=== PATIENT | female | born 1930 | race Caucasian/White ===

== ENCOUNTER → 2016-08-16 | Outpatient (CLI) | payer MEDICARE, BC ==
[2015-10-29 11:39] VITALS: BP 136/70
[~2016-08-16] MED LIST: AMLO5TAB2 PO; APIX2.5T PO; ATOR40TA59 PO; CIPR500T94 PO; CLOP75TA PO; CLOP75TA27 PO; FAMO-63 PO; FERR325T72 PO; LATA2.5D3 EACHEYE; LEVO250T7 PO; LOSA100T6 PO; METF500T4 PO; METO-313 PO; METO100T2 PO; MULT-658 PO; MULT1TAB6 PO; Oxycodone Hcl/Acetaminophen PO; TRAM50TA PO; WARF1TAB PO; ZOLP5TAB PO
[2016-08-16 11:45] LABS: BASO # 0.1 x10^3/uL (0.0-0.2); BASO % 1 % (0-3); EOS % 2 % (0-3); HEMATOCRIT 40.5 % (36.0-47.0); HEMOGLOBIN 13.4 g/dL (12.0-15.5); LYMPH # 1.4 x10^3/uL (1.0-4.8); LYMPH % 16 % (24-48); MEAN CORPUSCULAR HEMOGLOBIN 30 pg (25-35); MEAN CORPUSCULAR HGB CONC 33 g/dL (31-37); MEAN CORPUSCULAR VOLUME 90 fL (79-100); MONO % 11 % (0-9); NEUT % 70 % (31-73); PLATELET COUNT 174 x10^3/uL (140-400)
[2016-08-16 11:57] LABS: INR 1.2 (0.8-1.1); PROTHROMBIN TIME PATIENT 14.5 SEC (11.7-14.0)
--- NOTE | 2016-08-16 12:23 | EKG ---
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
[2016-08-16 12:29] LABS: ALBUMIN 3.7 g/dL (3.4-5.0); CALCIUM 9.6 mg/dL (8.5-10.1); CREATININE 1.1 mg/dL (0.6-1.0); GFR 47.2; POTASSIUM 4.6 mmol/L (3.5-5.1)
[2016-08-16 13:09] LABS: BILIRUBIN,URINE NEGATIVE (NEG); GLUCOSE,URINE NEGATIVE (NEG); NITRITE,URINE NEGATIVE (NEG); PROTEIN,URINE NEGATIVE (NEG-TRACE); UROBILINOGEN,URINE 0.2 mg/dL (0.2 mg/dL)
--- NOTE | 2016-08-16 13:12 | RAD ---
Indication preop. Anticipated knee surgery. PA and lateral views of the chest were obtained and are compared to an examination 10/27/2015. Heart and pulmonary vessels are unremarkable. Calcified hilar lymph nodes are noted similar to the previous exam. An acute parenchymal infiltrate in either lung is not seen. Significant pleural fluid is not seen. There is no pneumothorax. There has not been a significant change in the appearance of the chest compared to the previous exam. IMPRESSION: No acute finding in the chest. No significant change
[2016-08-16 13:34] LABS: BACTERIA,URINE MODERATE /HPF (0-FEW); RBC,URINE 0 /HPF (0-2); SQUAMOUS EPITHELIAL CELL,UR MOD /LPF
== END | disposition home or self-care (01) ==
LOC: SURGPAT 11:08
PROVIDERS: ATTEND Orthopaedic Surgery
DX: Z01.818 Encounter for other preprocedural examination (principal)
CPT/HCPCS: 36415; 71020; 80048; 81001; 82040; 83036; 85027; 85610; 85651; 85730; 87086; 87641; 93005

== ENCOUNTER → 2016-08-28 | Outpatient (CLI) | payer MEDICARE, BC ==
[2015-10-29 11:39] VITALS: BP 136/70
[~2016-08-28] MED LIST changes: +MORPHINE SULFATE 5 MG, KETOROLAC TROMETHAMINE 30 MG, ROPIVacaine 0.5% PF 60 ML, EPINEPH... INT ART ONE
[2016-08-28 10:23] LABS: BILIRUBIN,URINE NEGATIVE (NEG); GLUCOSE,URINE NEGATIVE (NEG); NITRITE,URINE NEGATIVE (NEG); PH,URINE 6.5; PROTEIN,URINE NEGATIVE (NEG-TRACE); UROBILINOGEN,URINE 0.2 mg/dL (0.2 mg/dL)
[2016-08-28 10:37] LABS: BACTERIA,URINE 0 /HPF (0-FEW); RBC,URINE 0 /HPF (0-2); SQUAMOUS EPITHELIAL CELL,UR MANY /LPF
== END | disposition home or self-care (01) ==
LOC: LAB 09:35
PROVIDERS: ATTEND Orthopaedic Surgery
DX: Z01.818 Encounter for other preprocedural examination (principal); N39.0 Urinary tract infection, site not specified
CPT/HCPCS: 81001; 87086; J0171; J1885; J2270; J2795

== ENCOUNTER → 2016-11-30 | Outpatient (CLI) | payer MEDICARE, BC ==
[~2016-11-30] MED LIST changes: -CLOP75TA27 PO; +CLOP75TA57 PO; -MORPHINE SULFATE 5 MG, KETOROLAC TROMETHAMINE 30 MG, ROPIVacaine 0.5% PF 60 ML, EPINEPH... INT ART ONE; +OXYC-323 PO; -WARF1TAB PO; +WARF1TAB74 PO
--- NOTE | 2016-11-30 08:50 | RAD ---
DATE: 11/30/2016 EXAM: DIGITAL SCREEN BILAT W/CAD HISTORY: Screening COMPARISON: One year earlier This study was interpreted with the benefit of Computerized Aided Detection (CAD). FINDINGS: Breast Density: SCATTERED The breast parenchyma shows scattered fibroglandular densities. Breast parenchyma level B. There has not been a significant change in the appearance of the breasts compared to the previous exam IMPRESSION: Benign finding BI-RADS CATEGORY: 2 BENIGN FINDING(S) RECOMMENDED FOLLOW-UP: 12M 12 MONTH FOLLOW-UP PQRS compliance statement: Patient information was entered into a reminder system with a target due date 11/30/2017 for the next mammogram. Mammography is a sensitive method for finding small breast cancers, but it does not detect them all and is not a substitute for careful clinical examination. A negative mammogram does not negate a clinically suspicious finding and should not result in delay in biopsying a clinically suspicious abnormality. "Our facility is accredited by the [employer] Mammography Program."
== END | disposition home or self-care (01) ==
LOC: MAMMO 08:10
PROVIDERS: ATTEND Family Medicine
DX: Z12.31 Encounter for screening mammogram for malignant neoplasm of breast (principal)
CPT/HCPCS: G0202; 77067

== ENCOUNTER 2017-01-27 12:07 | Observation (INO) | payer MEDICARE, BC ==
[~2017-01-27] VITALS: Ht 170.2 cm; Wt 78.9 kg
--- NOTE | 2017-01-27 12:50 | PHYS DOC ---
Past Medical History Past Medical History: Diabetes-Type II, High Cholesterol, Hypertension, [place], Stroke Past Surgical History: Appendectomy, Cholecystectomy, Hip Replacement, Hysterectomy, Knee Replacement Additional Past Surgical Histo: LEFT HIP,BILAT CATARACT Alcohol Use: None Drug Use: None Adult General Chief Complaint Chief Complaint: WEAKNESS/GENERALIZED HPI HPI Patient is a 86 year old [f__sex] who presents with [] Review of Systems Review of Systems Constitutional: Denies fever or chills [] Eyes: Denies change in visual acuity, redness, or eye pain [] HENT: Denies nasal congestion or sore throat [] Respiratory: Denies cough or shortness of breath [] Cardiovascular: No additional information not addressed in HPI [] GI: Denies abdominal pain, nausea, vomiting, bloody stools or diarrhea [] : Denies dysuria or hematuria [] Musculoskeletal: Denies back pain or joint pain [] Integument: Denies rash or skin lesions [] Neurologic: Denies headache, focal weakness or sensory changes [] Endocrine: Denies polyuria or polydipsia [] Allergies Allergies Allergies Coded Allergies Type Severity Reaction Last Updated Verified MAHOGANY Inhibitors Allergy Intermediate 08/29/16 Yes Histamine H2 Inhibitors Allergy Intermediate Rash 08/29/16 Yes aspirin Adverse Reaction Intermediate GASTRIC IRRITATION 08/29/16 Yes Physical Exam Physical Exam Constitutional: Well developed, well nourished, no acute distress, non-toxic appearance. [] HENT: Normocephalic, atraumatic, bilateral external ears normal, oropharynx moist, no oral exudates, nose normal. [] Eyes: PERRLA, EOMI, conjunctiva normal, no discharge. [] Neck: Normal range of motion, no tenderness, supple, no stridor. [] Cardiovascular:Heart rate regular rhythm, no murmur [] Lungs & Thorax: Bilateral breath sounds clear to auscultation [] Abdomen: Bowel sounds normal, soft, no tenderness, no masses, no pulsatile masses. [] Skin: Warm, dry, no erythema, no rash. [] Back: No tenderness, no CVA tenderness. [] Extremities: No tenderness, no cyanosis, no clubbing, ROM intact, no edema. [] Neurologic: Alert and oriented X 3, normal motor function, normal sensory function, no focal deficits noted. [] Psychologic: Affect normal, judgement normal, mood normal. [] Current Patient Data Vital Signs Vital Signs Date Time Temp Pulse Resp B/P (MAP) Pulse Ox O2 Delivery O2 Flow Rate FiO2 01/27/17 12:41 98.3 71 18 183/89 (120) 100 Room Air 98.3 Lab Values Laboratory Tests Test 01/27/17 12:55 01/27/17 13:10 White Blood Count 9.3 x10^3/uL (4.0-11.0) Red Blood Count 4.65 x10^6/uL (3.50-5.40) Hemoglobin 13.4 g/dL (12.0-15.5) Hematocrit 41.0 % (36.0-47.0) Mean Corpuscular Volume 88 fL (79-100) Mean Corpuscular Hemoglobin 29 pg (25-35) Mean Corpuscular Hemoglobin Concent 33 g/dL (31-37) Red Cell Distribution Width 16.1 % (11.5-14.5) H Platelet Count 182 x10^3/uL (140-400) Neutrophils (%) (Auto) 76 % (31-73) H Lymphocytes (%) (Auto) 14 % (24-48) L Monocytes (%) (Auto) 8 % (0-9) Eosinophils (%) (Auto) 1 % (0-3) Basophils (%) (Auto) 1 % (0-3) Neutrophils # (Auto) 7.1 x10^3uL (1.8-7.7) Lymphocytes # (Auto) 1.3 x10^3/uL (1.0-4.8) Monocytes # (Auto) 0.8 x10^3/uL (0.0-1.1) Eosinophils # (Auto) 0.1 x10^3/uL (0.0-0.7) Basophils # (Auto) 0.1 x10^3/uL (0.0-0.2) Sodium Level 137 mmol/L (136-145) Potassium Level 4.4 mmol/L (3.5-5.1) Chloride Level 101 mmol/L (98-107) Carbon Dioxide Level 26 mmol/L (21-32) Anion Gap 10 (6-14) Blood Urea Nitrogen 12 mg/dL (7-20) Creatinine 1.1 mg/dL (0.6-1.0) H Estimated GFR (Cockcroft-Gault) 47.2 Glucose Level 122 mg/dL (70-99) H Calcium Level 9.8 mg/dL (8.5-10.1) Total Bilirubin 0.4 mg/dL (0.2-1.0) Direct Bilirubin 0.1 mg/dL (0.0-0.2) Aspartate Amino Transferase (AST) 25 U/L (15-37) Alanine Aminotransferase (ALT) 35 U/L (14-59) Alkaline Phosphatase 70 U/L (46-116) Troponin I Quantitative < 0.017 ng/mL (0.000-0.055) Total Protein 7.3 g/dL (6.4-8.2) Albumin 3.8 g/dL (3.4-5.0) Urine Collection Type Unknown Urine Color Yellow Urine Clarity Clear Urine pH 6.5 Urine Specific [place] <=1.005 Urine Protein Negative mg/dL (NEG-TRACE) Urine Glucose (UA) Negative mg/dL (NEG) Urine Ketones (Stick) Negative mg/dL (NEG) Urine Blood Negative (NEG) Urine Nitrite Negative (NEG) Urine Bilirubin Negative (NEG) Urine Urobilinogen Dipstick 0.2 mg/dL (0.2 mg/dL) Urine Leukocyte Esterase Moderate (NEG) Urine RBC 0 /HPF (0-2) Urine WBC 11-20 /HPF (0-4) Urine Squamous Epithelial Cells Few /LPF Urine Transitional Epithelial Cells Few /LPF Urine Bacteria Many /HPF (0-FEW) Laboratory Tests 01/27/17 12:55 Laboratory Tests 01/27/17 12:55 EKG EKG 1233 SR 73 no stemi, TWI V1-2[] 1325 SR 71, no stemi, TWI V1-2 TWI have been seen previously in past ekgs on 11/10 and 06/11 Sinus monitor shows irregular rhythm occasionally. Radiology/Procedures Radiology/Procedures nothing acute on cxr[] Course & Med Decision Making Course & Med Decision Making Pertinent Labs and Imaging studies reviewed. (See chart for details) 1400 pt in nad, agrees for obs admit for monitoring. [address] Goel (covering for Dr Martinez), agrees with obs and admit under Juan she will see pt today. [] Dragon Disclaimer Dragon Disclaimer This electronic medical record was generated, in whole or in part, using a voice recognition dictation system. Departure Departure Impression: Primary Impression: Weakness Additional Impression: Irregular heart beat Disposition: ADMITTED INPATIENT Admitting Physician: Gómez Martinez Condition: STABLE Referrals: STEVEN CLAIRE MD (PCP) Problem Qualifiers Carleen POOLE MD Jan 27, 2017 12:50
[2017-01-27 13:04] LABS: BASO # 0.1 x10^3/uL (0.0-0.2); BASO % 1 % (0-3); EOS % 1 % (0-3); HEMOGLOBIN 13.4 g/dL (12.0-15.5); LYMPH # 1.3 x10^3/uL (1.0-4.8); LYMPH % 14 % (24-48); MEAN CORPUSCULAR HEMOGLOBIN 29 pg (25-35); MEAN CORPUSCULAR HGB CONC 33 g/dL (31-37); MEAN CORPUSCULAR VOLUME 88 fL (79-100); MONO % 8 % (0-9); NEUT % 76 % (31-73); PLATELET COUNT 182 x10^3/uL (140-400); RED BLOOD COUNT 4.65 x10^6/uL (3.50-5.40); RED CELL DISTRIBUTION WIDTH 16.1 % (11.5-14.5); WHITE BLOOD COUNT 9.3 x10^3/uL (4.0-11.0)
[2017-01-27 13:11] LABS: CALCIUM 9.8 mg/dL (8.5-10.1); CREATININE 1.1 mg/dL (0.6-1.0); GFR 47.2; POTASSIUM 4.4 mmol/L (3.5-5.1)
[2017-01-27 13:16] LABS: BILIRUBIN,URINE NEGATIVE (NEG); GLUCOSE,URINE NEGATIVE (NEG); NITRITE,URINE NEGATIVE (NEG); PH,URINE 6.5; PROTEIN,URINE NEGATIVE (NEG-TRACE); UROBILINOGEN,URINE 0.2 mg/dL (0.2 mg/dL)
[2017-01-27 13:20] LABS: ALBUMIN 3.8 g/dL (3.4-5.0); DIRECT BILIRUBIN 0.1 mg/dL (0.0-0.2); TOTAL BILIRUBIN 0.4 mg/dL (0.2-1.0); TOTAL PROTEIN 7.3 g/dL (6.4-8.2)
--- NOTE | 2017-01-27 13:45 | RAD ---
EXAM: CHEST 1 VIEW History: Weakness, dizziness COMPARISON: 08/16/2016 TECHNIQUE: Single portable radiograph of the chest FINDINGS: The cardiac silhouette is unremarkable. The lungs are clear bilaterally. The costophrenic sulci are clear and well demarcated. Bilateral hilar calcified lymph nodes identified. IMPRESSION: No radiographic evidence of an acute cardiopulmonary process.
[2017-01-27 13:49] LABS: BACTERIA,URINE MANY /HPF (0-FEW); RBC,URINE 0 /HPF (0-2); SQUAMOUS EPITHELIAL CELL,UR FEW /LPF
[2017-01-27] MEDS ORDERED: ONDANSETRON PF 4 MG/2 ML VIAL. IV PRN (14:15)
[2017-01-27 15:00] VITALS: BP 151/71
--- NOTE | 2017-01-27 15:24 | EKG ---
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
[2017-01-27 15:30] VITALS: BP 151/71
[2017-01-27] MEDS ORDERED: TRAM50TA PO (16:07)
[2017-01-27] MEDS ORDERED: ATOR40TA59 PO (16:07)
[2017-01-27] MEDS ORDERED: traMADol 50 MG TABLET PO PRN (17:15)
[2017-01-27] MEDS: metFORMIN 500 MG TABLET PO SCH (17:30)
[2017-01-27] MEDS: LOSARTAN POTASSIUM 50 MG TABLET. PO SCH (17:33)
[2017-01-27] MEDS: amLODIPine BESYLATE 5 MG TABLET PO SCH (17:33)
--- NOTE | 2017-01-27 18:39 | EKG ---
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
[2017-01-27 19:11] VITALS: BP 143/65
[2017-01-27] MEDS ORDERED: LATANOPROST 0.005% OPHTH SOLUTION 2.5ML BOTTLE. OU SCH (21:00)
[2017-01-27] MEDS ORDERED: ATORVASTATIN CALCIUM 40 MG TABLET. PO SCH (21:00)
[2017-01-27] MEDS: APIXABAN 2.5 MG TABLET. PO SCH (21:55)
[2017-01-27] MEDS: METOPROLOL TART IMMED RELEASE 50 MG TABLET. PO SCH (21:56)
[2017-01-27 23:00] VITALS: BP 127/60
--- NOTE | 2017-01-28 01:57 | ACF ---
Admission Forms Criteria TELEMETRY CARE Telemetry Admission Guidelines (Place 'X' for any and all applicable criteria): Admission to telemetry [A] may be indicated for ANY ONE of the following(1)(2)(3 )(4)(5): [ X]I. Cardiac disease, including ANY ONE of the following (9)(10)(11)(12)( 13): [ ]a) Postacute WV [ ]b) Low-risk patients with ST-segment elevation WV who have undergone successful percutaneous coronary intervention [ ]c) Unstable angina [ ]d) Suspected WV (until it is ruled out) [ ]e) Post cardiac surgery (first 48 to 72 hours unless complications occur) [ X]f) Acute arrhythmias (including significant tachycardia or bradycardia) [B] [ ]g) Firing of an implantable cardioverter defibrillator [C] [ ]h) Suspected pacemaker or implantable cardioverter defibrillator malfunction (10) [ ]i) New administration or adjustment of an antiarrhythmic drug [D ] [ ]j) Child admitted for acute congestive heart failure [ ]j) Long QT syndrome [ ]k) Advanced heart block (eg, second-degree Mobitz type II, third- degree heart block) [ ]l) Acute myocarditis or pericarditis [ ]m) Short-term (ambulatory or inpatient) monitoring after a cardiac procedure as indicated by ANY ONE of the following [E]: [ ]i) Electrophysiologic studies [ ]ii) Percutaneous coronary intervention with stent placement [ ]iii) Pacemaker placement with cardiac conduction defect [ ]iv) Implantable cardiac defibrillator placement [ ]II. Drug overdose or poisoning with substance that causes arrhythmias or QT prolongation (eg, phenothiazines, sympathomimetic agents, cyclic antidepressants, digitalis, antiarrhythmic drugs)(15) [ ]III. Short-term (ambulatory or inpatient) monitoring after therapeutic or diagnostic procedure requiring conscious sedation or anesthesia (eg, endoscopy, elective cardioversion) [ ]IV. Acute cerebrovascular even[F](18) [ ]V. Massive blood transfusion (eg, at least 10 units of packed red blood cells in 24 hours) [ ]. Variceal bleeding after endoscopy, sclerotherapy, or IV vasopressin [ ]VII. Uncorrected electrolyte abnormalities associated with an increased risk of dangerous arrhythmia [G]; examples include [ ]a) Hyperkalemia with attributable ECG changes [ ]b) Potassium greater than 6.5 mmol/L (mEq/L) in a patient without history of chronic renal disease [ ]c) Prolonged QT attributed to hypokalemia, hypomagnesemia, or hypocalcemia [ ]VIII.Unexplained syncope or other neurologic event suspected of being due to arrhythmia due to a finding that increases risk; examples include(19)(20)(21): [ ]a) High-risk ECG findings (eg, bifascicular block, bradycardia, abnormal QT interval, ventricular pre- excitation) [ ]b) History of previous syncope due to arrhythmia [ ]c) Abnormal ventricular function (eg, reduced ejection fraction ) [ ]d) Exertional or supine syncope [ ]e) Concerning syncope characteristics (eg, sudden loss of consciousness without prodrome) [ ]f) Family history of sudden [ ]g) Use of arrhythmogenic medication [ ]h) Suspected cardiac ischemia [ ]i) Known channelopathy (eg, long QT syndrome, Brugada syndrome, or catecholaminergic paroxysmal ventricular tachycardia) [ ]j) Known structural heart disease (eg, hypertrophic cardiomyopathy , severe valvular disease) [ ]k) Palpitations preceding syncope The original [employer] content created by [employer] has been revised. The portions of the content which have been revised are identified through the use of italic text or in bold, and [facility] has neither reviewed nor approved the modified material. All other unmodified content is copyright [employer]. Please see references footnoted in the original [employer] edition 2015 Admission Criteria Met?: Yes MEKHI HILARIO Jan 28, 2017 01:57
[2017-01-28 03:00] LABS: BASO # 0.1 x10^3/uL (0.0-0.2); BASO % 1 % (0-3); EOS % 2 % (0-3); HEMATOCRIT 36.8 % (36.0-47.0); HEMOGLOBIN 12.1 g/dL (12.0-15.5); LYMPH # 2.3 x10^3/uL (1.0-4.8); LYMPH % 25 % (24-48); MEAN CORPUSCULAR HEMOGLOBIN 29 pg (25-35); MEAN CORPUSCULAR HGB CONC 33 g/dL (31-37); MEAN CORPUSCULAR VOLUME 88 fL (79-100); MONO % 11 % (0-9); NEUT % 62 % (31-73); PLATELET COUNT 162 x10^3/uL (140-400); RED BLOOD COUNT 4.18 x10^6/uL (3.50-5.40); RED CELL DISTRIBUTION WIDTH 16.2 % (11.5-14.5); WHITE BLOOD COUNT 9.1 x10^3/uL (4.0-11.0)
[2017-01-28 03:13] VITALS: BP 129/60
[2017-01-28 03:13] LABS: CALCIUM 9.2 mg/dL (8.5-10.1); CREATININE 1.1 mg/dL (0.6-1.0); GFR 47.2; POTASSIUM 4.3 mmol/L (3.5-5.1)
[2017-01-28 07:00] VITALS: BP 125/59
[2017-01-28] MEDS ORDERED: LOSARTAN POTASSIUM 50 MG TABLET. PO SCH (09:00)
[2017-01-28] MEDS: APIXABAN 2.5 MG TABLET. PO SCH (09:11)
[2017-01-28] MEDS: amLODIPine BESYLATE 5 MG TABLET PO SCH (09:11)
[2017-01-28] MEDS: metFORMIN 500 MG TABLET PO SCH (09:11)
[2017-01-28] MEDS: METOPROLOL TART IMMED RELEASE 50 MG TABLET. PO SCH (09:11)
[2017-01-28 09:12] VITALS: BP 125/59
[2017-01-28] MEDS: LOSARTAN POTASSIUM 50 MG TABLET. PO SCH (09:12)
[2017-01-28] MEDS ORDERED: LEVO750T5 PO (11:19)
--- NOTE | 2017-01-28 12:41 | CARD ---
APPROVED REPORT EXAM: Two-dimensional and M-mode echocardiogram with Doppler and color Doppler. Other Information Quality : GoodHR: 77bpm Rhythm : Irregular INDICATION Dizziness and Vertigo RISK FACTORS Hypertension 2D DIMENSIONS RVDd2.9 (2.9-3.5cm)Left Atrium(2D)3.7 (1.6-4.0cm) IVSd1.0 (0.7-1.1cm)Aortic Root(2D)2.5 (2.0-3.7cm) LVDd4.9 (3.9-5.9cm)LVOT Diameter2.1 (1.8-2.4cm) PWd1.0 (0.7-1.1cm)LVDs3.2 (2.5-4.0cm) FS (%) 35.0 %SV73.3 ml LVEF(%)64.0 (>50%) Aortic Valve AoV Peak Chuck.128.2cm/sAoV VTI30.0cm AO Peak GR.6.6mmHgLVOT Peak Chuck.111.0cm/s AO Mean GR.4mmHgAVA (VMAX)3.04cm2 Mitral Valve MV E Rxryenbk87.2cm/sMV E Peak Gr.3mmHg MV DECEL [id number] A Uyryjlzx73.8cm/s MV E Mean Gr.2mmHgE/A Ratio1.3 MV A [id number] Pulmonary Valve PV Peak Wfsecvvm97.6cm/s Tricuspid Valve TR P. Asgpepmf219jn/sTR Peak Gr.39mmHg Pulmonary Vein S1 Mrwxbnnm75.5cm/sD2 Hcmfqgpz01.5cm/s PVa qcwsuxni32tcjh LEFT VENTRICLE The left ventricle is normal size. There is normal left ventricular wall thickness. The left ventricu lar systolic function is normal.e The Ejection Fraction is 60-65%. There is normal LV segmental wall motion. Transmitral Doppler flow pattern is normal for age. RIGHT VENTRICLE The right ventricle is normal size. There is normal right ventricular wall thickness. The right ventr icular systolic function is normal. ATRIA The left atrium size is normal. The right atrium size is normal. The interatrial septum is intact wit h no evidence for an atrial septal defect or patent foramen ovale as noted on 2-D or Doppler imaging. AORTIC VALVE The aortic valve is mildly sclerotic. The aortic valve is trileaflet. Doppler and Color Flow revealed no significant aortic regurgitation. There is no significant aortic valvular stenosis. MITRAL VALVE Mitral annular calcification is mild. The mitral valve leaflets are thickened and calcified. There is no evidence of mitral valve prolapse. There is no mitral valve stenosis. Doppler and Color Flow reve aled mild to moderate mitral regurgitation. TRICUSPID VALVE Doppler and Color Flow revealed mild tricuspid regurgitation. The pulmonary artery systolic pressure is estimated at 42 mmHg. There is mild pulmonary hypertension. PULMONIC VALVE The pulmonic valve is not well visualized but appears to open adequately. Doppler and Color Flow reve aled no pulmonic valvular regurgitation. There is no pulmonic valvular stenosis by spectral Doppler. GREAT VESSELS The aortic root is normal in size. The ascending aorta is normal in size. The pulmonary artery is nor mal. The IVC is normal in size and collapses >50% with inspiration. PERICARDIAL EFFUSION There is no evidence of significant pericardial effusion. Critical Notification Critical Value: No <Conclusion> The left ventricle is normal size. There is normal left ventricular wall thickness. The left ventricular systolic function is normal.e The Ejection Fraction is 60-65%. Transmitral Doppler flow pattern is normal for age. There is no evidence of significant pericardial effusion. Mitral annular calcification is mild. The mitral valve leaflets are thickened and calcified. There is no mitral valve stenosis. Doppler and Color Flow revealed mild to moderate mitral regurgitation. The left atrium is of a normal size. There is no aortic stenosis or regurgitation. The right ventricle is of a normal size with normal systolic function. Doppler and Color Flow revealed mild tricuspid regurgitation. The pulmonary artery systolic pressure is estimated at 42 mmHg. There is mild pulmonary hypertension. The pulmonic valve is normal.
--- NOTE | 2017-01-28 19:10 | DS ---
DATE OF DISCHARGE: 01/28/2017 HOSPITAL COURSE: This is an 86-year-old white female who presented herself to the Emergency Room with marked weakness and dizziness. She had no pain. She was concerned that she could be having a problem such as a TIA, which she has had before, more of acute coronary syndrome and she has had that also before with a stent placement. She went to the urgent care today. She was noted to have some extra beats. She was asked to go to the Emergency Room. In the Emergency Room, it was noted that these extra beats were due to premature atrial contractions. LABORATORY INVESTIGATIONS: Were as follows: The hemoglobin was 12.1. The sodium was 142, potassium 4.3, BUN was 14 and creatinine was 1.1. The troponin was negative. The total cholesterol was 161. Triglycerides 99, LDL cholesterol 87 and HDL cholesterol was 54. Urinalysis showed moderate urine leukocyte esterase. Urine nitrite was negative. There 11-20 wbc's per high power field. She had no urinary symptoms of dysuria or frequency. She had no fever. She was surprised that she might have had a UTI. A chest x-ray was unremarkable. The EKG was normal except for PACs. She was observed. She was feeling much better. She had no further symptoms. There were no arrhythmias. She was given 1 g of Rocephin IV on the day of admission and she was started on levofloxacin 500 mg once a day. The urine culture was not yet available. Because of her weakness and fatigue, an echocardiogram was done. This showed EF of 60%-65%. There was a grade 1 diastolic dysfunction. There is mild to moderate mitral regurgitation. There was mild pulmonary hypertension with right ventricular systolic pressure of 42 mmHg. She was feeling well on 01/27/2017. She was anxious to go home. She was thus discharged. FINAL DIAGNOSES: 1. Weakness and fatigue, probably due to urinary tract infection. 2. Urinary tract infection, organism not yet identified. 3. Hypertension, under control. 4. Coronary artery disease. 5. Diabetes mellitus. HOMEGOING INSTRUCTIONS: 1. She was asked to take levofloxacin 500 mg for 2 more days. 2. Cranberry juice. 3. Heart healthy diet. 4. She was asked to continue to take her medications, which were: 5. Amlodipine 5 mg a day. 6. Eliquis 2.5 mg twice a day, which she has been taking ever since her stroke. 7. Atorvastatin 40 mg at night. 8. Latanoprost eye drops. 9. Losartan 100 mg a day. 10. Metformin 500 mg twice a day. 11. Metoprolol 100 mg a day. 12. Tramadol p.r.n. I plan to call the Bacteriology Department, further urine culture and sensitivity and the antibiotics will be changed and Dr. Sotelo informed. If the organism is not sensitive to this, levofloxacin. She was asked to see Dr. Sotelo within the week. By then, we should have the results of the urine culture and sensitivity. KEMAR KNOX MD DR: ELSA/saqib JOB#: [id number] / [id number]
== END 2017-01-28 11:40 | disposition home or self-care (01) ==
LOC: ER 12:07 → 2 SOUTH 13:57
PROVIDERS: ADMIT Internal Medicine Cardiovascular Disease; ATTEND Internal Medicine Cardiovascular Disease
DX: R53.1 Weakness (principal); I49.8 Other specified cardiac arrhythmias; E11.9 Type 2 diabetes mellitus without complications; E78.00 Pure hypercholesterolemia, unspecified; I10 Essential (primary) hypertension; I25.2 Old myocardial infarction; Z86.73 Personal history of transient ischemic attack (TIA), and cerebral infarction without residual deficits; N39.0 Urinary tract infection, site not specified; I25.10 Atherosclerotic heart disease of native coronary artery without angina pectoris; I49.1 Atrial premature depolarization; Z79.01 Long term (current) use of anticoagulants; Z79.899 Other long term (current) drug therapy; Z96.659 Presence of unspecified artificial knee joint; Z96.649 Presence of unspecified artificial hip joint
CPT/HCPCS: 36415; 71010; 80048; 80061; 80076; 81001; 82962; 83036; 84484; 85025; 87086; 87186; 93005; 93306; 96365; 99285; G0378; J0696; G0379

== ENCOUNTER → 2017-12-04 | Outpatient (CLI) | payer MEDICARE, BC | END | disposition home or self-care (01) | LOC: MAMMO 08:37 | DX: Z12.31 Encounter for screening mammogram for malignant neoplasm of breast (principal); I10 Essential (primary) hypertension; E11.9 Type 2 diabetes mellitus without complications; E78.5 Hyperlipidemia, unspecified; E78.00 Pure hypercholesterolemia, unspecified | CPT/HCPCS: 77063; 77067 ==

== ENCOUNTER 2018-08-30 11:10 | Inpatient (IN) | payer MEDICARE, BC ==
[~2018-08-30] VITALS: Ht 170.2 cm; Wt 74.8 kg
[~2018-08-30 11:10] MED LIST changes: +AMLO5TAB10 PO; -AMLO5TAB2 PO; +LEVO750T5 PO; +LOSA100T14 PO; -LOSA100T6 PO; +METF500T16 PO; -METF500T4 PO; -METO100T2 PO; +METO100T7 PO; -OXYC-323 PO; +OXYC1TAB15 PO
[2018-08-30] MEDS ORDERED: IV NORMAL SALINE 500ML BAG 500 ML IV ONE (12:15)
[2018-08-30 12:17] LABS: BASO # 0.1 x10^3/uL (0.0-0.2); BASO % 1 % (0-3); EOS # 0.1 x10^3/uL (0.0-0.7); EOS % 1 % (0-3); HEMATOCRIT 38.2 % (36.0-47.0); HEMOGLOBIN 11.8 g/dL (12.0-15.5); LYMPH # 0.6 x10^3/uL (1.0-4.8); LYMPH % 5 % (24-48); MEAN CORPUSCULAR HEMOGLOBIN 28 pg (25-35); MEAN CORPUSCULAR HGB CONC 31 g/dL (31-37); MEAN CORPUSCULAR VOLUME 89 fL (79-100); MONO # 0.7 x10^3/uL (0.0-1.1); MONO % 5 % (0-9); NEUT # 10.7 x10^3uL (1.8-7.7); NEUT % 88 % (31-73); PLATELET COUNT 231 x10^3/uL (140-400); RED CELL DISTRIBUTION WIDTH 15.7 % (11.5-14.5); WHITE BLOOD COUNT 12.1 x10^3/uL (4.0-11.0)
[2018-08-30 12:18] LABS: BILIRUBIN,URINE NEGATIVE (NEG); CLARITY,URINE CLOUDY; COLOR,URINE YELLOW; NITRITE,URINE POSITIVE (NEG); PROTEIN,URINE NEGATIVE (NEG-TRACE)
--- NOTE | 2018-08-30 12:28 | EKG ---
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
--- NOTE | 2018-08-30 12:30 | PHYS DOC ---
Past Medical History Past Medical History: Diabetes-Type II, High Cholesterol, Hypertension, [place], Stroke, TIA, UTI Past Surgical History: Appendectomy, Cholecystectomy, Hip Replacement, Hysterectomy, Knee Replacement Additional Past Surgical Histo: LEFT HIP,BILAT CATARACT Past Surgical History cardiac stent Alcohol Use: None Drug Use: None Adult General Chief Complaint Chief Complaint: WEAKNESS/GENERALIZED HPI HPI Patient is a 88 year old female who presents with generalize weakness with slurring speech and nausea since 10 am this morning. Last known normal was 10 am one day before when her son visited her home. She states that she is feeling significantly better now, with resolving strength, and diminished nausea. She reports one prior TIA with no focal deficits. She denies CP/palpitations, SOB, LEACH, change in vision. She denies abdominal pain, but reports some constipation which also resolved upon coming to the ER. She denies frequency, hematuria, dysuria but does have a history of UTI. She reports minimal appetite in general. Review of Systems Review of Systems Constitutional: Denies fever or chills, reports generalized weakness[] Eyes: Denies change in visual acuity, redness, or eye pain [] HENT: Denies nasal congestion or sore throat [] Respiratory: Denies cough or shortness of breath [] Cardiovascular: No additional information not addressed in HPI [] GI: Reports resolving nausea, denies abdominal pain, vomiting, bloody stools or diarrhea [] : Denies dysuria or hematuria, or frequency[] Musculoskeletal: Denies back pain or joint pain [] Integument: Denies rash or skin lesions [] Neurologic: Denies headache, focal weakness or sensory changes [] Endocrine: Denies polyuria or polydipsia [] All other systems were reviewed and found to be within normal limits, except as documented in this note. Current Medications Current Medications Current Medications Medications (Trade) Dose Ordered Sig/Nelly Start Time Stop Time Status Last Admin Dose Admin Ceftriaxone Sodium (Rocephin) 1 gm 1X ONCE 08/30/18 13:30 08/30/18 13:31 DC 08/30/18 14:13 1 GM Doxycycline Hyclate 100 mg/ Dextrose 100 ml @ 50 mls/hr 1X ONCE 08/30/18 13:30 08/30/18 15:29 08/30/18 14:14 50 MLS/HR Sodium Chloride 1,000 ml @ 50 mls/hr Q20H 08/30/18 14:10 08/31/18 02:09 08/30/18 14:10 50 MLS/HR see medication list Allergies Allergies Allergies Coded Allergies Type Severity Reaction Last Updated Verified MAHOGANY Inhibitors Allergy Intermediate 08/29/16 Yes Histamine H2 Inhibitors Allergy Intermediate Rash 08/29/16 Yes aspirin Adverse Reaction Intermediate GASTRIC IRRITATION 08/29/16 Yes Physical Exam Physical Exam Constitutional: Well developed, well nourished, no acute distress, non-toxic appearance. [] HENT: Normocephalic, atraumatic, bilateral external ears normal, oropharynx dry , no oral exudates, nose normal. [] Eyes: PERRLA, EOMI, conjunctiva normal, no discharge. [] Neck: Normal range of motion, no tenderness, supple, no stridor. [] Cardiovascular:Heart rate regular rhythm, Lungs & Thorax: Decreased bibasilar breath sounds. Abdomen: Bowel sounds normal, soft, no tenderness, no masses, no pulsatile masses. [] Skin: Warm, dry, no erythema, no rash. [] Back: No tenderness, no CVA tenderness. [] Extremities: No tenderness, no cyanosis, no clubbing, ROM intact, 1+ symmetric edema noted Neurologic: Alert and oriented X 3, CN 2-11, negative cerebellar signs, normal motor function, normal sensory function, no focal deficits noted. []Possibly mild slurred speech but more likely related to the dry mucous membranes Psychologic: Affect normal, judgement normal, mood normal. [] Current Patient Data Vital Signs Vital Signs Date Time Temp Pulse Resp B/P (MAP) Pulse Ox O2 Delivery O2 Flow Rate FiO2 08/30/18 11:28 97.5 71 20 147/67 (93) 97 Room Air 97.5 Lab Values Laboratory Tests Test 08/30/18 11:37 08/30/18 11:41 08/30/18 12:00 08/30/18 13:00 White Blood Count 12.1 x10^3/uL (4.0-11.0) H Red Blood Count 4.30 x10^6/uL (3.50-5.40) Hemoglobin 11.8 g/dL (12.0-15.5) L Hematocrit 38.2 % (36.0-47.0) Mean Corpuscular Volume 89 fL (79-100) Mean Corpuscular Hemoglobin 28 pg (25-35) Mean Corpuscular Hemoglobin Concent 31 g/dL (31-37) Red Cell Distribution Width 15.7 % (11.5-14.5) H Platelet Count 231 x10^3/uL (140-400) Neutrophils (%) (Auto) 88 % (31-73) H Lymphocytes (%) (Auto) 5 % (24-48) L Monocytes (%) (Auto) 5 % (0-9) Eosinophils (%) (Auto) 1 % (0-3) Basophils (%) (Auto) 1 % (0-3) Neutrophils # (Auto) 10.7 x10^3uL (1.8-7.7) H Lymphocytes # (Auto) 0.6 x10^3/uL (1.0-4.8) L Monocytes # (Auto) 0.7 x10^3/uL (0.0-1.1) Eosinophils # (Auto) 0.1 x10^3/uL (0.0-0.7) Basophils # (Auto) 0.1 x10^3/uL (0.0-0.2) Segmented Neutrophils % 87 % (35-66) H Lymphocytes % 9 % (24-48) L Monocytes % 4 % (0-10) Platelet Estimate Adequate (ADEQUATE) Glucose (Fingerstick) 125 mg/dL (70-99) H Urine Collection Type Unknown Urine Color Yellow Urine Clarity Cloudy Urine pH 6.0 Urine Specific [place] 1.015 Urine Protein Negative mg/dL (NEG-TRACE) Urine Glucose (UA) Negative mg/dL (NEG) Urine Ketones (Stick) Negative mg/dL (NEG) Urine Blood Trace (NEG) Urine Nitrite Positive (NEG) Urine Bilirubin Negative (NEG) Urine Urobilinogen Dipstick 1.0 mg/dL (0.2 mg/dL) Urine Leukocyte Esterase Large (NEG) Urine RBC 0 /HPF (0-2) Urine WBC Tntc /HPF (0-4) Urine Squamous Epithelial Cells Few /LPF Urine Bacteria Many /HPF (0-FEW) Urine Hyaline Casts Few /HPF Urine Mucus Slight /LPF Prothrombin Time 15.6 SEC (11.7-14.0) H Prothrombin Time INR 1.3 (0.8-1.1) H Sodium Level 140 mmol/L (136-145) Potassium Level 4.7 mmol/L (3.5-5.1) Chloride Level 106 mmol/L (98-107) Carbon Dioxide Level 24 mmol/L (21-32) Anion Gap 10 (6-14) Blood Urea Nitrogen 19 mg/dL (7-20) Creatinine 1.3 mg/dL (0.6-1.0) H Estimated GFR (Cockcroft-Gault) 38.7 BUN/Creatinine Ratio 15 (6-20) Glucose Level 115 mg/dL (70-99) H Calcium Level 9.7 mg/dL (8.5-10.1) Total Bilirubin 0.5 mg/dL (0.2-1.0) Aspartate Amino Transferase (AST) 21 U/L (15-37) Alanine Aminotransferase (ALT) 20 U/L (14-59) Alkaline Phosphatase 83 U/L (46-116) Troponin I Quantitative < 0.017 ng/mL (0.000-0.055) Total Protein 7.0 g/dL (6.4-8.2) Albumin 3.4 g/dL (3.4-5.0) Albumin/Globulin Ratio 0.9 (1.0-1.7) L Laboratory Tests 08/30/18 11:37 Laboratory Tests 08/30/18 13:00 EKG EKG []EKG shows normal sinus rhythm rate of 67 there is some probably J-point borderline and does not meet criteria elevation in V2 alone compared to EKG dated 01/27/2017 this is slightly different otherwise no obvious STEMI or ischemia was identified Radiology/Procedures Radiology/Procedures []Impression: 1. There is no evidence of acute intracranial hemorrhage. There are some small foci of low density on the right in the parietal region corresponding with site of previous infarcts MRI brain and 2016. If there is concern for more recent or evolving ischemia, follow-up CT or MRI may be beneficial. Electronically signed by: Socorro Oconnell MD (08/30/2018 12:50 PM) [id number] DICTATED and SIGNED BY: SOCORRO OCONNELL MD DATE: 08/30/18 1250 Impressions: IMPRESSION: Small bilateral pleural effusions and mild bibasilar airspace disease. Electronically signed by: Niranjan Lovelace MD (08/30/2018 12:34 PM) [id number] DICTATED and SIGNED BY: NIRANJAN LOVELACE MD DATE: 08/30/18 1234 Course & Med Decision Making Course & Med Decision Making Pertinent Labs and Imaging studies reviewed. (See chart for details) Pt presents with generalized weakness, nausea and slurry speech , 88-year-old female on Elena Christiano, known CAD, PRIOR CVA, DM, HTN, HLD, resulting with generalized weakness some nausea really no chest pain did have transient abdominal pain around 10 AM family was concerned about slurred speech that has since resolved ER workup shows UTI as well as probable pneumonia. Head CT noted no obvious acute findings, and family says slurred speech is basically back to baseline now. I suspect she has dehydration UTI and pneumonia can cycle troponins in the hospital as well. EKG was slightly different but no definite acute ischemia []D/W ALETHEA IN AGREEMTN. Dragon Disclaimer Dragon Disclaimer This electronic medical record was generated, in whole or in part, using a voice recognition dictation system. Departure Departure Impression: Primary Impression: Pneumonia Additional Impression: Urinary tract infection Disposition: 09 ADMITTED INPATIENT Admitting Physician: Prema Sotelo Condition: STABLE Referrals: PREMA SOTELO MD (PCP) Problem Qualifiers DAVID RICHARDSON MD Aug 30, 2018 12:30
[2018-08-30 12:37] LABS: HYALINE CASTS, URINE FEW /HPF; SQUAMOUS EPITHELIAL CELL,UR FEW /LPF
--- NOTE | 2018-08-30 12:37 | RAD ---
PORTABLE CHEST 1V Clinical Indication: weakness Comparison: AP chest, January 27, 2017. Findings: Atherosclerotic thoracic aorta. Calcified bilateral hilar lymph nodes are stable. The cardiac size is normal. There is no pneumothorax. There are small bilateral pleural effusions. Mild bibasilar airspace disease. No acute bone abnormality. IMPRESSION: Small bilateral pleural effusions and mild bibasilar airspace disease. Electronically signed by: Niranjan Lovelace MD (08/30/2018 12:34 PM) [id number]
[2018-08-30 12:38] LABS: BACTERIA,URINE MANY /HPF (0-FEW); RBC,URINE 0 /HPF (0-2); WBC,URINE TNTC /HPF (0-4)
--- NOTE | 2018-08-30 12:53 | RAD ---
CT HEAD WO CONTRAST History: Slurred speech, weakness Comparison: October 27, [address] exam and October 28, 2015 MRI brain exam Technique: Noncontrast CT imaging was performed of the head. Exposure: One or more of the following individualized dose reduction techniques were utilized for this examination: 1. Automated exposure control 2. Adjustment of the mA and/or kV according to patient size 3. Use of iterative reconstruction technique. Findings: There is no evidence of acute intracranial hemorrhage. There are some small foci of low density near the right parietal cortical surface, previous infarcts in this region on MRI brain in 2016. There is no midline shift or intra-axial mass effect. Ventricular size is within normal limits. Visualized paranasal sinuses and mastoid air cells are aerated. There is atherosclerotic calcification carotid siphons bilaterally. Impression: 1. There is no evidence of acute intracranial hemorrhage. There are some small foci of low density on the right in the parietal region corresponding with site of previous infarcts MRI brain and 2016. If there is concern for more recent or evolving ischemia, follow-up CT or MRI may be beneficial. Electronically signed by: Nelson Jimenez MD (08/30/2018 12:50 PM) [facility]
[2018-08-30 13:15] LABS: % LYMPHS 9 % (24-48); % MONOS 4 % (0-10); % SEGS 87 % (35-66); PLT ESTIMATE ADEQUATE (ADEQUATE)
[2018-08-30] MEDS ORDERED: cefTRIAXone IV Push 1 GM VIAL. IVP ONE (13:30)
[2018-08-30] MEDS ORDERED: DOXYCYCLINE HYCLATE 100 MG in IV DEXTROSE 5% 100ML 100 ML IV ONE (13:30)
[2018-08-30 13:40] LABS: PROTHROMBIN TIME PATIENT 15.6 SEC (11.7-14.0)
[2018-08-30 13:43] LABS: CALCIUM 9.7 mg/dL (8.5-10.1); CREATININE 1.3 mg/dL (0.6-1.0); GFR 38.7; POTASSIUM 4.7 mmol/L (3.5-5.1)
[2018-08-30 13:48] LABS: ALBUMIN 3.4 g/dL (3.4-5.0); ALBUMIN/GLOBULIN RATIO 0.9 (1.0-1.7); TOTAL BILIRUBIN 0.5 mg/dL (0.2-1.0)
[2018-08-30] MEDS ORDERED: IV NORMAL SALINE 1000ML BAG 1,000 ML IV SCH (14:10)
--- NOTE | 2018-08-30 14:33 | EKG ---
[facility] [address] [place] [address] Test Date: 2018-08-30 Test Time: 13:38:07 Pat Name: JEFF NGUYỄN Department: Room: 2 Gender: F Rehab Technician: : [id number] Requested By: DAVID RICHARDSON Order Number: [id number] Reading MD: Jose Nguyen MD Measurements Intervals [place] Rate: 79 P: 37 AK: 170 QRS: -25 QRSD: 66 T: 24 QT: 382 QTc: 439 Interpretive Statements SINUS RHYTHM PVC'S PRIOR ANTEROSEPTAL INFARCT Electronically Signed On 09-03-2018 14:58:45 CDT by Jose Nguyen MD
[2018-08-30 14:51] LABS: INFLUENZA A PATIENT NEGATIVE (NEGATIVE); INFLUENZA B PATIENT NEGATIVE (NEGATIVE)
--- NOTE | 2018-08-30 15:40 | NUR ---
Pt arrived from ER per wheelchair. Admitted to room 672.
[2018-08-30 16:12] VITALS: BP 139/67
--- NOTE | 2018-08-30 17:00 | NUR ---
Pt having occasional PVCs. Sometimes 1-2 every 6 sec. No VTach noted. Underlying rhythm is sinus. Spoke to Dr Valdes. He requested 12 EKG if one was not done. Rhythm is the same as reported in ER. 12 lead EKG done in ER so it was not repeated. Pt has seen Dr Corbin in office.
[2018-08-30] MEDS ORDERED: traMADol 50 MG TABLET PO PRN (17:45)
[2018-08-30] MEDS ORDERED: ANTI-COAG MONITOR BY PHARMACY. MC PRN (17:45)
[2018-08-30] MEDS: LOSARTAN POTASSIUM 50 MG TABLET. PO SCH (18:00)
[2018-08-30] MEDS: amLODIPine BESYLATE 5 MG TABLET PO SCH (18:00)
[2018-08-30 19:10] VITALS: BP 157/70
[2018-08-30] MEDS: METOPROLOL TART IMMED RELEASE 50 MG TABLET. PO SCH ×2 (20:41→21:08)
[2018-08-30] MEDS ORDERED: ATORVASTATIN CALCIUM 40 MG TABLET. PO SCH (21:00)
[2018-08-30] MEDS ORDERED: LATANOPROST 0.005% OPHTH SOLUTION 2.5ML BOTTLE. OU SCH (21:00)
[2018-08-30] MEDS: APIXABAN 2.5 MG TABLET. PO SCH (21:04)
[2018-08-30] MEDS: metFORMIN 500 MG TABLET PO SCH (21:14)
[2018-08-30 23:10] VITALS: BP 129/54
[2018-08-31 03:20] VITALS: BP 135/63
[2018-08-31 07:00] VITALS: BP 145/56
[2018-08-31] MEDS ORDERED: metFORMIN 500 MG TABLET PO SCH (08:00)
[2018-08-31] MEDS: metFORMIN 500 MG TABLET PO SCH (08:35)
[2018-08-31] MEDS: APIXABAN 2.5 MG TABLET. PO SCH (08:36)
[2018-08-31] MEDS: METOPROLOL TART IMMED RELEASE 50 MG TABLET. PO SCH (08:36)
[2018-08-31] MEDS: LOSARTAN POTASSIUM 50 MG TABLET. PO SCH (08:37)
[2018-08-31] MEDS: amLODIPine BESYLATE 5 MG TABLET PO SCH (08:37)
[2018-08-31] MEDS ORDERED: CEPH-264 PO ×2 (09:28→09:29)
[2018-08-31] MEDS ORDERED: CEPHALEXIN 250 MG CAPSULE. PO SCH (10:30)
--- NOTE | 2018-08-31 10:41 | HP ---
ADMIT DATE: 08/30/2018 ADMISSION HISTORY AND PHYSICAL COMBINED DISCHARGE SUMMARY CHIEF COMPLAINT: Generalized weakness. HISTORY OF PRESENT ILLNESS AND HOSPITAL COURSE: This patient is an 88-year-old female who was in the usual state of health 48 hours prior to admission, but began having increasing weakness, described some slurred speech and mild confusion. The patient denied chest pain or shortness of breath, but does have coronary artery disease and was worried that she may be having symptoms of heart-related syndrome. Therefore, she came to the Emergency Room. During the Emergency Room evaluation, she had negative troponins and symptoms had almost completely resolved. She was found to have leukocytosis on U/A and small bilateral pleural effusions. She underwent serial troponins evaluation and was started on IV antibiotics. On hospital day #1, the patient was tolerating diet and was completely asymptomatic. She did have some PVCs early in her hospital stay, but these resolved with hydration. EKG was normal sinus rhythm, without evidence of acute changes. PT and OT were consulted and pending the patient's physical status, plans for discharge to home with p.o. antibiotics were made. PAST MEDICAL HISTORY: The patient's past medical history is significant for previous CVA in 10/2015, previous stent placement with coronary artery disease, type 2 diabetes, hyperlipidemia, hypertension, osteoarthritis and vitamin D deficiency. FAMILY HISTORY: Noncontributory. SOCIAL HISTORY: The patient has never smoked. She does not use alcohol. She lives with her sister. She is . ALLERGIES: SHE EXHIBITS ALLERGIES TO ASPIRIN, CAUSING STOMACH UPSET AND MAHOGANY INHIBITORS CAUSE COUGH. PAST SURGICAL HISTORY: Significant for stent placement, appendectomy, hysterectomy, bilateral oophorectomy, cholecystectomy, cataract surgery, hip arthroplasty and right total knee. REVIEW OF SYSTEMS: The patient was in her usual state of health until 48 hours prior to admission, when she began having weakness and mild confusion. The patient denies cough, congestion, chest pain or shortness of breath. PHYSICAL EXAMINATION: GENERAL: This is a well-nourished, well-developed female, in no apparent distress. She is alert and oriented x 3. HEENT: Benign. NECK: Supple, without JVD or bruit. CARDIAC EXAMINATION: Regular rate and rhythm, without murmur. LUNGS: Clear. ABDOMEN: Soft and nontender, without masses. EXTREMITIES: With 2+ pulses, without significant edema. NEUROLOGICAL EXAMINATION: Show no unilateral findings. ASSESSMENT: 1. Urinary tract infection. 2. Metabolic encephalopathy. 3. Previous cerebrovascular accident. 4. Hypertension. 5. High cholesterol. 6. Type 2 diabetes, on metformin. 7. Coronary artery disease. PLAN: To proceed with IV hydration, p.o. antibiotics and discharge to home, pending physical therapy assessment and proceed with outpatient Cardiology evaluation for stress testing. TOÑO MICHELLE MD DR: JACKIE/saqib JOB#: [id number] / [id number]
[2018-08-31 11:00] VITALS: BP 137/67
--- NOTE | 2018-08-31 12:51 | NUR ---
pt was discharged home with self care. gave her a script for Keflex 500mg PO BID. wheeled her down to the visitors entrance and her family took her home. Jakob Luna RN
== END 2018-08-31 12:52 | disposition home or self-care (01) | DRG 689 ==
LOC: ER 11:10 → 6 SOUTH 14:00
PROVIDERS: ADMIT Family Medicine; ATTEND Family Medicine
DX: N39.0 Urinary tract infection, site not specified (principal); G93.41 Metabolic encephalopathy; E78.00 Pure hypercholesterolemia, unspecified; E11.9 Type 2 diabetes mellitus without complications; I10 Essential (primary) hypertension; I25.2 Old myocardial infarction; Z96.649 Presence of unspecified artificial hip joint; Z96.659 Presence of unspecified artificial knee joint; I25.10 Atherosclerotic heart disease of native coronary artery without angina pectoris; M19.90 Unspecified osteoarthritis, unspecified site; E55.9 Vitamin D deficiency, unspecified; E78.5 Hyperlipidemia, unspecified; I49.3 Ventricular premature depolarization; K59.00 Constipation, unspecified; Z86.73 Personal history of transient ischemic attack (TIA), and cerebral infarction without residual deficits; Z90.49 Acquired absence of other specified parts of digestive tract; Z95.5 Presence of coronary angioplasty implant and graft; Z88.6 Allergy status to analgesic agent; Z88.8 Allergy status to other drugs, medicaments and biological substances; Z90.710 Acquired absence of both cervix and uterus; Z79.84 Long term (current) use of oral hypoglycemic drugs; Z87.440 Personal history of urinary (tract) infections
CPT/HCPCS: 36415; 70450; 71045; 80053; 81001; 82962; 83605; 84484; 85007; 85025; 85610; 87040; 87086; 87186; 87804; 93005; 96361; 96365; 96375; J0696; J3490; J7030; J7040; 99285-25

== ENCOUNTER → 2018-11-26 | Outpatient (CLI) | payer MEDICARE, BC ==
[~2018-11-26] MED LIST changes: +CEPH-264 PO
--- NOTE | 2018-11-26 12:24 | CARD ---
MR#: [id number] Date of Study: 11/26/2018 Ordering Physician: KARMA LANE, Referring Physician: KARMA LANE, Tech: Mikayla Pizarro [facility] APPROVED REPORT EXAM: Two-dimensional and M-mode echocardiogram with Doppler and color Doppler. Other Information Quality : Technically LimitedHR: 63bpm Rhythm : NSRTechnically limited study due to body habitus. INDICATION MR 2D DIMENSIONS RVDd3.3 (2.9-3.5cm)Left Atrium(2D)3.7 (1.6-4.0cm) IVSd1.4 (0.7-1.1cm)Aortic Root(2D)2.8 (2.0-3.7cm) LVDd3.6 (3.9-5.9cm)LVOT Diameter1.8 (1.8-2.4cm) PWd1.1 (0.7-1.1cm)LVDs1.9 (2.5-4.0cm) FS (%) 47.4 %SV43.0 ml Aortic Valve AoV Peak Chuck.126.9cm/sAoV VTI27.5cm AO Peak GR.6.4mmHgLVOT Peak Chuck.100.2cm/s AO Mean GR.3mmHgAVA (VMAX)1.91cm2 SOFYA (VTI)1.90cm2 Mitral Valve MV E Yiudsaqu225.9cm/sMV E Peak Gr.9mmHg MV DECEL RTTR190ccOF A Cfgjbjaw95.0cm/s MV E Mean Gr.2mmHgE/A Ratio2.0 Pulmonary Valve PV Peak Auyikauf02.8cm/s Tricuspid Valve TR P. Hkmewqac670pi/sRAP CGPLYKXH3tjRu TR Peak Gr.94ytSnBVJC99wbTy LEFT VENTRICLE The left ventricle is normal size. There is mild concentric left ventricular hypertrophy. The left ve ntricular systolic function is normal and the ejection fraction is within normal range. The Ejection Fraction is 55-60%. There is normal LV segmental wall motion. Transmitral Doppler flow pattern is Gra de II-pseudonormal filling dynamics. RIGHT VENTRICLE The right ventricle is normal size. There is normal right ventricular wall thickness. The right ventr icular systolic function is normal. ATRIA The left atrium size is normal. The right atrium size is normal. The interatrial septum is intact wit h no evidence for an atrial septal defect or patent foramen ovale as noted on 2-D or Doppler imaging. AORTIC VALVE The aortic valve is not well visualized. The aortic valve is probably trileaflet. Doppler and Color F low revealed trace aortic regurgitation. There is no significant aortic valvular stenosis. MITRAL VALVE Mitral annular calcification is moderate. There is no evidence of mitral valve prolapse. There is no mitral valve stenosis. Doppler and Color-flow revealed mild to moderate mitral regurgitation. TRICUSPID VALVE The tricuspid valve is normal in structure and function. Doppler and Color Flow revealed mild tricusp id regurgitation. The PA pressure was estimated at 46 mmHg. There is no tricuspid valve prolapse or v egetation. There is no tricuspid valve stenosis. PULMONIC VALVE The pulmonic valve is not well visualized. GREAT VESSELS The aortic root is normal in size. The ascending aorta is normal in size. The IVC is normal in size a nd collapses >50% with inspiration. PERICARDIAL EFFUSION There is no evidence of significant pericardial effusion. Critical Notification Critical Value: No <Conclusion> The left ventricle is normal size. The left ventricular systolic function is normal and the ejection fraction is within normal range. The Ejection Fraction is 55-60%. There is mild concentric left ventricular hypertrophy. There is no significant aortic valvular stenosis. Doppler and Color Flow revealed trace aortic regurgitation. Doppler and Color-flow revealed mild to moderate mitral regurgitation. Doppler and Color Flow revealed mild tricuspid regurgitation. The PA pressure was estimated at 46 mmHg. Signed by : Karma Lane MD Electronically Approved : 11/26/2018 12:23:14
== END | disposition home or self-care (01) ==
LOC: ECHO 10:59
PROVIDERS: ATTEND Internal Medicine Cardiovascular Disease
DX: I08.3 Combined rheumatic disorders of mitral, aortic and tricuspid valves (principal); I25.10 Atherosclerotic heart disease of native coronary artery without angina pectoris
CPT/HCPCS: 93306

== ENCOUNTER → 2018-12-12 | Outpatient (CLI) | payer MEDICARE, BC ==
--- NOTE | 2018-12-12 09:40 | RAD ---
DATE: 12/12/2018. EXAM: MAMMO MICHELLE SCREENING BILATERAL HISTORY: Routine screening. COMPARISON: Previous mammogram from 2018 and 2017. This study was interpreted with the benefit of Computerized Aided Detection (CAD). FINDINGS: Breast Density: SCATTERED The breast parenchyma shows scattered fibroglandular densities. Breast parenchyma level B. The skin and nipples are within normal limits. No suspicious calcifications, spiculated mass or area of architectural distortion. Stable bilateral asymmetries. IMPRESSION: No mammographic evidence of malignancy. Stable mammogram. BI-RADS CATEGORY: 2 BENIGN FINDING(S) RECOMMENDED FOLLOW-UP: 12M 12 MONTH FOLLOW-UP PQRS compliance statement: Patient information was entered into a reminder system with a target due date for the next mammogram. Mammography is a sensitive method for finding small breast cancers, but it does not detect them all and is not a substitute for careful clinical examination. A negative mammogram does not negate a clinically suspicious finding and should not result in delay in biopsying a clinically suspicious abnormality. "Our facility is accredited by the [employer] Mammography Program."
== END | disposition home or self-care (01) ==
LOC: MAMMO 08:07
PROVIDERS: ATTEND Family Medicine
DX: Z12.31 Encounter for screening mammogram for malignant neoplasm of breast (principal); N64.89 Other specified disorders of breast
CPT/HCPCS: 77063; 77067

== ENCOUNTER → 2019-03-12 | Day surgery (SDC) | payer MEDICARE, BC ==
[~2019-03-12] MED LIST changes: +FERR325T14 PO; +HYDR-2761 PO; +HYDROmorphone 2 MG/ML VIAL IV PRN; +IV RINGERS,LACTATED 1000ML 1,000 ML IV SCH; +LIDOCAINE 1% PF 2 ML VIAL. ID PRN; +LIDOCAINE 2% PF 5 ML VIAL. ONE; +MORPHINE SULFATE 2 MG/ML VIAL. IV PRN; +ONDANSETRON PF 4 MG/2 ML VIAL. IV PRN; +PROCHLORPERAZINE 10 MG/2 ML VIAL. IV PRN; +PROPOFOL 40 ML IV ONE; +fentaNYL PF VIAL 100 MCG/2 ML VIAL IV PRN
[2019-03-12 09:55] VITALS: BP 139/72
--- NOTE | 2019-03-14 14:07 | PATHOLOGY ---
[facility] Accession Number: [id number] . 01 Material submitted: . splenic flexure - SPLENIC FLEXURE BX MASS . 01 Clinical history: . Splenic flexure mass . 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 (SEE COMMENT) . (CLW:shin; 03/14/2019) S 03/14/2019 0853 Local . 02 Comment: A properly controlled immunohistochemical stain is performed. . AE1/AE3 (block A1): Highlights the invasive tumor. . The case is co-reviewed with Dr. Thee Lee. The case is discussed with Nicole, nurse with Dr. Daily, on 03/14/2019 at 1:30 PM. . (CLW:[facility]; 03/14/2019) . 02 Electronically signed: . Barb Badillo MD, Pathologist NPI- [id number] . 01 Gross description: . The specimen is received in formalin, labeled "Hope, Rosanne, splenic flexure BX mass", are few irregular fragments of cordova soft tissue measuring 0.5 x 0.5 x 0.2 cm in aggregate. Entirely submitted in A1. ([facility]; 03/12/2019) [facility] 03/12/2019 2110 Local . 02 Pathologist provided ICD-10: C18.5 . 02 CPT . 938351, P79220 Specimen Comment: A courtesy copy of this report has been sent to Specimen Comment: [phone], . Specimen Comment: Report sent to / DR DAILY Performed at: [address], [place], [place] [id number] MD Sanchez Starks MD Phone: [phone] Performed at: [address] [id number] MD Foster Amaro MD Phone: [phone]
== END ==
LOC: ENDOS 07:57
PROVIDERS: ATTEND Internal Medicine Gastroenterology
DX: D50.9 Iron deficiency anemia, unspecified (principal); C18.5 Malignant neoplasm of splenic flexure; K29.50 Unspecified chronic gastritis without bleeding; K64.0 First degree hemorrhoids; K21.9 Gastro-esophageal reflux disease without esophagitis; K26.9 Duodenal ulcer, unspecified as acute or chronic, without hemorrhage or perforation; Z86.73 Personal history of transient ischemic attack (TIA), and cerebral infarction without residual deficits; G43.909 Migraine, unspecified, not intractable, without status migrainosus; I10 Essential (primary) hypertension; E78.00 Pure hypercholesterolemia, unspecified; I25.2 Old myocardial infarction; E11.9 Type 2 diabetes mellitus without complications; H40.9 Unspecified glaucoma; I25.10 Atherosclerotic heart disease of native coronary artery without angina pectoris; Z95.5 Presence of coronary angioplasty implant and graft; Z90.49 Acquired absence of other specified parts of digestive tract; Z87.39 Personal history of other diseases of the musculoskeletal system and connective tissue; Z96.642 Presence of left artificial hip joint; Z98.42 Cataract extraction status, left eye; Z98.41 Cataract extraction status, right eye; Z90.710 Acquired absence of both cervix and uterus; Z90.721 Acquired absence of ovaries, unilateral; Z98.890 Other specified postprocedural states; Z79.84 Long term (current) use of oral hypoglycemic drugs; Z72.89 Other problems related to lifestyle; Z96.1 Presence of intraocular lens
CPT/HCPCS: 43235; 45380; 45381; 88305; 88342; J2001; J2704

== ENCOUNTER → 2019-03-14 | Outpatient (CLI) | payer MEDICARE, BC ==
[2019-03-12 09:55] VITALS: BP 139/72
[~2019-03-14] MED LIST changes: +CONTRAST GIVEN. MC PRN; -HYDROmorphone 2 MG/ML VIAL IV PRN; +IOHEXOL 240 MG/ML 50ML VIAL. PO ONE; +IOHEXOL 300 MG/ML 100ML VIAL. IV ONE; -IV RINGERS,LACTATED 1000ML 1,000 ML IV SCH; -LIDOCAINE 1% PF 2 ML VIAL. ID PRN; -LIDOCAINE 2% PF 5 ML VIAL. ONE; -MORPHINE SULFATE 2 MG/ML VIAL. IV PRN; -ONDANSETRON PF 4 MG/2 ML VIAL. IV PRN; -PROCHLORPERAZINE 10 MG/2 ML VIAL. IV PRN; -PROPOFOL 40 ML IV ONE; -fentaNYL PF VIAL 100 MCG/2 ML VIAL IV PRN
[2019-03-14 11:26] LABS: CREATININE 1.2 mg/dL (0.6-1.0); GFR 42.5
--- NOTE | 2019-03-14 12:59 | RAD ---
CT of the abdomen and pelvis with oral and IV contrast and without comparison for splenic flexure mass. TECHNIQUE: Contiguous helical 2 mm axial images are obtained from the apex of diaphragm to the pelvic floor, following ministration of IV contrast. Sagittal and coronal reformations are evaluated. FINDINGS: There is a calcified granuloma in the left lung base. Lung bases are otherwise clear. Heart size is within normal limits. Changes of antecedent granulomatous disease are seen in the spleen and liver as well. No suspicious hepatic masses. Gallbladder is only partially fluid distended but is grossly unremarkable. The pancreas, bilateral adrenal glands, and bilateral kidneys are grossly unremarkable. At the level of the splenic flexure of the colon, there is a large inflammatory circumferential colonic mass which results in partial obstruction of the proximal colon. This mass is intimately related to and at least partially encased by a a 5.3 cm complex air and fluid collection, concerning for a pericolonic abscess or contained colonic perforation. There is large amount of fat stranding in the adjacent pericolonic tissues. No suspicious retroperitoneal or mesenteric adenopathy is identified. No free fluid is identified. The urinary bladder is decompressed. No small bowel abnormalities are seen. 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 The left total hip prosthesis is present. Extensive degenerative disc disease is present at multiple lumbar levels. IMPRESSION: 1. Inflammatory partially obstructive colonic mass at splenic flexure, invested with an at least partially encased by 5.3 cm complex air-fluid collection concerning for pericolic abscess or contained colonic perforation. This mass also results in partial bowel obstruction with distention of the proximal and transverse colon. 2. No CT evidence of metastatic disease. 3. 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 4. Other chronic changes as described. Electronically signed by: Joshua Levin MD (03/14/2019 12:56 PM) [facility]
== END | disposition home or self-care (01) ==
LOC: CT 11:07
PROVIDERS: ATTEND Internal Medicine Gastroenterology
DX: K56.600 Partial intestinal obstruction, unspecified as to cause (principal); I72.8 Aneurysm of other specified arteries; J84.10 Pulmonary fibrosis, unspecified; D71 Functional disorders of polymorphonuclear neutrophils; M51.36 Other intervertebral disc degeneration, lumbar region; K63.89 Other specified diseases of intestine
CPT/HCPCS: 36415; 74177; 82565; 84520; Q9966; Q9967

== ENCOUNTER → 2019-04-04 | Outpatient (CLI) | payer MEDICARE, BC ==
[2019-03-12 09:55] VITALS: BP 139/72
[~2019-04-04] MED LIST changes: -CONTRAST GIVEN. MC PRN; -IOHEXOL 240 MG/ML 50ML VIAL. PO ONE; -IOHEXOL 300 MG/ML 100ML VIAL. IV ONE; +MULT-650 PO
[2019-04-04 15:41] LABS: BASO % 0 % (0-3); EOS # 0.1 x10^3/uL (0.0-0.7); EOS % 1 % (0-3); HEMATOCRIT 29.2 % (36.0-47.0); HEMOGLOBIN 9.2 g/dL (12.0-15.5); LYMPH # 1.3 x10^3/uL (1.0-4.8); LYMPH % 11 % (24-48); MEAN CORPUSCULAR HEMOGLOBIN 24 pg (25-35); MEAN CORPUSCULAR HGB CONC 31 g/dL (31-37); MEAN CORPUSCULAR VOLUME 78 fL (79-100); MONO # 1.2 x10^3/uL (0.0-1.1); MONO % 11 % (0-9); NEUT # 8.9 x10^3/uL (1.8-7.7); NEUT % 77 % (31-73); PLATELET COUNT 233 x10^3/uL (140-400); RED BLOOD COUNT 3.76 x10^6/uL (3.50-5.40); RED CELL DISTRIBUTION WIDTH 16.5 % (11.5-14.5); WHITE BLOOD COUNT 11.6 x10^3/uL (4.0-11.0)
[2019-04-04 15:58] LABS: CALCIUM 9.2 mg/dL (8.5-10.1); CREATININE 1.2 mg/dL (0.6-1.0); GFR 42.5; POTASSIUM 4.5 mmol/L (3.5-5.1)
== END | disposition home or self-care (01) ==
LOC: SURGPAT 13:33
PROVIDERS: ATTEND Surgery
DX: Z01.818 Encounter for other preprocedural examination (principal); C18.5 Malignant neoplasm of splenic flexure; Z88.8 Allergy status to other drugs, medicaments and biological substances
CPT/HCPCS: 36415; 80048; 82040; 85025

== ENCOUNTER 2019-04-15 22:50 | Emergency (ER) | payer MEDICARE, BC ==
[~2019-04-15] VITALS: Ht 170.2 cm; Wt 71.7 kg
--- NOTE | 2019-04-16 00:07 | PHYS DOC ---
Past Medical History Past Medical History: Diabetes-Type II, High Cholesterol, Hypertension, ND, Stroke Past Surgical History: Appendectomy, Cholecystectomy, Hip Replacement, Hysterectomy, Knee Replacement Additional Past Surgical Histo: LEFT HIP,BILAT CATARACT Alcohol Use: None Drug Use: None Adult General Chief Complaint Chief Complaint: UPPER EXTREMITY SWELLING HPI HPI 88-year-old female presents to the emergency Department complaints of right forearm swelling. Patient states she's had surgery recently for colon cancer she's as well had four iron infusions most recently today. Patient states she developed redness and inflammation to her right forearm with pain this afternoon. Discussed with patient regarding concerns for infiltration of IV, she states there was no swelling at the time of discharge, no pain at the time of discharge from the hospital. She denies any systemic symptoms of fever, nausea, chills, chest pain, shortness breath, abdominal pain. All other ROS negative unless documented in HPI Review of Systems Review of Systems See Above Allergies Allergies Allergies Coded Allergies Type Severity Reaction Last Updated Verified MAHOGANY Inhibitors Allergy Intermediate 04/09/19 Yes Histamine H2 Inhibitors Allergy Intermediate Rash 04/09/19 Yes aspirin Adverse Reaction Intermediate GASTRIC IRRITATION 04/09/19 Yes Physical Exam Physical Exam See Above Constitutional: Well developed, well nourished, no acute distress, non-toxic appearance. [] HENT: Normocephalic, atraumatic, bilateral external ears normal, oropharynx moist, no oral exudates, nose normal. [] Eyes: PERRLA, EOMI, conjunctiva normal, no discharge. [] Cardiovascular:Heart rate regular rhythm, no murmur [] Lungs & Thorax: Bilateral breath sounds clear to auscultation [] Abdomen: Bowel sounds normal, soft, no tenderness, no masses, no pulsatile masses. [] Skin: warm, erythema appreciated to right forearm, swelling appreciated Back: No tenderness, no CVA tenderness. [] Extremities: tenderness appreciated to right forearm, edema present. [] Neurologic: Alert and oriented X 3, no focal deficits noted. [] Psychologic: Affect normal, judgement normal, mood normal. [] Current Patient Data Vital Signs Vital Signs Date Time Temp Pulse Resp B/P (MAP) Pulse Ox O2 Delivery O2 Flow Rate FiO2 04/15/19 23:52 97.6 87 18 153/70 (97) 100 Room Air 97.6 Lab Values Laboratory Tests Test 04/16/19 00:42 White Blood Count 12.9 x10^3/uL (4.0-11.0) H Red Blood Count 3.96 x10^6/uL (3.50-5.40) Hemoglobin 9.7 g/dL (12.0-15.5) L Hematocrit 30.8 % (36.0-47.0) L Mean Corpuscular Volume 78 fL (79-100) L Mean Corpuscular Hemoglobin 25 pg (25-35) Mean Corpuscular Hemoglobin Concent 31 g/dL (31-37) Red Cell Distribution Width 17.1 % (11.5-14.5) H Platelet Count 322 x10^3/uL (140-400) Neutrophils (%) (Auto) 73 % (31-73) Lymphocytes (%) (Auto) 12 % (24-48) L Monocytes (%) (Auto) 10 % (0-9) H Eosinophils (%) (Auto) 4 % (0-3) H Basophils (%) (Auto) 1 % (0-3) Neutrophils # (Auto) 9.3 x10^3/uL (1.8-7.7) H Lymphocytes # (Auto) 1.5 x10^3/uL (1.0-4.8) Monocytes # (Auto) 1.3 x10^3/uL (0.0-1.1) H Eosinophils # (Auto) 0.6 x10^3/uL (0.0-0.7) Basophils # (Auto) 0.1 x10^3/uL (0.0-0.2) Laboratory Tests 04/16/19 00:42 EKG EKG [] Radiology/Procedures Radiology/Procedures [facility] [address] [place] [address] IMAGING REPORT Signed PATIENT: JEFF NGUYỄN ACCOUNT: [id number] : 1930 LOCATION: ER AGE: 88 SEX: F EXAM STATUS: REG ER ORD. PHYSICIAN: STELLA BRYSON MD REASON: soft tissue swelling with erythema/cellulitis PROCEDURE: EXT NON VASC RIGHT Indication: Soft tissue swelling with erythema. TECHNIQUE: Limited ultrasound of the right forearm. COMPARISON: None FINDINGS: Mid to distal Cephalic vein demonstrates a hypoechoic filling defect without evidence of blood flow. Diffuse forearm soft tissue edema noted. Proximal Cephalic vein in the proximal forearm demonstrates evidence of blood flow. IMPRESSION: Thrombophlebitis involving mid and distal cephalic vein. Electronically signed by: Rachel Troy DO (04/16/2019 12:59 AM) [facility] DICTATED and SIGNED BY: RACHEL TROY DO DATE: 04/16/19 005 [] Course & Med Decision Making Course & Med Decision Making Pertinent Labs and Imaging studies reviewed. (See chart for details) []88-year-old female presents to the emergency Department complaints of right forearm swelling. Patient states she's had surgery recently for colon cancer she's as well had four iron infusions most recently today. Patient states she developed redness and inflammation to her right forearm with pain this afternoon. Discussed with patient regarding concerns for infiltration of IV, she states there was no swelling at the time of discharge, no pain at the time of discharge from the hospital. She denies any systemic symptoms of fever, nausea, chills, chest pain, shortness breath, abdominal pain. Dragon Disclaimer Dragon Disclaimer This electronic medical record was generated, in whole or in part, using a voice recognition dictation system. Departure Departure Impression: Primary Impression: Thrombophlebitis arm Disposition: 01 HOME, SELF-CARE Condition: STABLE Referrals: STEVEN CLAIRE MD (PCP) Patient Instructions: Phlebitis, Birp-cs-Aitu Additional Instructions: Recommend follow up with PCP 3 - 5 days Return to the ER with worsening symptoms, intractable pain, fever, altered mental status Tylenol/Motrin as needed for pain Take antibiotics as directed Evidence of thrombophlebitis in cephalic vein of right arm - need for blood thinning medications Warm compresses can be used for pain Scripts Sulfamethoxazole/Trimethoprim (BACTRIM DS TABLET) 1 Each Tablet 1 TAB PO BID for infection for 5 Days, #10 TAB Prov: STELLA BRYSON MD 04/16/19 STELLA BRYSON MD Apr 16, 2019 00:07
[2019-04-16 00:51] LABS: BASO # 0.1 x10^3/uL (0.0-0.2); BASO % 1 % (0-3); EOS # 0.6 x10^3/uL (0.0-0.7); EOS % 4 % (0-3); HEMATOCRIT 30.8 % (36.0-47.0); HEMOGLOBIN 9.7 g/dL (12.0-15.5); LYMPH # 1.5 x10^3/uL (1.0-4.8); LYMPH % 12 % (24-48); MEAN CORPUSCULAR HEMOGLOBIN 25 pg (25-35); MEAN CORPUSCULAR HGB CONC 31 g/dL (31-37); MEAN CORPUSCULAR VOLUME 78 fL (79-100); MONO # 1.3 x10^3/uL (0.0-1.1); MONO % 10 % (0-9); NEUT # 9.3 x10^3/uL (1.8-7.7); NEUT % 73 % (31-73); PLATELET COUNT 322 x10^3/uL (140-400); RED BLOOD COUNT 3.96 x10^6/uL (3.50-5.40); RED CELL DISTRIBUTION WIDTH 17.1 % (11.5-14.5); WHITE BLOOD COUNT 12.9 x10^3/uL (4.0-11.0)
--- NOTE | 2019-04-16 01:01 | RAD ---
Indication: Soft tissue swelling with erythema. TECHNIQUE: Limited ultrasound of the right forearm. COMPARISON: None FINDINGS: Mid to distal Cephalic vein demonstrates a hypoechoic filling defect without evidence of blood flow. Diffuse forearm soft tissue edema noted. Proximal Cephalic vein in the proximal forearm demonstrates evidence of blood flow. IMPRESSION: Thrombophlebitis involving mid and distal cephalic vein. Electronically signed by: Cj Troy DO (04/16/2019 12:59 AM) [facility]
[2019-04-16] MEDS ORDERED: SULF1TAB24 PO (01:13)
[2019-04-16] MEDS ORDERED: SMZ/TMP 800/160MG TABLET. PO ONE (01:30)
[2019-04-16 01:45] VITALS: BP 180/77
== END 2019-04-16 01:45 | disposition home or self-care (01) ==
LOC: ER 22:50
DX: I80.8 Phlebitis and thrombophlebitis of other sites (principal); E11.9 Type 2 diabetes mellitus without complications; E78.00 Pure hypercholesterolemia, unspecified; I10 Essential (primary) hypertension; I25.2 Old myocardial infarction; Z86.73 Personal history of transient ischemic attack (TIA), and cerebral infarction without residual deficits; Z88.6 Allergy status to analgesic agent; Z88.8 Allergy status to other drugs, medicaments and biological substances
CPT/HCPCS: 36415; 76881; 85025; 99285

== ENCOUNTER → 2019-04-22 | Outpatient (CLI) | payer MEDICARE, BC ==
[2019-04-16 01:45] VITALS: BP 180/77
[~2019-04-22] MED LIST changes: +CONTRAST GIVEN. MC PRN; +IOHEXOL 300 MG/ML 100ML VIAL. IV ONE; +SULF1TAB24 PO
--- NOTE | 2019-04-22 17:23 | RAD ---
Study: CT chest with contrast INDICATION: Staging for colon cancer. COMPARISON: Correlation is made to the CT abdomen/pelvis from 03/14/2019. TECHNIQUE: Helical CT imaging of the chest performed after the intravenous administration of 75 cc Omnipaque 300 contrast. FINDINGS: Vasculature: Extensive calcified and noncalcified atheromatous plaque throughout the thoracic and visualized abdominal aorta. No aneurysmal dilatation. The great vessel origins are patent. Calcific plaque at the celiac, SMA and renal artery origins with areas of at least mild stenosis though not well evaluated by technique. Extensive calcific coronary artery disease. No main pulmonary artery dilatation. Though not well evaluated by technique, no central pulmonary embolism is seen. Mediastinum/ananya: No pericardial effusion. Unremarkable gastroesophageal junction. Scattered calcified granulomas. No suspicious noncalcified lymph node. Lungs: Small bilateral pleural effusions, slightly larger on the left. No suspicious pulmonary nodule. Left lower lobe granuloma. The adequately assessed airways are patent. Neck/axilla/chest wall: Unremarkable thyroid. No axillary adenopathy. Upper abdomen: Scattered hepatic and splenic granulomas. Rounded low-attenuation focus at the sheree hepatis, image 56 series 3, was present on the prior and appears in continuity with the common bile duct. It is uncertain if this represents an ectatic duct or irregularly configured gallbladder. Correlate for a history of prior cholecystectomy. No newly seen hepatic parenchymal abnormality. No newly seen abnormality of the kidneys or adrenal glands. Unchanged pancreas. Newly seen changes along the upper abdominal midline likely relating to interval surgery. The previously seen abnormal loop of colon at the left upper quadrant is now likely surgically absent. Fatty stranding in this region is likely postsurgical. 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 Multifocal degenerative changes. No vertebral body height loss. IMPRESSION: 1. No findings suggestive of metastatic disease above the level of the diaphragm. 2. Findings in keeping with interval surgical changes within the abdomen. No complicating features identified noting only partial visualization of the upper abdomen. 3. Small bilateral pleural effusions, slightly larger on the left. 4. Additional chronic findings as detailed in the body of the report. Electronically signed by: MARIE SUMMERS MD (04/22/2019 5:20 PM) [facility]
== END | disposition home or self-care (01) ==
LOC: CT 11:59
PROVIDERS: ATTEND Internal Medicine Hematology & Oncology
DX: C18.5 Malignant neoplasm of splenic flexure (principal); J90 Pleural effusion, not elsewhere classified; I70.0 Atherosclerosis of aorta; I25.10 Atherosclerotic heart disease of native coronary artery without angina pectoris; J84.10 Pulmonary fibrosis, unspecified; Z90.49 Acquired absence of other specified parts of digestive tract; Z88.8 Allergy status to other drugs, medicaments and biological substances
CPT/HCPCS: 71260; Q9967

== ENCOUNTER → 2019-12-02 | Outpatient (CLI) | payer MEDICARE ==
[~2019-12-02] MED LIST changes: -CONTRAST GIVEN. MC PRN; -IOHEXOL 300 MG/ML 100ML VIAL. IV ONE; +WARF1TAB2 PO; -WARF1TAB74 PO
== END | disposition home or self-care (01) ==
LOC: LAB 13:10
PROVIDERS: ATTEND Internal Medicine Gastroenterology
DX: Z01.818 Encounter for other preprocedural examination (principal); Z11.59 Encounter for screening for other viral diseases
CPT/HCPCS: U0003-CS

== ENCOUNTER → 2019-12-05 | Day surgery (SDC) | payer BC, MEDICARE ==
[~2019-12-05] MED LIST changes: +IV RINGERS,LACTATED 1000ML 1,000 ML IV SCH; +LIDOCAINE 2% PF 5 ML VIAL. ONE; +PROPOFOL 10 MG/ML (20ML) VIAL. IV ONE; +ePHEDrine PF IN SALINE 50 MG/10 ML SYRINGE. IV ONE
[2019-12-05 10:10] VITALS: BP 130/63
--- NOTE | 2019-12-08 21:04 | PATHOLOGY ---
[facility] Accession Number: [id number] . 01 Material submitted: . colon - ASCENDING COLON POLYP. Modifiers: ascending . 01 Clinical history: . History of colon cancer; constipation . 02 Diagnosis: Colon biopsy, ascending colon polyp: - Tubular adenoma. LBQ 12/08/2019 1704 Local . 02 Comment: There is no evidence of high grade dysplasia or malignancy. (JPM/db; 12/08/2019) . 02 Electronically signed: . Foster Amaro MD, Pathologist NPI- [id number] . 01 Gross description: . The specimen is received in formalin, labeled "Rosanne Vasquez, ascending colon polyp". Received is a segment of pale cordova soft tissue measuring 0.4 cm in maximum dimensions. The specimen is submitted entirely in cassette A1. ([facility]; 12/05/2019) QA/[facility] 12/05/2019 1735 Local . 02 Pathologist provided ICD-10: D12.2 . 02 CPT . 445438 Specimen Comment: A courtesy copy of this report has been sent to [phone], [phone] Specimen Comment: [id number] Specimen Comment: Report sent to / DR CLAIRE Performed at: 01 [facility] [address], [place], [place] [id number] MD Sanchez Starks MD Phone: [phone] Performed at: 02 [facility] [address] [place], [place] [id number] MD Foster Amaro MD Phone: [phone]
== END ==
LOC: ENDOS 08:25
PROVIDERS: ATTEND Internal Medicine Gastroenterology
DX: K59.00 Constipation, unspecified (principal); D12.2 Benign neoplasm of ascending colon; K21.9 Gastro-esophageal reflux disease without esophagitis; E11.9 Type 2 diabetes mellitus without complications; E78.00 Pure hypercholesterolemia, unspecified; F15.90 Other stimulant use, unspecified, uncomplicated; Z87.39 Personal history of other diseases of the musculoskeletal system and connective tissue; Z86.73 Personal history of transient ischemic attack (TIA), and cerebral infarction without residual deficits; Z85.038 Personal history of other malignant neoplasm of large intestine; Z90.49 Acquired absence of other specified parts of digestive tract; Z90.710 Acquired absence of both cervix and uterus; Z98.890 Other specified postprocedural states; Z79.84 Long term (current) use of oral hypoglycemic drugs
CPT/HCPCS: 45380; J2704

== ENCOUNTER → 2019-12-23 | Outpatient (CLI) | payer MEDICARE ==
[2019-12-05 10:10] VITALS: BP 130/63
[~2019-12-23] MED LIST changes: +CONTRAST GIVEN. MC PRN; +IOHEXOL 240 MG/ML 50ML VIAL. PO ONE; +IOHEXOL 300 MG/ML 100ML VIAL. IV ONE; -IV RINGERS,LACTATED 1000ML 1,000 ML IV SCH; -LIDOCAINE 2% PF 5 ML VIAL. ONE; -PROPOFOL 10 MG/ML (20ML) VIAL. IV ONE; -ePHEDrine PF IN SALINE 50 MG/10 ML SYRINGE. IV ONE
--- NOTE | 2019-12-24 09:26 | KCIC ---
EXAM: CT Abdomen and Pelvis with IV contrast INDICATION: Reason: ABDOMINAL PAIN S/P COLON RESECTION 2019 / Spl. Instructions: 100mL Omni 300 / History: Colon CA, cholecystectomy, appendectomy, hysterectomy. TECHNIQUE: Multi-detector row CT images were acquired from the lung bases through the abdomen and pelvis with the use of IV contrast. Sagittal and coronal images were acquired from the transaxial data. All CT scans performed at this facility utilize dose optimization techniques as appropriate to the exam, including the following: Automated exposure control and adjustment of the mA and/or KV according to patient size (this includes techniques or standardized protocols for targeted exams where dose is indication/reason for exam). IV CONTRAST: Administered ORAL CONTRAST: Administered COMPARISON: Contrast-enhanced abdomen pelvis CT 03/14/2019 FINDINGS: LOWER CHEST: Unremarkable LIVER: Unremarkable BILIARY SYSTEM: Gallbladder is surgically absent. Postcholecystectomy biliary distention is present with the common bile duct measuring 7 mm in the pancreatic head. There is a cystic structure at the sheree hepatis that could represent a distended cystic duct stump measuring 3.6 cm in length. PANCREAS: Unremarkable SPLEEN: Scattered splenic calcifications. Otherwise unremarkable with no evidence of splenomegaly. Loss of tissue planes between the inferior spleen and the new mesenteric masses noted. ADRENALS: Unremarkable KIDNEYS & URETERS: Unremarkable BLADDER: Unremarkable REPRODUCTIVE ORGANS: Hysterectomy. Ovaries not seen. GASTROINTESTINAL: The patient has undergone an interval left hemicolectomy with no evidence of bowel obstruction or perforation. Appendix is not seen and may be surgically absent. MESENTERY/PERITONEUM/RETROPERITONEUM: In the left upper quadrant mesentery between the spleen and the pancreatic tail is a low density lobulated 4.9 x 4.6 x 5.5 cm mass that is new from the previous CT scan. There is some loss of tissue planes between the splenic hilum and this mass, and between this mass and the pancreatic tail. In addition, slightly more anteromedially is an adjacent thick-walled hypovascular 1.8 cm round mass that is also new. Some ovoid fluid density in the right lower pelvis is also present, abutting the peritoneum and could represent tiny peritoneal inclusion cyst. VASCULAR: There is a 2 cm calcified splenic artery aneurysm. Extensive calcifications in the abdominal aorta and its major branch vessels are present without aneurysmal dilation of the abdominal aorta which measures up to 1.8 cm. LYMPH NODES: No adenopathy OSSEOUS & SOFT TISSUES: Left total hip arthroplasty. Fat necrosis in the subcutaneous fat along the incision. IMPRESSION: Two masses in the left upper quadrant abdominal mesentery measuring approximately 5 and 2 cm respectively are in the vicinity of the patient's previous colonic malignancy (which has since been resected via left hemicolectomy). These masses are concern for possible tumor recurrence. Consider imaging guided core needle biopsy. Electronically signed by: Reji Rodriguez MD (12/24/2019 9:23 AM) [id number]
== END ==
LOC: KCIC CT 08:51
PROVIDERS: ATTEND Internal Medicine Gastroenterology
DX: R19.02 Left upper quadrant abdominal swelling, mass and lump (principal); Z90.49 Acquired absence of other specified parts of digestive tract; Z90.710 Acquired absence of both cervix and uterus; Z96.642 Presence of left artificial hip joint
CPT/HCPCS: 74177; 82565; Q9966; Q9967

== ENCOUNTER 2020-01-02 07:02 | Outpatient (CLI) | payer MEDICARE ==
[2020-01-02] VITALS (15 sets, daily range): BP systolic 105–151; BP diastolic 48–71
[~2020-01-02] VITALS: Ht 170.2 cm; Wt 75.7 kg
[~2020-01-02 07:02] MED LIST changes: -CONTRAST GIVEN. MC PRN; -IOHEXOL 240 MG/ML 50ML VIAL. PO ONE; -IOHEXOL 300 MG/ML 100ML VIAL. IV ONE
[2020-01-02 07:48] LABS: BASO # 0.1 x10^3/uL (0.0-0.2); BASO % 1 % (0-3); EOS # 0.1 x10^3/uL (0.0-0.7); EOS % 1 % (0-3); HEMATOCRIT 40.7 % (36.0-47.0); HEMOGLOBIN 13.7 g/dL (12.0-15.5); LYMPH # 1.1 x10^3/uL (1.0-4.8); LYMPH % 13 % (24-48); MEAN CORPUSCULAR HEMOGLOBIN 31 pg (25-35); MEAN CORPUSCULAR HGB CONC 34 g/dL (31-37); MEAN CORPUSCULAR VOLUME 93 fL (79-100); MONO # 0.8 x10^3/uL (0.0-1.1); MONO % 10 % (0-9); NEUT % 75 % (31-73); PLATELET COUNT 180 x10^3/uL (140-400); RED BLOOD COUNT 4.37 x10^6/uL (3.50-5.40); RED CELL DISTRIBUTION WIDTH 12.8 % (11.5-14.5)
[2020-01-02 07:58] LABS: PROTHROMBIN TIME PATIENT 13.6 SEC (11.7-14.0)
[2020-01-02] MEDS ORDERED: LIDOCAINE WITH 8.4% SOD BICARB 3 ML DISP.SYRIN. ONE (08:21)
[2020-01-02] MEDS ORDERED: fentaNYL PF VIAL 100 MCG/2 ML VIAL ONE (08:27)
[2020-01-02] MEDS ORDERED: MIDAZOLAM HCL/PF 2 MG/2 ML VIAL. ONE (08:27)
[2020-01-02] MEDS ORDERED: fentaNYL PF VIAL 100 MCG/2 ML VIAL IV ONE (08:45)
[2020-01-02] MEDS ORDERED: LIDOCAINE WITH 8.4% SOD BICARB 3 ML DISP.SYRIN. IJ ONE (08:45)
[2020-01-02] MEDS ORDERED: MIDAZOLAM HCL/PF 2 MG/2 ML VIAL. IV ONE (08:45)
--- NOTE | 2020-01-02 09:17 | PDOC ---
MODERATE SEDATION ASSESSMENT RISKS/ALTERNATIVES Risks/Alternatives Risks and alternatives of this type of sedation and procedure discussed with: RISK/ALTERNATIVES: Patient H & P ON CHART H & P H & P on chart and reviewed for co-morbid conditions and appropriate labs. H&P ON CHART: Yes STATUS PREG STATUS ASSESSED: Yes MEDS/ALLERGIES REVIEWED Meds/Allergies Reviewed Medications and Allergies including time and route of recently administered narcotics and sedatives. MEDS/ALLERGIES REVIEWED: Yes ASA RATING ASA RATING: II AIRWAY ASSESSMENT Airway Assessment Airway patency, oral function limitations, presence of caps, crowns, dentures, partials, and ability to extend neck assessed. AIRWAY ASSESSMENT: Yes MALLAMPATI SCORE MALLAMPATI SCORE: II PRE-SEDATION ASSESSMENT PRE-SEDATION ASSESSMENT: Yes SHANE GARCIA MD Jan 02, 2020 09:17
--- NOTE | 2020-01-02 09:19 | PDOC ---
BRIEF OPERATIVE NOTE Pre-Op Diagnosis Mesenteric mass(es) Post-Op Diagnosis same Procedure Performed CT bx of gastrosplenic mass Surgeon Ollie Anesthesia Type: Conscious Sedation Specimens Obtained 6 x 18g cores divided between formalin and RPMI Findings CT bx of mass in upper left quadrant Complications No immediate SHANE GARCIA MD Jan 02, 2020 09:19
--- NOTE | 2020-01-02 11:38 | NUR ---
Discharge Note: JEFF NGUYỄN Discharge instructions and discharge home medications reviewed with Patient and daughter; and a copy given. All questions have been answered and understanding verbalized. The following instructions and handouts were given: incision care and post moderate sedation. Discontinued lines and drains: Right hand IV site dc'd and tip intact. Patient discharged to home with daughter via personal vehicle.
--- NOTE | 2020-01-02 13:59 | RAD ---
Procedure: CT-guided biopsy of left upper quadrant mesenteric mass Clinical Indication: Adult female with left upper quadrant mesenteric masses x2 Sedation: Conscious sedation was administered with a total intraprocedural [id number] time of 20 minutes. The patient was monitored by a qualified independent observer throughout the time of sedation. Please refer to the medical record for exact doses of medications utilized to achieve moderate sedation. Antibiotics: None Sterility: The procedure was performed in its entirety using appropriate elements of sterile technique. Consent: The procedure was explained in its entirety to the patient or the patients designated nutrition representative by a member of the treatment team, including a discussion of the risks, benefits and commonly accepted alternatives to the procedure, as well as the expected consequences of no therapy whatsoever. Discussion of the risks included, but was not limited to, those that are most frequent and those that are rare but possibly severe or life-threatening, as well as the possibility of unforeseen complications. Technique and Findings: Following informed consent, the patient was prepped and draped in usual sterile fashion. Preliminary CT scan of the area of interest was performed. 1% lidocaine was used to achieve local anesthesia. A small dermatotomy was made. Under periodic CT surveillance, a 17-gauge needle guide was advanced towards the dominant lesion and 6 separate 18-gauge core biopsy specimens were obtained and divided between RPMI and formalin. The needle guide was then removed and hemostasis was achieved with manual compression. Complications: No immediate Impression: 1. CT-guided biopsy of left upper quadrant mesenteric mass as described. PQRS Compliance Statement: One or more of the following individualized dose reduction techniques were utilized for this examination: 1. Automated exposure control 2. Adjustment of the mA and/or kV according to patient size 3. Use of iterative reconstruction technique
== END 2020-01-02 11:30 | disposition home or self-care (01) ==
LOC: INTRAD 07:02
PROVIDERS: ATTEND Internal Medicine Gastroenterology
DX: R19.02 Left upper quadrant abdominal swelling, mass and lump (principal); Z88.8 Allergy status to other drugs, medicaments and biological substances; Z79.899 Other long term (current) drug therapy
CPT/HCPCS: 36415; 49180; 77012; 85025; 85610; 99152; J2250; J3010; J3490

== ENCOUNTER → 2020-01-16 | Outpatient (CLI) | payer MEDICARE ==
[2020-01-02 11:10] VITALS: BP 115/63
--- NOTE | 2020-01-16 15:09 | RAD ---
EXAM: CT Chest without IV contrast INDICATION: Reason: restage ca hx: colon ca / Spl. Instructions: / History: TECHNIQUE: Multi-detector row CT images were acquired from the thoracic inlet through the upper abdomen without the use of IV contrast. Sagittal and coronal images were acquired from the transaxial data. All CT scans performed at this facility utilize dose optimization techniques as appropriate to the exam, including the following: Automated exposure control and adjustment of the mA and/or KV according to patient size (this includes techniques or standardized protocols for targeted exams where dose is indication/reason for exam). COMPARISON: Abdomen and pelvis CT with IV contrast 12/23/2019, CT guided abdomen core needle biopsy of 01/02/2020 FINDINGS: The absence of IV contrast limits evaluation of soft tissue pathology. CARDIOVASCULAR: Coronary calcifications. Normal aortic caliber and heart size. Normal pulmonary artery size. MEDIASTINUM & ALIYA: Dense left hilar calcifications. No mediastinal or hilar mass or adenopathy. LUNGS: No pulmonary infiltrate, nodule, or other focal abnormality. PLEURAL SPACE: Small bilateral pleural effusions are new from both prior comparison studies. OSSEOUS & SOFT TISSUE: Unremarkable ABDOMEN: 5 cm abdominal mass at the splenic hilum recently targeted for biopsy is partially imaged on this examination. No free air, significant ascites or acute infarct or changes in the included upper abdomen from the current exam. Incidental splenic artery aneurysm and cystic ectasia of the cystic duct stump or hepatic cyst is redemonstrated. IMPRESSION: Small bilateral pleural effusions have developed and are nonspecific but otherwise no findings suspicious for thoracic metastatic disease on noncontrast chest CT. Electronically signed by: Reji Rodriguez MD (01/16/2020 3:06 PM) [facility]
== END | disposition home or self-care (01) ==
LOC: CT 08:44
PROVIDERS: ATTEND Internal Medicine Hematology & Oncology
DX: C18.9 Malignant neoplasm of colon, unspecified (principal); I72.8 Aneurysm of other specified arteries; J90 Pleural effusion, not elsewhere classified
CPT/HCPCS: 71250

== ENCOUNTER → 2020-01-22 | Outpatient (CLI) | payer MEDICARE ==
[2020-01-02 11:10] VITALS: BP 115/63
[2020-01-22 09:50] LABS: BASO # 0.1 x10^3/uL (0.0-0.2); BASO % 1 % (0-3); EOS % 1 % (0-3); HEMATOCRIT 40.3 % (36.0-47.0); HEMOGLOBIN 13.5 g/dL (12.0-15.5); LYMPH # 0.7 x10^3/uL (1.0-4.8); LYMPH % 7 % (24-48); MEAN CORPUSCULAR HEMOGLOBIN 32 pg (25-35); MEAN CORPUSCULAR HGB CONC 33 g/dL (31-37); MEAN CORPUSCULAR VOLUME 95 fL (79-100); MONO # 1.1 x10^3/uL (0.0-1.1); MONO % 11 % (0-9); NEUT # 8.2 x10^3/uL (1.8-7.7); NEUT % 81 % (31-73); PLATELET COUNT 194 x10^3/uL (140-400); RED BLOOD COUNT 4.27 x10^6/uL (3.50-5.40); RED CELL DISTRIBUTION WIDTH 14.1 % (11.5-14.5); WHITE BLOOD COUNT 10.2 x10^3/uL (4.0-11.0)
[2020-01-22 09:57] LABS: CREATININE 1.1 mg/dL (0.6-1.0); GFR 46.9; POTASSIUM 4.8 mmol/L (3.5-5.1)
[2020-01-22 10:02] LABS: ALBUMIN 3.2 g/dL (3.4-5.0); ALBUMIN/GLOBULIN RATIO 0.9 (1.0-1.7); TOTAL BILIRUBIN 0.4 mg/dL (0.2-1.0); TOTAL PROTEIN 6.7 g/dL (6.4-8.2)
== END | disposition home or self-care (01) ==
LOC: ONCLAB 09:34
PROVIDERS: ATTEND Internal Medicine Hematology & Oncology
DX: C18.9 Malignant neoplasm of colon, unspecified (principal)
CPT/HCPCS: 36415; 80053; 82378; 85025

== ENCOUNTER → 2020-01-29 | Outpatient (CLI) | payer MEDICARE ==
[2020-01-02 11:10] VITALS: BP 115/63
[~2020-01-29] MED LIST changes: +ONDA8TAB9 PO; +OXYC20TA PO
--- NOTE | 2020-01-29 14:59 | CARD ---
MR#: [id number] Date of Study: 01/29/2020 Ordering Physician: KARMA LANE, Referring Physician: KARMA LANE, Tech: Africa Lopes [place] APPROVED REPORT EXAM: Two-dimensional and M-mode echocardiogram with Doppler and color Doppler. Other Information Quality : Fair Rhythm : Atrial Fibrillation INDICATION Hypertension/HCVD Pre-Op Cardiac Disease: CAD 2D DIMENSIONS RVDd2.8 (2.9-3.5cm)Left Atrium(2D)3.9 (1.6-4.0cm) IVSd0.9 (0.7-1.1cm)Aortic Root(2D)2.4 (2.0-3.7cm) LVDd3.9 (3.9-5.9cm)LVOT Diameter1.9 (1.8-2.4cm) PWd0.8 (0.7-1.1cm)LVDs2.7 (2.5-4.0cm) FS (%) 29.3 %SV36.8 ml LVEF(%)56.8 (>50%) Aortic Valve AoV Peak Chuck.93.8cm/sAoV VTI17.6cm AO Peak GR.3.5mmHgLVOT Peak Chuck.81.1cm/s AO Mean GR.2mmHgAVA (VMAX)2.36cm2 SOFYA (VTI)2.40cm2 Tricuspid Valve TR P. Kcleyrzo142ae/sRAP [id number] TR Peak Gr.[id number] LEFT VENTRICLE The left ventricle is normal size. There is normal left ventricular wall thickness. The left ventricu lar systolic function is normal and the ejection fraction is within normal range. The Ejection Fracti on is 55-60%. There is normal LV segmental wall motion. RIGHT VENTRICLE The right ventricle is normal size. The right ventricular systolic function is normal. ATRIA The left atrium size is normal. The right atrium is mildly dilated. The interatrial septum is intact with no evidence for an atrial septal defect or patent foramen ovale as noted on 2-D or Doppler imagi ng. AORTIC VALVE The aortic valve is not well visualized but appears to be functioning normally by Doppler interrogati on. Doppler and Color Flow revealed no significant aortic regurgitation. There is no significant aort ic valvular stenosis. MITRAL VALVE The mitral valve is calcified but opens well. Mitral annular calcification is mild. There is no evide nce of mitral valve prolapse. There is no mitral valve stenosis. Doppler and Color-flow revealed mild to moderate mitral regurgitation. TRICUSPID VALVE The tricuspid valve is normal in structure and function. Doppler and Color Flow revealed mild tricusp id regurgitation. The PA pressure was estimated at 44 mmHg. There is no tricuspid valve stenosis. PULMONIC VALVE The pulmonary valve is normal in structure and function. Doppler and Color Flow revealed no pulmonic valvular regurgitation. There is no pulmonic valvular stenosis. GREAT VESSELS The aortic root is normal in size. The ascending aorta is normal in size. The IVC is dilated and gloria apses >50% with inspiration. PERICARDIAL EFFUSION There is no evidence of significant pericardial effusion. Critical Notification Critical Value: No <Conclusion> The left ventricle is normal size. The left ventricular systolic function is normal and the ejection fraction is within normal range. The Ejection Fraction is 55-60%. Doppler and Color Flow revealed no significant aortic regurgitation. There is no significant aortic valvular stenosis. The mitral valve is calcified but opens well. Doppler and Color-flow revealed mild to moderate mitral regurgitation. Doppler and Color Flow revealed mild tricuspid regurgitation. The PA pressure was estimated at 44 mmHg. Signed by : Karma Lane MD Electronically Approved : 01/29/2020 14:58:52
== END | disposition home or self-care (01) ==
LOC: ECHO 13:53
PROVIDERS: ATTEND Internal Medicine Cardiovascular Disease
DX: Z01.818 Encounter for other preprocedural examination (principal); I08.1 Rheumatic disorders of both mitral and tricuspid valves; I25.10 Atherosclerotic heart disease of native coronary artery without angina pectoris; I10 Essential (primary) hypertension
CPT/HCPCS: 93306

== ENCOUNTER 2020-02-03 09:51 | Inpatient (IN) | payer MEDICARE ==
[~2020-02-03] VITALS: Ht 170.2 cm; Wt 80.1 kg
[2020-02-03] VITALS (10 sets, daily range): BP systolic 114–156; BP diastolic 50–76
[~2020-02-03 09:51] MED LIST changes: +HYDROmorphone 2 MG/ML VIAL IV PRN; +LIDOCAINE 1% PF 2 ML VIAL. ID PRN; +MORPHINE SULFATE 2 MG/ML VIAL. IV PRN; +ONDANSETRON PF 4 MG/2 ML VIAL. IV PRN; +PROCHLORPERAZINE 10 MG/2 ML VIAL. IV PRN; +cefOXitin SODIUM IV Push 2 GM VIAL. IVP PRN; +fentaNYL PF VIAL 100 MCG/2 ML VIAL IV PRN
[2020-02-03] MEDS ORDERED: cefOXitin SODIUM IV Push 1 GM VIAL. IVP ONE (10:31)
[2020-02-03] MEDS ORDERED: ETOMIDATE 20 MG/10 ML VIAL. IV ONE (10:55)
[2020-02-03] MEDS ORDERED: LIDOCAINE 2% PF 5 ML VIAL. ONE (10:55)
[2020-02-03] MEDS ORDERED: ROCURONIUM 100 MG/10 ML VIAL. ONE (10:55)
[2020-02-03] MEDS ORDERED: DEXAMETHASONE SOD PHOS 4 MG/ML VIAL ONE ×2 (10:55→10:58)
[2020-02-03] MEDS ORDERED: fentaNYL PF VIAL 100 MCG/2 ML VIAL ONE (10:55)
[2020-02-03] MEDS ORDERED: ONDANSETRON PF 4 MG/2 ML VIAL. ONE (10:58)
[2020-02-03] MEDS ORDERED: PHENYLEPHRINE 10 MG/ML VIAL. ONE (10:59)
[2020-02-03] MEDS ORDERED: INSULIN LISPRO 100 UNIT/ML 3ML VIAL for OP,RR ONLY. SQ PRN (11:30)
[2020-02-03] MEDS: IV RINGERS,LACTATED 1000ML 1,000 ML IV SCH ×3 (11:32→17:50)
--- NOTE | 2020-02-03 13:05 | PDOC ---
SURGICAL PROGRESS NOTE DATE: 02/03/20 TIME: 13:01 Subjective 89 yo F with recurrent colon cancer in LUQ, intimately associated with spleen. Pt with pain in LUQ, felt to be secondary to this. Discussed at tumor board. D/w pt's supportive family in preop. R/R/B/A d/w pt and pt's family. Risks, including, but not limited to: bleeding, infection, damage to surrounding structures, risk of anesthesia, risk of open. She is at increased risk of complications secondary to advanced age and recent surgery. They appear to understand, their questions are answered and they elect to proceed. Office note H&P reviewed and unchanged. Vital Signs Vital Signs Date Time Temp Pulse Resp B/P (MAP) Pulse Ox O2 Delivery O2 Flow Rate FiO2 02/03/20 11:28 Room Air 02/03/20 11:27 97 117 96 97.0 02/03/20 11:26 20 132/78 Labs Laboratory Tests Test 02/03/20 10:30 02/03/20 11:16 SARS-CoV-2 Antigen (Rapid) Negative (NEGATIVE) Glucose (Fingerstick) 125 mg/dL (70-99) Laboratory Tests Test 02/03/20 10:30 02/03/20 11:16 SARS-CoV-2 Antigen (Rapid) Negative (NEGATIVE) Glucose (Fingerstick) 125 mg/dL (70-99) Justicifation of Admission Dx: Justifications for Admission: Justification of Admission Dx: Yes Aspiration Pneumonia: Hemodynamic Instability Comments: Extensive complicated surgery. GAMAL DAWN MD Feb 03, 2020 13:05
[2020-02-03] MEDS ORDERED: BUPIVACAINE-EPI 0.5%-1:200000 MPF 30 ML VIAL. ONE (13:34)
[2020-02-03] MEDS ORDERED: SURGICEL HEMOSTAT 4X8 EACH. ONE (14:35)
[2020-02-03] MEDS ORDERED: GLYCOPYRROLATE 1 MG/5 ML VIAL. ONE (14:38)
[2020-02-03] MEDS ORDERED: NEOSTIGMINE METHYLSULFATE 5 MG/5 ML SYRINGE. ONE (14:38)
[2020-02-03] MEDS ORDERED: KETAMINE HCL IN NACL, ISO-OSM 50 MG/5 ML SYRINGE ONE (15:11)
[2020-02-03] MEDS ORDERED: SEVOFLURANE > 120 MINUTES. IH ONE (15:24)
--- NOTE | 2020-02-03 16:11 | RAD ---
Examination: KUB History: Reason: INTRAOPERATIVE LAPROSCOPY, left upper quadrant masses reported on CT abdomen and pelvis 12/15/2019; history of colon carcinoma Comparison/Correlation: 04/09/2019 KUB x-ray exam Findings: Portable supine frontal view of the abdomen was obtained. Enteric tube terminates in the left upper quadrant overlying spica site of the stomach. Left-sided tubing or other linear density involving the left upper quadrant and mid abdominal flank level noted. Bowel gas pattern is unremarkable. Moderate quantity of stool is present in the colon. Left hip joint prosthesis is partially seen. Multilevel disc space degenerative changes of the lumbar spine. Impression: Enteric tube in place. Additional tubing also appears be present at the left upper quadrant and mid abdominal flank region. No bowel obstruction. No radiopaque foreign bodies. Electronically signed by: Ebenezer Aceves MD (02/03/2020 4:08 PM) [id number]
[2020-02-03] MEDS ORDERED: 0.9 % SODIUM CHLORIDE 10 ML DISP.SYRIN. IV PRN (17:00)
[2020-02-03] MEDS ORDERED: ONDANSETRON PF 4 MG/2 ML VIAL. IVP PRN (17:00)
[2020-02-03] MEDS ORDERED: NALOXONE 0.4 MG/ML VIAL. IV PRN (17:00)
[2020-02-03] MEDS ORDERED: MORPHINE SULFATE 30 ML IV ONE (17:11)
[2020-02-03] MEDS ORDERED: FAMOTIDINE 20 MG TABLET. PO PRN (17:15)
--- NOTE | 2020-02-03 17:18 | PDOC4 ---
OPERATIVE NOTE Date: Date: Feb 03, 2020 Pre-Op Diagnosis: Metastatic recurrent colon cancer, left flank pain Post-Op Diagnosis: same Procedure Performed: laparoscopic converted to open exploration, excision of 2 x LUQ peritoneal rib implants, distal pancreatectomy and splenectomy, excision of small bowel mesentery mass Surgeon: Pedro Pablo Dawn Anesthesia Type: GETA plus local Blood Loss: 100 Specimans Obtained: 2 x peritoneal masses, distal pancreas and spleen, small bowel mesentery mass, LUQ colon mesentery mass Findings: suspect some malignant ascites (sampled and sent for cytology), 2 x 3 cm mass posterior to left costal margin peritoneal implants (excised); large pancreatic/spleen mass, colon mesentery mass, small bowel mesentery mass Complications: none Operative Note: After obtaining informed consent, patient was taken to OR, induced under GETA and prepped in the usual fashion. 5 mm port placed LUQ under laparoscopic guidance. Abdominal cavity was explored and noted as above. Given these findings, an open procedure was indicated. LUQ costal margin incision was made with cautery. Two peritoneal masses were excised off the anterior peritoneum with cautery and ligasure and sent to pathology for evaluation. Stomach was grossly normal. Short gastric vessels were ligated with ligaure. Large mass noted in splenic fossa. Distal pancreas divided with FILI 75 stapler, proximal to area of concern. Splenic artery and splenic vein also separately ligated with 0 vicryl. Spleen taken off diaphragmatic and retroperitoneal attachments using ligasure. Specimen sent to pathology for evaluation. Anterior kidney not ed to be intact and not involved. 1 cm mass in colon mesentery taken with ligasure and sent to pathology. Small bowel was run from ligament of treitz to terminal ileum and noted to be normal except for 1 cm small mesentery mass excised with ligasure. Right and sigmoid colon noted to be intact and normal. Liver was normal without masses. No evidence of bleeding or other pathology. No gross obvious residual disease remained. 19 SILVIA placed in LUQ. Stomach placed in this area and small bowel anterior. Peritoneum closed with 0 vicryl. Anterior fascia repaired with 0 looped PDS. Skin repaired with 0 vicryl and 4 0 monocryl. Dressing placed. Patient tolerated procedure well and sent to PACU in stable condition. All counts correct. Wound class is 2. GAMAL DAWN MD Feb 03, 2020 17:18
[2020-02-03] MEDS: MORPHINE SULFATE 30 ML IV PRN (17:20)
[2020-02-03] MEDS ORDERED: ONDANSETRON ODT 4 MG TAB.RAPDIS. PO PRN (17:30)
--- NOTE | 2020-02-03 18:44 | NUR ---
Pt arrived to [facility] from PACU. Pt already in ICU bed, hooked up to monitors. Pt supine with a warm blanket. Left radial [place] in place. Pt answered all admission questions. Pt requesting to be DNR-- states she has an advanced directive on file here. Family brought to bedside 2 at a time to see patient. Pt's code given to 2 family members. 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 Dr. Gamez on the unit and aware of pt's admission.
--- NOTE | 2020-02-03 20:07 | PDOC2 ---
CONSULT Date of Consult Date of Consult DATE: 02/03/20 TIME: 19:45 Reason for Consult Reason for Consult: medical management Referring Physician Referring Physician: Dr Deleon Identification/Chief Complaint Chief Complaint Metastatic recurrent colon cancer Source Source: Chart review, Patient History of Present Illness Reason for Visit: Patient is an 89-year-old female with past medical history of colon cancer who unfortunately has had recurrent C of the disease. She presented with left flank pain. Patient was taken to the OR by Dr. Naidu today findings where 2 x 3 cm mass posterior to the left costal margin peritoneal implants large pancreatic/spleen mass:: Mesentery mass, small bowel mesentery mass. She also had some ascites which was suspected to be malignant. Her initial cancer was diagnosed in March 2019 when she underwent resection of a large nearly obstructing mass in the splenic flexure. Unsure at the present time if the patient is following up with oncology. There is one consult available for review by Dr. Patricia Cr by the time of her surgery March 2019. At the time of my evaluation the patient is in no acute distress. The patient seems to have fairly controlled pain but she does grimace every so often during my interview. Patient has a SAMPLER PICKUP pump currently on telemetry the patient has atrial fibrillation with a rapid ventricular response. Patient has past medical history of coronary artery disease dyslipidemia essential hypertension diabetes mellitus chronic renal insufficiency and has had a history of stroke. We will be managing the medical portion of her hospital stay. Past Medical History Cardiovascular: CAD, HTN, Hyperlipidemia Current Medications Current Medications Current Medications Ondansetron HCl (Zofran) 4 mg PRN Q6HRS PRN IV NAUSEA/VOMITING; Start 02/03/20 at 07:00; Stop 02/03/20 at 20:00 Fentanyl Citrate (Fentanyl 2ml Vial) 25 mcg PRN Q5MIN PRN IV MILD PAIN 1-3; Start 02/03/20 at 07:00; Stop 02/03/20 at 20:00 Fentanyl Citrate (Fentanyl 2ml Vial) 50 mcg PRN Q5MIN PRN IV MODERATE TO SEVERE PAIN; Start 02/03/20 at 07:00; Stop 02/03/20 at 20:00 Morphine Sulfate (Morphine Sulfate) 1 mg PRN Q10MIN PRN IV SEVERE PAIN 7-10; Start 02/03/20 at 07:00; Stop 02/03/20 at 20:00 Ringer's Solution 1,000 ml @ 30 mls/hr Q24H IV Last administered on 02/03/20at 17:04; Start 02/03/20 at 07:00; Stop 02/03/20 at 18:59; Status DC Lidocaine HCl (Xylocaine-Mpf 1% 2ml Vial) 2 ml PRN 1X PRN ID PRIOR TO IV START; Start 02/03/20 at 07:00; Stop 02/03/20 at 20:00 Hydromorphone HCl (Dilaudid) 0.5 mg PRN Q10MIN PRN IV SEV PAIN, Second choice; Start 02/03/20 at 07:00; Stop 02/03/20 at 20:00 Prochlorperazine Edisylate (Compazine) 5 mg PACU PRN PRN IV NAUSEA, MRX1; Start 02/03/20 at 07:00; Stop 02/03/20 at 20:00 Cefoxitin Sodium (Mefoxin) 2 gm 1X PREOP PRN IVP PRIOR TO SURGERY Last administered on 02/03/20at 13:09; Start 02/03/20 at 08:00 Cefoxitin Sodium (Mefoxin) 1 gm STK-MED ONCE IVP ; Start 02/03/20 at 10:31; Stop 02/03/20 at 10:31; Status DC Lidocaine HCl (Lidocaine Pf 2% Vial) 5 ml STK-MED ONCE .ROUTE ; Start 02/03/20 at 10:55; Stop 02/03/20 at 10:55; Status DC Etomidate (Amidate) 20 mg STK-MED ONCE IV ; Start 02/03/20 at 10:55; Stop 02/03/20 at 10:55; Status DC Dexamethasone Sodium Phosphate (Decadron) 4 mg STK-MED ONCE .ROUTE ; Start 02/03/20 at 10:55; Stop 02/03/20 at 10:55; Status DC Rocuronium [place] (Zemuron) 100 mg STK-MED ONCE .ROUTE ; Start 02/03/20 at 10:55; Stop 02/03/20 at 10:55; Status DC Fentanyl Citrate (Fentanyl 2ml Vial) 100 mcg STK-MED ONCE .ROUTE ; Start 02/03/20 at 10:55; Stop 02/03/20 at 10:55; Status DC Dexamethasone Sodium Phosphate (Decadron) 4 mg STK-MED ONCE .ROUTE ; Start 02/03/20 at 10:58; Stop 02/03/20 at 10:59; Status DC Ondansetron HCl (Zofran) 4 mg STK-MED ONCE .ROUTE ; Start 02/03/20 at 10:58; Stop 02/03/20 at 10:59; Status DC Phenylephrine HCl (Pierre-Synephrine Inj) 10 mg STK-MED ONCE .ROUTE ; Start 02/03/20 at 10:59; Stop 02/03/20 at 10:59; Status DC Insulin Human Lispro (HumaLOG VIAL for OP,RR ONLY) 0-10 units PRN Q1HR PRN SQ PER PROTOCOL Last administered on 02/03/20at 11:37; Start 02/03/20 at 11:30; Stop 02/04/20 at 11:29 Bupivacaine HCl/ Epinephrine Bitart (Sensorcain-Epi 0.5%-1:851994 Mpf) 30 ml STK-MED ONCE .ROUTE Last administered on 02/03/20at 13:37; Start 02/03/20 at 13:34; Stop 02/03/20 at 13:34; Status DC Cellulose (Surgicel Hemostat 4x8) 1 each STK-MED ONCE .ROUTE Last administered on 02/03/20at 15:00; Start 02/03/20 at 14:35; Stop 02/03/20 at 14:35; Status DC Neostigmine [place] (Neostigmine Methylsulfate) 5 mg STK-MED ONCE .ROUTE ; Start 02/03/20 at 14:38; Stop 02/03/20 at 14:38; Status DC Glycopyrrolate (Robinul) 1 mg STK-MED ONCE .ROUTE ; Start 02/03/20 at 14:38; Stop 02/03/20 at 14:38; Status DC Ketamine HCl (Ketamine) 50 mg STK-MED ONCE .ROUTE ; Start 02/03/20 at 15:11; Stop 02/03/20 at 15:11; Status DC Sevoflurane (Ultane) 90 ml STK-MED ONCE IH ; Start 02/03/20 at 15:24; Stop 02/03/20 at 15:24; Status DC Enoxaparin Sodium (Lovenox 40mg Syringe) 40 mg Q12HR SQ ; Start 02/03/20 at 21:00 Sodium Chloride (Normal Saline Flush) 3 ml QSHIFT PRN IV AFTER MEDS AND BLOOD DRAWS; Start 02/03/20 at 17:00 Ringer's Solution 1,000 ml @ 100 mls/hr Q10H IV Last administered on 02/03/20at 17:50; Start 02/03/20 at 17:00 Naloxone HCl (Narcan) 0.4 mg PRN Q2MIN PRN IV SEE INSTRUCTIONS; Start 02/03/20 at 17:00 Sodium Chloride 1,000 ml @ 25 mls/hr Q24H IV ; Start 02/03/20 at 17:00 Morphine Sulfate 30 ml @ 0 mls/hr CONT PRN PRN IV PER PROTOCOL Last ad ministered on 02/03/20at 17:20; Start 02/03/20 at 17:00 Ondansetron HCl (Zofran) 4 mg PRN Q6HRS PRN IVP FEMI, 1ST CHOICE; Start 02/03/20 at 17:00 Amlodipine Besylate (Norvasc) 5 mg DAILY08 PO ; Start 02/04/20 at 08:00 Atorvastatin Calcium (Lipitor) 40 mg QODAY PO ; Start 02/05/20 at 09:00 Famotidine (Pepcid) 20 mg PRN QHS PRN PO INDIGESTION; Start 02/03/20 at 17:15 Latanoprost (Xalatan) 1 drop QHS OU ; Start 02/03/20 at 21:00 Metformin HCl (Glucophage) 250 mg BIDWMEALS PO ; Start 02/04/20 at 08:00 Losartan Potassium (Cozaar) 100 mg DAILY PO ; Start 02/04/20 at 09:00 Metoprolol Tartrate (Lopressor) 100 mg BID PO ; Start 02/03/20 at 21:00 Multivitamins (Thera M Plus) 1 tab DAILY PO ; Start 02/04/20 at 09:00 Ondansetron HCl (Zofran Odt) 8 mg PRN BID PRN PO NAUSEA/VOMITING; Start 02/03/20 at 17:30 Morphine Sulfate 30 ml @ As Directed STK-MED ONCE IV ; Start 02/03/20 at 17:11; Stop 02/03/20 at 17:12; Status DC Active Scripts Active Reported Zofran (Ondansetron Hcl) 8 Mg Tablet 8 Mg PO BID PRN Oxycodone Hcl 20 Mg Tablet 10 Mg PO PRN PRN Centrum Silver Women Tablet (Multivits-Min/Iron/FA/Lutein) 1 Each Tablet 1 Each PO DAILY Pepcid (Famotidine) 20 Mg Tablet 20 Mg PO HS PRN Atorvastatin Calcium 40 Mg Tablet 1 Tab PO QODAY Eliquis (Apixaban) 2.5 Mg Tablet 2.5 Mg PO BID Metoprolol Tartrate 100 Mg Tablet 1 Tab PO BID LAST DOSE GIVEN: DATE:08/30/16 TIME:829 Amlodipine Besylate 5 Mg Tablet 1 Tab PO DAILY08 Last dose given: 8:30 a.m. Next dose due: 08-30-16 8:30 a.m. Latanoprost 2.5 Ml Drops 1 Drop EACHEYE QHS Last dose given: 08-31-16 9:00 p.m. Next dose due: tonight Losartan Potassium 100 Mg Tablet 1 Tab PO DAILY Last dose given: 8:30 a.m. Next dose due: 08-30-16 8:30 a.m. Metformin Hcl 500 Mg Tablet 250 Mg PO BIDWMEALS Last dose given: 09/01/16 8:30 a.m. Next dose due: tonight Allergies Allergies: Coded Allergies: MAHOGANY Inhibitors (Verified Allergy, Intermediate, 12/05/19) Histamine H2 Inhibitors (Verified Allergy, Intermediate, Rash, 12/05/19) aspirin (Verified Adverse Reaction, Intermediate, GASTRIC IRRITATION, 04/09/19) ROS General: No: Chills, Night Sweats, Fatigue, Malaise, Appetite, Other PSYCHOLOGICAL ROS: No: Anxiety, Behavioral Disorder, Concentration difficultie, Decreased libido, Depression, Disorientation, Hallucinations, Hostility, Irritablity, Memory difficulties, Mood Swings, Obsessive thoughts, Physical abuse, Sexual abuse, Sleep disturbances, Suicidal ideation, Other Eyes: No Blurry vision, No Decreased vision, No Double vision, No Dry eyes, No Excessive tearing, No Eye Pain, No Itchy Eyes, No Loss of vision, No Photophobia, No Scotomata, No Uses contacts, No Uses glasses, No Other HEENT: No: Heacaches, Visual Changes, Hearing change, Nasal congestion, Nasal discharge, Oral lesions, Sinus pain, Sore Throat, Epistaxis, Sneezing, Snoring, Tinnitus, Vertigo, Vocal changes, Other ALLERGY AND IMMUNOLOGY: No: Hives, Insect Bite Sensitivity, Itchy/Watery Eyes, Nasal Congestion, Post Nasal Drip, Seasonal Allergies, Other Hematological and Lymphatic: No: Bleeding Problems, Blood Clots, Blood Transfusions, Brusing, Night Sweats, Pallor, Swollen Lymph Nodes, Other ENDOCRINE: No: Breast Changes, Galactorrhea, Hair Pattern Changes, Hot Flashes, Malaise/lethargy, Mood Swings, Palpitations, Polydipsia/polyuria, Skin Changes, Temperature Intolerance, Unexpected Weight Changes, Other Breast: No New/Changing Breast Lumps, No Nipple changes, No Nipple discharge, No Other Respiratory: No: Cough, Hemoptysis, Orthopnea, Pleuritic Pain, Shortness of breath, SOB with excertion, Sputum Changes, Stridor, Tachypnea, Wheezing, Other Cardiovascular: No Chest Pain, No Palpitations, No Orthopnea, No Paroxysmal Noc. Dyspnea, No Edema, No Lt Headedness, No Other Gastrointestinal: No Nausea, No Vomiting, No Abdominal Pain, No Diarrhea, No Constipation, No Melena, No Hematochezia, No Other Genitourinary: No Dysuria, No Frequency, No Incontinence, No Hematuria, No Retention, No Discharge, No Urgency, No Pain, No Flank Pain, No Other, No , No , No , No , No , No , No Musculoskeletal: No Gait Disturbance, No Joint Pain, No Joint Stiffness, No Joint Swelling, No Muscle Pain, No Muscular Weakness, No Pain In:, No Swelling In:, No Other Neurological: No Behavorial Changes, No Bowel/Bladder ControlChng, No Confusion, No Dizziness, No Gait Disturbance, No Headaches, No Impaired Coord/balance, No Memory Loss, No Numbness/Tingling, No Seizures, No Speech Problems, No Tremors, No Visual Changes, No Weakness, No Other Skin: No Dry Skin, No Eczema, No Hair Changes, No Lumps, No Mole Changes, No Mottling, No Nail Changes, No Pruritus, No Rash, No Skin Lesion Changes, No Other, No Acne Physical Exam General: Alert, Oriented X3, Cooperative HEENT: Atraumatic, PERRLA, Mucous membr. moist/pink Lungs: Clear to auscultation, Normal air movement Heart: No murmurs, Other (Irregular rate and rhythm) Abdomen: Other (Absent bowel sounds, surgical dressings in place) Extremities: No clubbing, No cyanosis Skin: No rashes, No breakdown Psych/Mental Status: Mental status NL Vitals VITALS Vital Signs Date Time Temp Pulse Resp B/P (MAP) Pulse Ox O2 Delivery O2 Flow Rate FiO2 02/03/20 18:45 98 16 138/72 (94) 99 Nasal Cannula 2.0 02/03/20 17:45 97.9 97.9 Labs Labs Laboratory Tests Test 02/03/20 10:30 02/03/20 11:16 02/03/20 17:10 SARS-CoV-2 Antigen (Rapid) Negative (NEGATIVE) Glucose (Fingerstick) 125 mg/dL (70-99) 109 mg/dL (70-99) Laboratory Tests Test 02/03/20 10:30 02/03/20 11:16 02/03/20 17:10 SARS-CoV-2 Antigen (Rapid) Negative (NEGATIVE) Glucose (Fingerstick) 125 mg/dL (70-99) 109 mg/dL (70-99) Assessment/Plan Assessment/Plan Recurrence of colon cancer with metastatic disease Hypertension Hyperlipidemia Coronary artery disease Diabetes mellitus Chronic renal insufficiency GERD History of A. fib History of heart attack Glaucoma Osteoarthritis TIA Duodenal ulcer Plan Resume home medications We will hold metformin in the inpatient setting Resume apixaban once approved by attending We will give 1 dose of Cardizem for rate control Thank you for allowing us to participate in the care of the patient Reassess in the a.m. Pain management via SAMPLER PICKUP pump DVT prophylaxis as per attending AMOR MONTOYA MD Feb 03, 2020 20:07
[2020-02-03] MEDS: METOPROLOL TART IMMED RELEASE 50 MG TABLET. PO SCH (20:27)
[2020-02-03] MEDS: IV NORMAL SALINE 1000ML BAG 1,000 ML IV SCH (20:50)
[2020-02-03] MEDS: METOPROLOL TARTRATE 5 MG/5 ML VIAL. IVP SCH (20:52)
[2020-02-03] MEDS: ENOXAPARIN 40 MG/0.4 ML SYRINGE. SQ SCH (20:53)
[2020-02-03] MEDS ORDERED: dilTIAZem IV PUSH 25 MG/5 ML VIAL IVP ONE (21:00)
[2020-02-03] MEDS: LATANOPROST 0.005% OPHTH SOLUTION 2.5ML BOTTLE. OU SCH (21:51)
[2020-02-04] VITALS (24 sets, daily range): BP systolic 94–128; BP diastolic 48–80
[2020-02-04] MEDS: IV RINGERS,LACTATED 1000ML 1,000 ML IV SCH ×3 (01:31→21:33)
[2020-02-04] MEDS: METOPROLOL TARTRATE 5 MG/5 ML VIAL. IVP SCH ×5 (01:31→23:51)
[2020-02-04 06:09] LABS: BASO % 0 % (0-3); EOS % 0 % (0-3); HEMATOCRIT 36.2 % (36.0-47.0); HEMOGLOBIN 11.8 g/dL (12.0-15.5); LYMPH # 0.5 x10^3/uL (1.0-4.8); LYMPH % 3 % (24-48); MEAN CORPUSCULAR HEMOGLOBIN 31 pg (25-35); MEAN CORPUSCULAR HGB CONC 33 g/dL (31-37); MEAN CORPUSCULAR VOLUME 94 fL (79-100); MONO # 1.7 x10^3/uL (0.0-1.1); MONO % 11 % (0-9); NEUT # 13.4 x10^3/uL (1.8-7.7); NEUT % 86 % (31-73); PLATELET COUNT 234 x10^3/uL (140-400); RED BLOOD COUNT 3.84 x10^6/uL (3.50-5.40); RED CELL DISTRIBUTION WIDTH 14.1 % (11.5-14.5); WHITE BLOOD COUNT 15.6 x10^3/uL (4.0-11.0)
[2020-02-04 06:19] LABS: CREATININE 1.1 mg/dL (0.6-1.0); GFR 46.9; POTASSIUM 4.4 mmol/L (3.5-5.1)
--- NOTE | 2020-02-04 06:58 | PDOC ---
PROGRESS NOTES Date of Service: DATE: 02/04/20 TIME: 06:46 Chief Complaint Chief Complaint Assessment/Plan Recurrence of colon cancer with metastatic disease Hypertension Hyperlipidemia Coronary artery disease Diabetes mellitus Chronic renal insufficiency GERD History of A. fib History of heart attack Glaucoma Osteoarthritis TIA Duodenal ulcer Plan Resume home medications We will hold metformin in the inpatient setting will give cardizem Iv push if she is able to start oral diet she can have Cardizem PO, if not she may benefit from a Cardizem drip until oral route can be started Resume apixaban once approved by attending We will give 1 dose of Cardizem for rate control Thank you for allowing us to participate in the care of the patient Reassess in the a.m. Pain management via GIN FEEDER pump DVT prophylaxis as per attending History of Present Illness History of Present Illness Patient with uncontrolled heart rate, patient most likely will need a CCB and good analgesia. Patient resting comfortably in no acute distress. NO chest pain no dyspnea reported. Vitals Vitals Vital Signs Date Time Temp Pulse Resp B/P (MAP) Pulse Ox O2 Delivery O2 Flow Rate FiO2 02/04/20 06:00 14 14 98/54 (69) 96 Nasal Cannula 2.0 02/04/20 04:00 97.4 97.4 Physical Exam General: Alert, Oriented X3, Cooperative Heart: No murmurs, Other (Irregular rate and rhythm) Lungs: Clear Abdomen: Other (Absent bowel sounds, surgical dressings in place) Extremities: No clubbing, No cyanosis Skin: No rashes, No breakdown Labs LABS Laboratory Tests Test 02/03/20 10:30 02/03/20 11:16 02/03/20 17:10 02/04/20 05:40 SARS-CoV-2 Antigen (Rapid) Negative (NEGATIVE) Glucose (Fingerstick) 125 mg/dL (70-99) 109 mg/dL (70-99) White Blood Count 15.6 x10^3/uL (4.0-11.0) Red Blood Count 3.84 x10^6/uL (3.50-5.40) Hemoglobin 11.8 g/dL (12.0-15.5) Hematocrit 36.2 % (36.0-47.0) Mean Corpuscular Volume 94 fL (79-100) Mean Corpuscular Hemoglobin 31 pg (25-35) Mean Corpuscular Hemoglobin Concent 33 g/dL (31-37) Red Cell Distribution Width 14.1 % (11.5-14.5) Platelet Count 234 x10^3/uL (140-400) Neutrophils (%) (Auto) 86 % (31-73) Lymphocytes (%) (Auto) 3 % (24-48) Monocytes (%) (Auto) 11 % (0-9) Eosinophils (%) (Auto) 0 % (0-3) Basophils (%) (Auto) 0 % (0-3) Neutrophils # (Auto) 13.4 x10^3/uL (1.8-7.7) Lymphocytes # (Auto) 0.5 x10^3/uL (1.0-4.8) Monocytes # (Auto) 1.7 x10^3/uL (0.0-1.1) Eosinophils # (Auto) 0.0 x10^3/uL (0.0-0.7) Basophils # (Auto) 0.0 x10^3/uL (0.0-0.2) Sodium Level 134 mmol/L (136-145) Potassium Level 4.4 mmol/L (3.5-5.1) Chloride Level 102 mmol/L (98-107) Carbon Dioxide Level 21 mmol/L (21-32) Anion Gap 11 (6-14) Blood Urea Nitrogen 11 mg/dL (7-20) Creatinine 1.1 mg/dL (0.6-1.0) Estimated GFR (Cockcroft-Gault) 46.9 Glucose Level 105 mg/dL (70-99) Calcium Level 8.0 mg/dL (8.5-10.1) Comment Review of Relevant I have reviewed the following items goldy (where applicable) has been applied. Labs Laboratory Tests Test 02/03/20 10:30 02/03/20 11:16 02/03/20 17:10 02/04/20 05:40 SARS-CoV-2 Antigen (Rapid) Negative (NEGATIVE) Glucose (Fingerstick) 125 mg/dL (70-99) 109 mg/dL (70-99) White Blood Count 15.6 x10^3/uL (4.0-11.0) Red Blood Count 3.84 x10^6/uL (3.50-5.40) Hemoglobin 11.8 g/dL (12.0-15.5) Hematocrit 36.2 % (36.0-47.0) Mean Corpuscular Volume 94 fL (79-100) Mean Corpuscular Hemoglobin 31 pg (25-35) Mean Corpuscular Hemoglobin Concent 33 g/dL (31-37) Red Cell Distribution Width 14.1 % (11.5-14.5) Platelet Count 234 x10^3/uL (140-400) Neutrophils (%) (Auto) 86 % (31-73) Lymphocytes (%) (Auto) 3 % (24-48) Monocytes (%) (Auto) 11 % (0-9) Eosinophils (%) (Auto) 0 % (0-3) Basophils (%) (Auto) 0 % (0-3) Neutrophils # (Auto) 13.4 x10^3/uL (1.8-7.7) Lymphocytes # (Auto) 0.5 x10^3/uL (1.0-4.8) Monocytes # (Auto) 1.7 x10^3/uL (0.0-1.1) Eosinophils # (Auto) 0.0 x10^3/uL (0.0-0.7) Basophils # (Auto) 0.0 x10^3/uL (0.0-0.2) Sodium Level 134 mmol/L (136-145) Potassium Level 4.4 mmol/L (3.5-5.1) Chloride Level 102 mmol/L (98-107) Carbon Dioxide Level 21 mmol/L (21-32) Anion Gap 11 (6-14) Blood Urea Nitrogen 11 mg/dL (7-20) Creatinine 1.1 mg/dL (0.6-1.0) Estimated GFR (Cockcroft-Gault) 46.9 Glucose Level 105 mg/dL (70-99) Calcium Level 8.0 mg/dL (8.5-10.1) Laboratory Tests Test 02/03/20 10:30 02/03/20 11:16 02/03/20 17:10 02/04/20 05:40 SARS-CoV-2 Antigen (Rapid) Negative (NEGATIVE) Glucose (Fingerstick) 125 mg/dL (70-99) 109 mg/dL (70-99) White Blood Count 15.6 x10^3/uL (4.0-11.0) Red Blood Count 3.84 x10^6/uL (3.50-5.40) Hemoglobin 11.8 g/dL (12.0-15.5) Hematocrit 36.2 % (36.0-47.0) Mean Corpuscular Volume 94 fL (79-100) Mean Corpuscular Hemoglobin 31 pg (25-35) Mean Corpuscular Hemoglobin Concent 33 g/dL (31-37) Red Cell Distribution Width 14.1 % (11.5-14.5) Platelet Count 234 x10^3/uL (140-400) Neutrophils (%) (Auto) 86 % (31-73) Lymphocytes (%) (Auto) 3 % (24-48) Monocytes (%) (Auto) 11 % (0-9) Eosinophils (%) (Auto) 0 % (0-3) Basophils (%) (Auto) 0 % (0-3) Neutrophils # (Auto) 13.4 x10^3/uL (1.8-7.7) Lymphocytes # (Auto) 0.5 x10^3/uL (1.0-4.8) Monocytes # (Auto) 1.7 x10^3/uL (0.0-1.1) Eosinophils # (Auto) 0.0 x10^3/uL (0.0-0.7) Basophils # (Auto) 0.0 x10^3/uL (0.0-0.2) Sodium Level 134 mmol/L (136-145) Potassium Level 4.4 mmol/L (3.5-5.1) Chloride Level 102 mmol/L (98-107) Carbon Dioxide Level 21 mmol/L (21-32) Anion Gap 11 (6-14) Blood Urea Nitrogen 11 mg/dL (7-20) Creatinine 1.1 mg/dL (0.6-1.0) Estimated GFR (Cockcroft-Gault) 46.9 Glucose Level 105 mg/dL (70-99) Calcium Level 8.0 mg/dL (8.5-10.1) Medications Current Medications Ondansetron HCl (Zofran) 4 mg PRN Q6HRS PRN IV NAUSEA/VOMITING; Start 02/03/20 at 07:00; Stop 02/03/20 at 20:00; Status DC Fentanyl Citrate (Fentanyl 2ml Vial) 25 mcg PRN Q5MIN PRN IV MILD PAIN 1-3; Start 02/03/20 at 07:00; Stop 02/03/20 at 20:00; Status DC Fentanyl Citrate (Fentanyl 2ml Vial) 50 mcg PRN Q5MIN PRN IV MODERATE TO SEVERE PAIN; Start 02/03/20 at 07:00; Stop 02/03/20 at 20:00; Status DC Morphine Sulfate (Morphine Sulfate) 1 mg PRN Q10MIN PRN IV SEVERE PAIN 7-10; Start 02/03/20 at 07:00; Stop 02/03/20 at 20:00; Status DC Ringer's Solution 1,000 ml @ 30 mls/hr Q24H IV Last administered on 02/03/20at 17:04; Start 02/03/20 at 07:00; Stop 02/03/20 at 18:59; Status DC Lidocaine HCl (Xylocaine-Mpf 1% 2ml Vial) 2 ml PRN 1X PRN ID PRIOR TO IV START; Start 02/03/20 at 07:00; Stop 02/03/20 at 20:00; Status DC Hydromorphone HCl (Dilaudid) 0.5 mg PRN Q10MIN PRN IV SEV PAIN, Second choice; Start 02/03/20 at 07:00; Stop 02/03/20 at 20:00; Status DC Prochlorperazine Edisylate (Compazine) 5 mg PACU PRN PRN IV NAUSEA, MRX1; Start 02/03/20 at 07:00; Stop 02/03/20 at 20:00; Status DC Cefoxitin Sodium (Mefoxin) 2 gm 1X PREOP PRN IVP PRIOR TO SURGERY Last administered on 02/03/20at 13:09; Start 02/03/20 at 08:00 Cefoxitin Sodium (Mefoxin) 1 gm STK-MED ONCE IVP ; Start 02/03/20 at 10:31; Stop 02/03/20 at 10:31; Status DC Lidocaine HCl (Lidocaine Pf 2% Vial) 5 ml STK-MED ONCE .ROUTE ; Start 02/03/20 at 10:55; Stop 02/03/20 at 10:55; Status DC Etomidate (Amidate) 20 mg STK-MED ONCE IV ; Start 02/03/20 at 10:55; Stop 02/03/20 at 10:55; Status DC Dexamethasone Sodium Phosphate (Decadron) 4 mg STK-MED ONCE .ROUTE ; Start 02/03/20 at 10:55; Stop 02/03/20 at 10:55; Status DC Rocuronium Fanshawe (Zemuron) 100 mg STK-MED ONCE .ROUTE ; Start 02/03/20 at 10:55; Stop 02/03/20 at 10:55; Status DC Fentanyl Citrate (Fentanyl 2ml Vial) 100 mcg STK-MED ONCE .ROUTE ; Start 02/03/20 at 10:55; Stop 02/03/20 at 10:55; Status DC Dexamethasone Sodium Phosphate (Decadron) 4 mg STK-MED ONCE .ROUTE ; Start 02/03/20 at 10:58; Stop 02/03/20 at 10:59; Status DC Ondansetron HCl (Zofran) 4 mg STK-MED ONCE .ROUTE ; Start 02/03/20 at 10:58; Stop 02/03/20 at 10:59; Status DC Phenylephrine HCl (Pierre-Synephrine Inj) 10 mg STK-MED ONCE .ROUTE ; Start 02/03/20 at 10:59; Stop 02/03/20 at 10:59; Status DC Insulin Human Lispro (HumaLOG VIAL for OP,RR ONLY) 0-10 units PRN Q1HR PRN SQ PER PROTOCOL Last administered on 02/03/20at 11:37; Start 02/03/20 at 11:30; Stop 02/04/20 at 11:29 Bupivacaine HCl/ Epinephrine Bitart (Sensorcain-Epi 0.5%-1:278375 Mpf) 30 ml STK-MED ONCE .ROUTE Last administered on 02/03/20at 13:37; Start 02/03/20 at 13:34; Stop 02/03/20 at 13:34; Status DC Cellulose (Surgicel Hemostat 4x8) 1 each STK-MED ONCE .ROUTE Last administered on 02/03/20at 15:00; Start 02/03/20 at 14:35; Stop 02/03/20 at 14:35; Status DC Neostigmine Fanshawe (Neostigmine Methylsulfate) 5 mg STK-MED ONCE .ROUTE ; Start 02/03/20 at 14:38; Stop 02/03/20 at 14:38; Status DC Glycopyrrolate (Robinul) 1 mg STK-MED ONCE .ROUTE ; Start 02/03/20 at 14:38; Stop 02/03/20 at 14:38; Status DC Ketamine HCl (Ketamine) 50 mg STK-MED ONCE .ROUTE ; Start 02/03/20 at 15:11; Stop 02/03/20 at 15:11; Status DC Sevoflurane (Ultane) 90 ml STK-MED ONCE IH ; Start 02/03/20 at 15:24; Stop 02/03/20 at 15:24; Status DC Enoxaparin Sodium (Lovenox 40mg Syringe) 40 mg Q12HR SQ Last administered on 02/03/20at 20:53; Start 02/03/20 at 21:00 Sodium Chloride (Normal Saline Flush) 3 ml QSHIFT PRN IV AFTER MEDS AND BLOOD DRAWS; Start 02/03/20 at 17:00 Ringer's Solution 1,000 ml @ 100 mls/hr Q10H IV Last administered on 02/04/20at 01:31; Start 02/03/20 at 17:00 Naloxone HCl (Narcan) 0.4 mg PRN Q2MIN PRN IV SEE INSTRUCTIONS; Start 02/03/20 at 17:00 Sodium Chloride 1,000 ml @ 25 mls/hr Q24H IV Last administered on 02/03/20at 20:50; Start 02/03/20 at 17:00 Morphine Sulfate 30 ml @ 0 mls/hr CONT PRN PRN IV PER PROTOCOL Last administered on 02/03/20at 17:20; Start 02/03/20 at 17:00 Ondansetron HCl (Zofran) 4 mg PRN Q6HRS PRN IVP NAUESA, 1ST CHOICE; Start 02/03/20 at 17:00 Amlodipine Besylate (Norvasc) 5 mg DAILY08 PO ; Start 02/04/20 at 08:00 Atorvastatin Calcium (Lipitor) 40 mg QODAY PO ; Start 02/05/20 at 09:00 Famotidine (Pepcid) 20 mg PRN QHS PRN PO INDIGESTION; Start 02/03/20 at 17:15 Latanoprost (Xalatan) 1 drop QHS OU Last administered on 02/03/20at 21:51; Start 02/03/20 at 21:00 Metformin HCl (Glucophage) 250 mg BIDWMEALS PO ; Start 02/04/20 at 08:00; Stop 02/03/20 at 20:19; Status DC Losartan Potassium (Cozaar) 100 mg DAILY PO ; Start 02/04/20 at 09:00 Metoprolol Tartrate (Lopressor) 100 mg BID PO ; Start 02/03/20 at 21:00 Multivitamins (Thera M Plus) 1 tab DAILY PO ; Start 02/04/20 at 09:00 Ondansetron HCl (Zofran Odt) 8 mg PRN BID PRN PO NAUSEA/VOMITING; Start 02/03/20 at 17:30 Morphine Sulfate 30 ml @ As Directed STK-MED ONCE IV ; Start 02/03/20 at 17:11; Stop 02/03/20 at 17:12; Status DC Metoprolol Tartrate (Lopressor Vial) 5 mg Q6HRS IVP Last administered on 02/04/20at 05:29; Start 02/03/20 at 21:00 Diltiazem HCl (Cardizem Iv Push) 10 mg 1X ONCE IVP Last administered on 02/03/20at 20:51; Start 02/03/20 at 21:00; Stop 02/03/20 at 21:01; Status DC Active Scripts Active Reported Zofran (Ondansetron Hcl) 8 Mg Tablet 8 Mg PO BID PRN Oxycodone Hcl 20 Mg Tablet 10 Mg PO PRN PRN Centrum Silver Women Tablet (Multivits-Min/Iron/FA/Lutein) 1 Each Tablet 1 Each PO DAILY Pepcid (Famotidine) 20 Mg Tablet 20 Mg PO HS PRN Atorvastatin Calcium 40 Mg Tablet 1 Tab PO QODAY Eliquis (Apixaban) 2.5 Mg Tablet 2.5 Mg PO BID Metoprolol Tartrate 100 Mg Tablet 1 Tab PO BID LAST DOSE GIVEN: DATE:08/30/16 TIME:829 Amlodipine Besylate 5 Mg Tablet 1 Tab PO DAILY08 Last dose given: 8:30 a.m. Next dose due: 08-30-16 8:30 a.m. Latanoprost 2.5 Ml Drops 1 Drop EACHEYE QHS Last dose given: 08-31-16 9:00 p.m. Next dose due: tonight Losartan Potassium 100 Mg Tablet 1 Tab PO DAILY Last dose given: 8:30 a.m. Next dose due: 08-30-16 8:30 a.m. Metformin Hcl 500 Mg Tablet 250 Mg PO BIDWMEALS Last dose given: 09/01/16 8:30 a.m. Next dose due: tonight Vitals/I & O Vital Sign - Last 24 Hours 02/03/20 02/03/20 02/03/20 02/03/20 11:26 11:27 11:28 15:39 Temp 97 97 97.0 97.0 Pulse 117 117 Resp 20 B/P (MAP) 132/78 Pulse Ox 96 96 O2 Delivery Room Air Room Air Mask O2 Flow Rate 10 02/03/20 02/03/20 02/03/20 02/03/20 15:39 15:54 16:11 16:26 Temp 98.4 98.4 Pulse 100 100 111 106 Resp 20 20 20 20 B/P (MAP) 132/62 118/63 127/74 156/90 Pulse Ox 98 99 100 100 O2 Delivery Simple Mask Simple Mask Simple Mask Room Air O2 Flow Rate 10 10 10 02/03/20 02/03/20 02/03/20 02/03/20 16:41 16:56 17:11 17:20 Pulse 116 116 110 Resp 20 20 20 22 B/P (MAP) 158/82 156/80 113/59 Pulse Ox 98 98 96 94 O2 Delivery Nasal Cannula Simple Mask Nasal Cannula Nasal Cannula O2 Flow Rate 2 10 2 2.0 02/03/20 02/03/20 02/03/20 02/03/20 17:35 17:35 17:45 18:00 Temp 97.0 97.9 97.0 97.9 Pulse 116 102 Resp 20 15 B/P (MAP) 127/67 156/70 (98) Pulse Ox 97 93 O2 Delivery Nasal Cannula Nasal Cannula Nasal Cannula Nasal Cannula O2 Flow Rate 2 2 2.0 2.0 02/03/20 02/03/20 02/03/20 02/03/20 18:00 18:15 18:30 18:45 Pulse 112 116 112 98 Resp 15 16 16 16 B/P (MAP) 144/70 (94) 152/76 (101) 152/75 (100) 138/72 (94) Pulse Ox 98 99 99 99 O2 Delivery Nasal Cannula Nasal Cannula Nasal Cannula Nasal Cannula O2 Flow Rate 2.0 2.0 2.0 2.0 02/03/20 02/03/20 02/03/20 02/03/20 19:00 20:00 20:00 20:51 Temp 98.1 98.1 Pulse 98 126 123 Resp 16 13 B/P (MAP) 138/72 (94) 151/76 (101) 144/76 Pulse Ox 99 99 O2 Delivery Nasal Cannula Nasal Cannula Nasal Cannula O2 Flow Rate 2.0 2.0 2.0 02/03/20 02/03/20 02/03/20 02/03/20 20:52 21:00 22:00 23:00 Pulse 125 76 87 123 Resp 14 14 14 B/P (MAP) 143/69 114/50 (71) 127/63 (84) 135/59 (84) Pulse Ox 99 99 99 O2 Delivery Nasal Cannula Nasal Cannula Nasal Cannula O2 Flow Rate 2.0 2.0 2.0 02/03/20 02/04/20 02/04/20 02/04/20 23:59 00:01 01:00 01:31 Temp 98.4 98.4 Pulse 120 109 147 Resp 12 12 B/P (MAP) 128/62 (84) 124/53 (76) 98/51 Pulse Ox 99 95 O2 Delivery Nasal Cannula Nasal Cannula Nasal Cannula O2 Flow Rate 2.0 2.0 2.0 02/04/20 02/04/20 02/04/20 02/04/20 02:00 03:00 04:00 04:00 Temp 97.4 97.4 Pulse 115 130 127 Resp 14 13 14 B/P (MAP) 124/53 (76) 124/53 (76) 124/53 (76) Pulse Ox 94 94 96 O2 Delivery Nasal Cannula Nasal Cannula Nasal Cannula Nasal Cannula O2 Flow Rate 2.0 2.0 2.0 2.0 02/04/20 02/04/20 02/04/20 05:00 05:29 06:00 Pulse 114 159 14 Resp 14 14 B/P (MAP) 114/56 (75) 114/56 98/54 (69) Pulse Ox 98 96 O2 Delivery Nasal Cannula Nasal Cannula O2 Flow Rate 2.0 2.0 Intake and Output 02/03/20 02/03/20 02/04/20 15:00 23:00 07:00 Intake Total 1200 ml 314.5 ml Output Total 435 ml 290 ml Balance 765 ml 24.5 ml Justicifation of Admission Dx: Justifications for Admission: Justification of Admission Dx: Yes Aspiration Pneumonia: Hemodynamic Instability AMOR MONTOYA MD Feb 04, 2020 06:58
[2020-02-04] MEDS ORDERED: dilTIAZem IV PUSH 25 MG/5 ML VIAL IVP ONE (07:00)
[2020-02-04] MEDS: amLODIPine BESYLATE 5 MG TABLET PO SCH (08:00)
[2020-02-04] MEDS ORDERED: metFORMIN 500 MG TABLET PO SCH (08:00)
--- NOTE | 2020-02-04 08:28 | PDOC2 ---
UMA HUMPHRIES STEEL CHECKER 02/04/20 0828: CARDIAC CONSULT DATE OF CONSULT Date of Consult DATE: 02/04/20 TIME: 08:20 REASON FOR CONSULT Reason for Consult: AFIB REFERRING PHYSICIAN Referring Physician: Dr. Deleon SOURCE Source: Chart review, Patient HISTORY OF PRESENT ILLNESS HISTORY OF PRESENT ILLNESS This is an 89 yo female, with a history of recurrent colon CA, who presented with left flank pain, which was felt to be due to the cancer. Patient was taken to OR. Findings include 2 x 3 cm mass posterior to the left costal margin peritoneal implants large pancreatic/spleen mass, mesentery mass, small bowel mesentery mass. She underwent excision of 2 x LUQ peritoneal rib implants, distal pancreatectomy and splenectomy, excision of small bowel mesentery mass. Postoperatively, was noted in AFIB, which prompted this consult PAST MEDICAL HISTORY Cardiovascular: CAD, HTN, Hyperlipidemia GI: GERD Heme/Onc: Anemia NOS, Cancer (colon ) Musculoskeletal: Osteoarthritis Renal/: Chronic renal insuff Endocrine: Diabetes PAST SURGICAL HISTORY Past Surgical History: Appendectomy, Cholecystectomy, Cataract Removal, Total hip replacement, Total knee replacement (right ), Hysterectomy, Colon Resection, Other ( abdominal aortic aneurysm repair) FAMILY HISTORY Family History: Cancer (breast ), Diabetes, Hypertension SOCIAL HISTORY Smoke: No ALCOHOL: none Drugs: None Lives: with Family CURRENT MEDICATIONS CURRENT MEDICATIONS Current Medications Medications (Trade) Dose Ordered Sig/Nelly Route PRN Reason Start Time Stop Time Status Last Admin Dose Admin Insulin Human Lispro (HumaLOG VIAL for OP,RR ONLY) 0-10 units PRN Q1HR PRN SQ PER PROTOCOL 02/03/20 11:30 02/04/20 11:29 02/03/20 11:37 Bupivacaine HCl/ Epinephrine Bitart (Sensorcain-Epi 0.5%-1:784820 Mpf) 30 ml STK-MED ONCE .ROUTE 02/03/20 13:34 02/03/20 13:34 DC 02/03/20 13:37 Cellulose (Surgicel Hemostat 4x8) 1 each STK-MED ONCE .ROUTE 02/03/20 14:35 02/03/20 14:35 DC 02/03/20 15:00 Enoxaparin Sodium (Lovenox 40mg Syringe) 40 mg Q12HR SQ 02/03/20 21:00 02/03/20 20:53 Ringer's Solution 1,000 ml @ 100 mls/hr Q10H IV 02/03/20 17:00 02/04/20 01:31 Sodium Chloride 1,000 ml @ 25 mls/hr Q24H IV 02/03/20 17:00 02/03/20 20:50 Morphine Sulfate 30 ml @ 0 mls/hr CONT PRN PRN IV PER PROTOCOL 02/03/20 17:00 02/03/20 17:20 Latanoprost (Xalatan) 1 drop QHS OU 02/03/20 21:00 02/03/20 21:51 Metoprolol Tartrate (Lopressor Vial) 5 mg Q6HRS IVP 02/03/20 21:00 02/04/20 05:29 Diltiazem HCl (Cardizem Iv Push) 10 mg 1X ONCE IVP 02/03/20 21:00 02/03/20 21:01 DC 02/03/20 20:51 Diltiazem HCl (Cardizem Iv Push) 10 mg 1X ONCE IVP 02/04/20 07:00 02/04/20 07:01 DC 02/04/20 08:08 ALLERGIES ALLERGIES: Coded Allergies: MAHOGANY Inhibitors (Verified Allergy, Intermediate, 12/05/19) Histamine H2 Inhibitors (Verified Allergy, Intermediate, Rash, 12/05/19) aspirin (Verified Adverse Reaction, Intermediate, GASTRIC IRRITATION, 04/09/19) ROS Review of System 14 point ROS conducted with pertinent positives noted above in hPI PHYSICAL EXAM General: Alert, Cooperative, No acute distress HEENT: Atraumatic, Mucous membr. moist/pink Lungs: Clear to auscultation Heart: Other (AFIB with RVR) Abdomen: Soft, Other (post op drsg) Extremities: No edema, Normal pulses Skin: No significant lesion Neuro: Normal speech, Sensation intact Psych/Mental Status: Mental status NL, Other (sleepy) MUSCULOSKELETAL: Osteoarthritic changes both hands VITALS/I&O VITALS/I&O: Vital Signs Date Time Temp Pulse Resp B/P (MAP) Pulse Ox O2 Delivery O2 Flow Rate FiO2 02/04/20 08:08 122 110/62 02/04/20 07:00 98.8 12 97 Nasal Cannula 2.0 98.8 I & O 02/03/20 02/03/20 02/04/20 14:59 22:59 06:59 Intake Total 1200 ml 314.5 ml Output Total 435 ml 345 ml Balance 765 ml -30.5 ml LABS Lab: Laboratory Tests Test 02/03/20 10:30 02/03/20 11:16 02/03/20 17:10 02/04/20 05:40 SARS-CoV-2 Antigen (Rapid) Negative (NEGATIVE) Glucose (Fingerstick) 125 mg/dL (70-99) H 109 mg/dL (70-99) H White Blood Count 15.6 x10^3/uL (4.0-11.0) H Red Blood Count 3.84 x10^6/uL (3.50-5.40) Hemoglobin 11.8 g/dL (12.0-15.5) L Hematocrit 36.2 % (36.0-47.0) Mean Corpuscular Volume 94 fL (79-100) Mean Corpuscular Hemoglobin 31 pg (25-35) Mean Corpuscular Hemoglobin Concent 33 g/dL (31-37) Red Cell Distribution Width 14.1 % (11.5-14.5) Platelet Count 234 x10^3/uL (140-400) Neutrophils (%) (Auto) 86 % (31-73) H Lymphocytes (%) (Auto) 3 % (24-48) L Monocytes (%) (Auto) 11 % (0-9) H Eosinophils (%) (Auto) 0 % (0-3) Basophils (%) (Auto) 0 % (0-3) Neutrophils # (Auto) 13.4 x10^3/uL (1.8-7.7) H Lymphocytes # (Auto) 0.5 x10^3/uL (1.0-4.8) L Monocytes # (Auto) 1.7 x10^3/uL (0.0-1.1) H Eosinophils # (Auto) 0.0 x10^3/uL (0.0-0.7) Basophils # (Auto) 0.0 x10^3/uL (0.0-0.2) Platelet Estimate Pending Sodium Level 134 mmol/L (136-145) L Potassium Level 4.4 mmol/L (3.5-5.1) Chloride Level 102 mmol/L (98-107) Carbon Dioxide Level 21 mmol/L (21-32) Anion Gap 11 (6-14) Blood Urea Nitrogen 11 mg/dL (7-20) Creatinine 1.1 mg/dL (0.6-1.0) H Estimated GFR (Cockcroft-Gault) 46.9 Glucose Level 105 mg/dL (70-99) H Calcium Level 8.0 mg/dL (8.5-10.1) L Laboratory Tests 02/04/20 05:40 Laboratory Tests 02/04/20 05:40 ECHOCARDIOGRAM ECHOCARDIOGRAM <Conclusion> The left ventricle is normal size. The left ventricular systolic function is normal and the ejection fraction is within normal range. The Ejection Fraction is 55-60%. Doppler and Color Flow revealed no significant aortic regurgitation. There is no significant aortic valvular stenosis. The mitral valve is calcified but opens well. Doppler and Color-flow revealed mild to moderate mitral regurgitation. Doppler and Color Flow revealed mild tricuspid regurgitation. The PA pressure was estimated at 44 mmHg. DATE: 01/29/20 1445 ASSESSMENT/PLAN ASSESSMENT/PLAN 1. Colon CA s/p colon resection 03/2019; recurrent with metastatic disease. 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 POD#1 2. AFIB; currently in AFIB with RVR. Reviewed cardiology and PCP office notes along with prior hospitalization notes. No prior formal diagnosis of AFIB. She was placed on low-dose Eliquis in 2016 by neurology due to stroke with concerns for embolic etiology. 3. CAD s/p PCI/stenting; clinically stable. Recent echo with preserved LV systolic function 4. Hypertension; controlled 5. Hyperlipidemia; statin therapy 6. Diabetes, II; as per PCP 7. CKD; Cr stable Recommendations Remains NPO Will start Cardizem gtt for rate control as BP allows Resume metoprolol for rate control when able to take PO Lovenox therapy. Resume Eliquis for stroke prophylaxis when able to take oral TSH, Mg level Continue post-op management as per GS team Consider outpatient CV if she remains in AFIB Supportive care SHADY DELGADILLO MD 02/05/20 0908: CARDIAC CONSULT ASSESSMENT/PLAN ASSESSMENT/PLAN Patient seen and examined 02/04/20. Agree with BINDING CUTTER's assessment and plan. Atrial fibrillation with RVR, newly diagnosed. Continue Cardizem drip for rate control. Recent 2D echo showed normal LV systolic function. Start Eliquis for stroke prophylaxis when okay from surgical standpoint. We will consider outpatient cardioversion if she continues to be in atrial fibrillation. Continue postop care per general surgery team. Thank you for your consultation. UMA HUMPHRIES APRN Feb 04, 2020 08:28 SHADY DELGADILLO MD Feb 05, 2020 09:08
[2020-02-04] MEDS: METOPROLOL TART IMMED RELEASE 50 MG TABLET. PO SCH ×2 (09:00→20:33)
[2020-02-04] MEDS: MULTIVITAMIN with MINERAL TABLET. PO SCH (09:00)
[2020-02-04] MEDS: LOSARTAN POTASSIUM 50 MG TABLET. PO SCH (09:00)
[2020-02-04 09:49] LABS: % BANDS 1 % (0-9); % LYMPHS 2 % (24-48); % MONOS 3 % (0-10); % SEGS 94 % (35-66); PLT ESTIMATE ADEQUATE (ADEQUATE)
[2020-02-04] MEDS: ENOXAPARIN 40 MG/0.4 ML SYRINGE. SQ SCH (09:52)
[2020-02-04 10:26] LABS: CHOLESTEROL/HDL RATIO 2.3; MAGNESIUM 1.5 mg/dL (1.8-2.4)
--- NOTE | 2020-02-04 11:13 | PDOC ---
SURGICAL PROGRESS NOTE DATE: 02/04/20 TIME: 11:11 Subjective resting pain managed family present Vital Signs Vital Signs Date Time Temp Pulse Resp B/P (MAP) Pulse Ox O2 Delivery O2 Flow Rate FiO2 02/04/20 10:00 116 12 110/56 (74) 97 Nasal Cannula 2.0 02/04/20 07:00 98.8 98.8 I&O Intake and Output 02/04/20 07:00 Intake Total 1514.5 ml Output Total 800 ml Balance 714.5 ml Intake IV Total 1514.5 ml Output Urine Total 570 ml Drainage Total 230 ml General: Alert, Oriented X3, Cooperative Abdomen: Soft, Other (drain serous, dressing dry) Labs Laboratory Tests Test 02/03/20 10:30 02/03/20 11:16 02/03/20 17:10 02/04/20 05:40 SARS-CoV-2 Antigen (Rapid) Negative (NEGATIVE) Glucose (Fingerstick) 125 mg/dL (70-99) 109 mg/dL (70-99) White Blood Count 15.6 x10^3/uL (4.0-11.0) Red Blood Count 3.84 x10^6/uL (3.50-5.40) Hemoglobin 11.8 g/dL (12.0-15.5) Hematocrit 36.2 % (36.0-47.0) Mean Corpuscular Volume 94 fL (79-100) Mean Corpuscular Hemoglobin 31 pg (25-35) Mean Corpuscular Hemoglobin Concent 33 g/dL (31-37) Red Cell Distribution Width 14.1 % (11.5-14.5) Platelet Count 234 x10^3/uL (140-400) Neutrophils (%) (Auto) 86 % (31-73) Lymphocytes (%) (Auto) 3 % (24-48) Monocytes (%) (Auto) 11 % (0-9) Eosinophils (%) (Auto) 0 % (0-3) Basophils (%) (Auto) 0 % (0-3) Neutrophils # (Auto) 13.4 x10^3/uL (1.8-7.7) Lymphocytes # (Auto) 0.5 x10^3/uL (1.0-4.8) Monocytes # (Auto) 1.7 x10^3/uL (0.0-1.1) Eosinophils # (Auto) 0.0 x10^3/uL (0.0-0.7) Basophils # (Auto) 0.0 x10^3/uL (0.0-0.2) Segmented Neutrophils % 94 % (35-66) Band Neutrophils % 1 % (0-9) Lymphocytes % 2 % (24-48) Monocytes % 3 % (0-10) Platelet Estimate Adequate (ADEQUATE) Sodium Level 134 mmol/L (136-145) Potassium Level 4.4 mmol/L (3.5-5.1) Chloride Level 102 mmol/L (98-107) Carbon Dioxide Level 21 mmol/L (21-32) Anion Gap 11 (6-14) Blood Urea Nitrogen 11 mg/dL (7-20) Creatinine 1.1 mg/dL (0.6-1.0) Estimated GFR (Cockcroft-Gault) 46.9 Glucose Level 105 mg/dL (70-99) Calcium Level 8.0 mg/dL (8.5-10.1) Magnesium Level 1.5 mg/dL (1.8-2.4) Triglycerides Level 56 mg/dL (0-150) Cholesterol Level 76 mg/dL (0-200) LDL Cholesterol, Calculated 32 mg/dL (0-100) VLDL Cholesterol, Calculated 11 mg/dL (0-40) Non-HDL Cholesterol Calculated 43 mg/dL (0-129) HDL Cholesterol 33 mg/dL (40-60) Cholesterol/HDL Ratio 2.3 Thyroid Stimulating Hormone (TSH) 1.579 uIU/mL (0.358-3.74) Laboratory Tests Test 02/03/20 11:16 02/03/20 17:10 02/04/20 05:40 Glucose (Fingerstick) 125 mg/dL (70-99) 109 mg/dL (70-99) White Blood Count 15.6 x10^3/uL (4.0-11.0) Red Blood Count 3.84 x10^6/uL (3.50-5.40) Hemoglobin 11.8 g/dL (12.0-15.5) Hematocrit 36.2 % (36.0-47.0) Mean Corpuscular Volume 94 fL (79-100) Mean Corpuscular Hemoglobin 31 pg (25-35) Mean Corpuscular Hemoglobin Concent 33 g/dL (31-37) Red Cell Distribution Width 14.1 % (11.5-14.5) Platelet Count 234 x10^3/uL (140-400) Neutrophils (%) (Auto) 86 % (31-73) Lymphocytes (%) (Auto) 3 % (24-48) Monocytes (%) (Auto) 11 % (0-9) Eosinophils (%) (Auto) 0 % (0-3) Basophils (%) (Auto) 0 % (0-3) Neutrophils # (Auto) 13.4 x10^3/uL (1.8-7.7) Lymphocytes # (Auto) 0.5 x10^3/uL (1.0-4.8) Monocytes # (Auto) 1.7 x10^3/uL (0.0-1.1) Eosinophils # (Auto) 0.0 x10^3/uL (0.0-0.7) Basophils # (Auto) 0.0 x10^3/uL (0.0-0.2) Segmented Neutrophils % 94 % (35-66) Band Neutrophils % 1 % (0-9) Lymphocytes % 2 % (24-48) Monocytes % 3 % (0-10) Platelet Estimate Adequate (ADEQUATE) Sodium Level 134 mmol/L (136-145) Potassium Level 4.4 mmol/L (3.5-5.1) Chloride Level 102 mmol/L (98-107) Carbon Dioxide Level 21 mmol/L (21-32) Anion Gap 11 (6-14) Blood Urea Nitrogen 11 mg/dL (7-20) Creatinine 1.1 mg/dL (0.6-1.0) Estimated GFR (Cockcroft-Gault) 46.9 Glucose Level 105 mg/dL (70-99) Calcium Level 8.0 mg/dL (8.5-10.1) Magnesium Level 1.5 mg/dL (1.8-2.4) Triglycerides Level 56 mg/dL (0-150) Cholesterol Level 76 mg/dL (0-200) LDL Cholesterol, Calculated 32 mg/dL (0-100) VLDL Cholesterol, Calculated 11 mg/dL (0-40) Non-HDL Cholesterol Calculated 43 mg/dL (0-129) HDL Cholesterol 33 mg/dL (40-60) Cholesterol/HDL Ratio 2.3 Thyroid Stimulating Hormone (TSH) 1.579 uIU/mL (0.358-3.74) Assessment/Plan supportive care Justicifation of Admission Dx: Justifications for Admission: Justification of Admission Dx: Yes Aspiration Pneumonia: Hemodynamic Instability NICOLE PAINTER MANAGEMENT DEPARTMENT CHAIR Feb 04, 2020 11:13
[2020-02-04] MEDS: DILTIAZEM HCL 125 MG in IV NORMAL SALINE 100ML 100 ML IV PRN ×2 (11:20→22:00)
--- NOTE | 2020-02-04 11:40 | NUR ---
SS following for discharge planning. SS reviewed pt chart and discussed with pt RN. Pt is from home and is currently requiring oxygen at two liters nasal canula. COVID19 negative. Pt had extensive surgery on 02/03/2020. 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 SS will continue to follow for discharge planning.
--- NOTE | 2020-02-04 13:53 | EKG ---
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
[2020-02-04] MEDS: MORPHINE SULFATE 30 ML IV PRN (15:31)
[2020-02-04] MEDS: IV NORMAL SALINE 1000ML BAG 1,000 ML IV SCH (21:32)
[2020-02-04] MEDS: LATANOPROST 0.005% OPHTH SOLUTION 2.5ML BOTTLE. OU SCH (21:33)
[2020-02-05] VITALS (21 sets, daily range): BP systolic 101–143; BP diastolic 44–80
[2020-02-05 05:44] LABS: HEMATOCRIT 34.2 % (36.0-47.0); HEMOGLOBIN 11.2 g/dL (12.0-15.5); RED BLOOD COUNT 3.62 x10^6/uL (3.50-5.40); RED CELL DISTRIBUTION WIDTH 13.8 % (11.5-14.5); WHITE BLOOD COUNT 20.9 x10^3/uL (4.0-11.0)
[2020-02-05] MEDS: METOPROLOL TARTRATE 5 MG/5 ML VIAL. IVP SCH ×3 (05:46→18:27)
[2020-02-05 05:51] LABS: CALCIUM 8.2 mg/dL (8.5-10.1); GFR 52.3; MAGNESIUM 1.7 mg/dL (1.8-2.4)
[2020-02-05] MEDS: amLODIPine BESYLATE 5 MG TABLET PO SCH (07:44)
[2020-02-05] MEDS: DILTIAZEM HCL 125 MG in IV NORMAL SALINE 100ML 100 ML IV PRN ×3 (07:57→23:22)
[2020-02-05] MEDS: IV RINGERS,LACTATED 1000ML 1,000 ML IV SCH ×2 (08:53→19:00)
[2020-02-05] MEDS: ATORVASTATIN CALCIUM 40 MG TABLET. PO SCH (09:00)
[2020-02-05] MEDS: MULTIVITAMIN with MINERAL TABLET. PO SCH (09:00)
[2020-02-05] MEDS: METOPROLOL TART IMMED RELEASE 50 MG TABLET. PO SCH ×2 (09:00→21:00)
[2020-02-05] MEDS: LOSARTAN POTASSIUM 50 MG TABLET. PO SCH (09:22)
[2020-02-05] MEDS: ENOXAPARIN 40 MG/0.4 ML SYRINGE. SQ SCH (09:58)
--- NOTE | 2020-02-05 10:50 | PDOC ---
SURGICAL PROGRESS NOTE DATE: 02/05/20 TIME: 10:49 Subjective resting ng bothersome pain managed no nausea Vital Signs Vital Signs Date Time Temp Pulse Resp B/P (MAP) Pulse Ox O2 Delivery O2 Flow Rate FiO2 02/05/20 09:22 104 111/47 02/05/20 09:00 16 97 Nasal Cannula 2.0 02/05/20 08:00 98.1 98.1 I&O Intake and Output 02/05/20 07:00 Intake Total 3219.4 ml Output Total 807 ml Balance 2412.4 ml Intake Oral 30 ml IV Total 3189.4 ml Output Urine Total 457 ml Gastric Drainage Total 200 ml Drainage Total 150 ml General: Alert, Oriented X3, Cooperative, No acute distress HEENT: Other (ng in place) Abdomen: Soft, Other (drain serosang) Labs Laboratory Tests Test 02/03/20 11:16 02/03/20 17:10 02/04/20 05:40 02/05/20 05:00 Glucose (Fingerstick) 125 mg/dL (70-99) 109 mg/dL (70-99) White Blood Count 15.6 x10^3/uL (4.0-11.0) 20.9 x10^3/uL (4.0-11.0) Red Blood Count 3.84 x10^6/uL (3.50-5.40) 3.62 x10^6/uL (3.50-5.40) Hemoglobin 11.8 g/dL (12.0-15.5) 11.2 g/dL (12.0-15.5) Hematocrit 36.2 % (36.0-47.0) 34.2 % (36.0-47.0) Mean Corpuscular Volume 94 fL (79-100) 95 fL (79-100) Mean Corpuscular Hemoglobin 31 pg (25-35) 31 pg (25-35) Mean Corpuscular Hemoglobin Concent 33 g/dL (31-37) 33 g/dL (31-37) Red Cell Distribution Width 14.1 % (11.5-14.5) 13.8 % (11.5-14.5) Platelet Count 234 x10^3/uL (140-400) 275 x10^3/uL (140-400) Neutrophils (%) (Auto) 86 % (31-73) Lymphocytes (%) (Auto) 3 % (24-48) Monocytes (%) (Auto) 11 % (0-9) Eosinophils (%) (Auto) 0 % (0-3) Basophils (%) (Auto) 0 % (0-3) Neutrophils # (Auto) 13.4 x10^3/uL (1.8-7.7) Lymphocytes # (Auto) 0.5 x10^3/uL (1.0-4.8) Monocytes # (Auto) 1.7 x10^3/uL (0.0-1.1) Eosinophils # (Auto) 0.0 x10^3/uL (0.0-0.7) Basophils # (Auto) 0.0 x10^3/uL (0.0-0.2) Segmented Neutrophils % 94 % (35-66) Band Neutrophils % 1 % (0-9) Lymphocytes % 2 % (24-48) Monocytes % 3 % (0-10) Platelet Estimate Adequate (ADEQUATE) Sodium Level 134 mmol/L (136-145) 137 mmol/L (136-145) Potassium Level 4.4 mmol/L (3.5-5.1) 4.0 mmol/L (3.5-5.1) Chloride Level 102 mmol/L (98-107) 103 mmol/L (98-107) Carbon Dioxide Level 21 mmol/L (21-32) 24 mmol/L (21-32) Anion Gap 11 (6-14) 10 (6-14) Blood Urea Nitrogen 11 mg/dL (7-20) 14 mg/dL (7-20) Creatinine 1.1 mg/dL (0.6-1.0) 1.0 mg/dL (0.6-1.0) Estimated GFR (Cockcroft-Gault) 46.9 52.3 Glucose Level 105 mg/dL (70-99) 89 mg/dL (70-99) Calcium Level 8.0 mg/dL (8.5-10.1) 8.2 mg/dL (8.5-10.1) Magnesium Level 1.5 mg/dL (1.8-2.4) 1.7 mg/dL (1.8-2.4) Triglycerides Level 56 mg/dL (0-150) Cholesterol Level 76 mg/dL (0-200) LDL Cholesterol, Calculated 32 mg/dL (0-100) VLDL Cholesterol, Calculated 11 mg/dL (0-40) Non-HDL Cholesterol Calculated 43 mg/dL (0-129) HDL Cholesterol 33 mg/dL (40-60) Cholesterol/HDL Ratio 2.3 Thyroid Stimulating Hormone (TSH) 1.579 uIU/mL (0.358-3.74) Laboratory Tests Test 02/05/20 05:00 White Blood Count 20.9 x10^3/uL (4.0-11.0) Red Blood Count 3.62 x10^6/uL (3.50-5.40) Hemoglobin 11.2 g/dL (12.0-15.5) Hematocrit 34.2 % (36.0-47.0) Mean Corpuscular Volume 95 fL (79-100) Mean Corpuscular Hemoglobin 31 pg (25-35) Mean Corpuscular Hemoglobin Concent 33 g/dL (31-37) Red Cell Distribution Width 13.8 % (11.5-14.5) Platelet Count 275 x10^3/uL (140-400) Sodium Level 137 mmol/L (136-145) Potassium Level 4.0 mmol/L (3.5-5.1) Chloride Level 103 mmol/L (98-107) Carbon Dioxide Level 24 mmol/L (21-32) Anion Gap 10 (6-14) Blood Urea Nitrogen 14 mg/dL (7-20) Creatinine 1.0 mg/dL (0.6-1.0) Estimated GFR (Cockcroft-Gault) 52.3 Glucose Level 89 mg/dL (70-99) Calcium Level 8.2 mg/dL (8.5-10.1) Magnesium Level 1.7 mg/dL (1.8-2.4) Assessment/Plan supportive care will keep ng for now Justicifation of Admission Dx: Justifications for Admission: Justification of Admission Dx: Yes Aspiration Pneumonia: Hemodynamic Instability NICOLE PAINTER VENTILATING EXPERT Feb 05, 2020 10:50
--- NOTE | 2020-02-05 11:54 | PDOC ---
UMA HUMPHRIES MAINTENANCE TECHNICIAN 2ND SHIFT 02/05/20 1154: CARDIO Progress Notes Date and Time Date of Service 02/05/20 Time of Evaluation 1150 Subjective Subjective: Other (sleeping. family at beside ) Vitals Vitals Vital Signs Date Time Temp Pulse Resp B/P (MAP) Pulse Ox O2 Delivery O2 Flow Rate FiO2 02/05/20 11:00 110 20 120/56 (77) 98 Nasal Cannula 2.0 02/05/20 08:00 98.1 98.1 Weight Weight [ ] Input and Output Intake and Output Intake and Output 02/05/20 07:00 Intake Total 3219.4 ml Output Total 807 ml Balance 2412.4 ml Intake Oral 30 ml IV Total 3189.4 ml Output Urine Total 457 ml Gastric Drainage Total 200 ml Drainage Total 150 ml Laboratory Labs Laboratory Tests Test 02/05/20 05:00 White Blood Count 20.9 x10^3/uL (4.0-11.0) Red Blood Count 3.62 x10^6/uL (3.50-5.40) Hemoglobin 11.2 g/dL (12.0-15.5) Hematocrit 34.2 % (36.0-47.0) Mean Corpuscular Volume 95 fL (79-100) Mean Corpuscular Hemoglobin 31 pg (25-35) Mean Corpuscular Hemoglobin Concent 33 g/dL (31-37) Red Cell Distribution Width 13.8 % (11.5-14.5) Platelet Count 275 x10^3/uL (140-400) Sodium Level 137 mmol/L (136-145) Potassium Level 4.0 mmol/L (3.5-5.1) Chloride Level 103 mmol/L (98-107) Carbon Dioxide Level 24 mmol/L (21-32) Anion Gap 10 (6-14) Blood Urea Nitrogen 14 mg/dL (7-20) Creatinine 1.0 mg/dL (0.6-1.0) Estimated GFR (Cockcroft-Gault) 52.3 Glucose Level 89 mg/dL (70-99) Calcium Level 8.2 mg/dL (8.5-10.1) Magnesium Level 1.7 mg/dL (1.8-2.4) Physical Exam HEENT: Neck Supple W Full Motion, Other (NGT) Chest: Symmetric LUNGS: Clear to Auscultation, Other (diminished bases) Heart: irregularly irregular (AFIB rate controlled ) Abdomen: Other (SILVIA drain intact ) Extremities: Other (trace bilateral LE edema ) Neurology: other (sleeping ) Assessment Assessment 1. Colon CA s/p colon resection 03/2019; recurrent with metastatic disease. 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 POD#1 2. AFIB; newly diagnosed. currently in AFIB with RVR. 3. CAD s/p PCI/stenting; clinically stable. Recent echo with preserved LV systolic function 4. Hypertension; controlled 5. Hyperlipidemia; statin therapy 6. Diabetes, II; as per PCP 7. CKD; Cr stable 8. Hypomagnesemia Recommendations Remains NPO Continue Cardizem gtt for rate control Resume metoprolol when able to take PO Lovenox therapy. Resume Eliquis for stroke prophylaxis when a okay from a surgical standpoint Replace Mg Continue post-op management as per GS team Consider outpatient CV if she remains in AFIB Supportive care Justicifation of Admission Dx: Justifications for Admission: Justification of Admission Dx: Yes Aspiration Pneumonia: Hemodynamic Instability SHADY DELGADILLO MD 02/05/201943: CARDIO Progress Notes Assessment Assessment Patient seen and examined. Agree with HARD HAT DIVER's assessment and plan. Atrial fibrillation rate better controlled Continue Cardizem drip for rate control. Recent 2D echo showed normal LV systolic function. Start Eliquis for stroke prophylaxis when okay from surgical standpoint. We will consider outpatient cardioversion if she continues to be in atrial fibrillation. Continue postop care per general surgery team. UMA HUMPHRIES APRN Feb 05, 2020 11:54 SHADY DELGADILLO MD Feb 05, 2020 19:44
[2020-02-05] MEDS ORDERED: MAGNESIUM SULFATE 2GM 50 ML IV ONE (13:15)
--- NOTE | 2020-02-05 14:31 | NUR ---
SS following up with discharge planning. SS reviewed pt chart and discussed with pt RN. Pt is currently requiring oxygen. COVID19 negative. Pt NPO and on Cardizem drip. SS will continue to follow for discharge planning.
--- NOTE | 2020-02-05 15:08 | PATHOLOGY ---
Note [facility] Accession Number: [id number] TESTS RESULT FLAG UNITS REF RANGE LAB Clinician Provided Cytology Information No. of containers..01 Other (Miscellaneous) Source: 01 ASCITES DIAGNOSIS: 02 ASCITES NEGATIVE FOR MALIGNANT CELLS. SCANT CELLULARITY. CELLULAR DEGENERATION IS PRESENT. THIS INTERPRETATION INCLUDES EVALUATION OF A CELL BLOCK. COMMENT, PREDOMINANTLY BLOOD IS PRESENT. IF MALIGNANCY IS SUSPECTED SUGGEST REPEAT EVALUATION. Signed out by: 02 Thee Lee MD, Pathologist NPI- [id number] Performed by: 01 Niranjan Siddiqui, Electronics Processing Supervisor ([facility]) Gross description: 01 5ML, RED, 1 TP 1 CB /LCS 02/04/2020 1211 Local FLAG LEGEND: L-Low Normal,H-High Normal,LL-Alert Low,HH-Alert High <-Panic Low,>-Panic High,A-Abnormal,AA-Critical Abnormal Performed at: 01 [facility] [address] [place] [address] Sanchez Starks MD, [address] [address] Vitor Aguero MD, Specimen Comment: A courtesy copy of this report has been sent to [phone], [phone] Specimen Comment: [id number] Specimen Comment: Report sent to / DR CLAIRE Specimen Comment: A duplicate report has been generated due to demographic updates. Performed at: 01 [facility] [address], [place], [place] [id number] MD Sanchez Starks MD Phone: [phone]
--- NOTE | 2020-02-05 16:58 | PDOC ---
PROGRESS NOTES Date of Service: DATE: 02/05/20 TIME: 16:56 Chief Complaint Chief Complaint Assessment/Plan Recurrence of colon cancer with metastatic disease Hypertension Hyperlipidemia Coronary artery disease Diabetes mellitus Chronic renal insufficiency GERD History of A. fib History of heart attack Glaucoma Osteoarthritis TIA Duodenal ulcer Plan Resume home medications We will hold metformin in the inpatient setting will give cardizem Iv push if she is able to start oral diet she can have Cardizem PO, if not she may benefit from a Cardizem drip until oral route can be started Resume apixaban once approved by attending We will give 1 dose of Cardizem for rate control Thank you for allowing us to participate in the care of the patient Reassess in the a.m. Pain management via MATERIAL ANALYST pump DVT prophylaxis as per attending History of Present Illness History of Present Illness 02/03 Patient with uncontrolled heart rate, patient most likely will need a CCB and good analgesia. Patient resting comfortably in no acute distress. NO chest pain no dyspnea reported. 02/04 Patient with no acute events reported overnight, continues to need cardizem drip, no complaints during my visit. Vitals Vitals Vital Signs Date Time Temp Pulse Resp B/P (MAP) Pulse Ox O2 Delivery O2 Flow Rate FiO2 02/05/20 16:00 98.4 100 143/60 (87) 94 Nasal Cannula 1.0 98.4 02/05/20 11:00 20 Physical Exam General: Alert, Oriented X3, Cooperative, No acute distress Heart: Other (AFIB with RVR) Lungs: Clear Abdomen: Soft, Other (drain serosang) Extremities: No edema, Normal pulses Skin: No significant lesion Labs LABS Laboratory Tests Test 02/05/20 05:00 White Blood Count 20.9 x10^3/uL (4.0-11.0) Red Blood Count 3.62 x10^6/uL (3.50-5.40) Hemoglobin 11.2 g/dL (12.0-15.5) Hematocrit 34.2 % (36.0-47.0) Mean Corpuscular Volume 95 fL (79-100) Mean Corpuscular Hemoglobin 31 pg (25-35) Mean Corpuscular Hemoglobin Concent 33 g/dL (31-37) Red Cell Distribution Width 13.8 % (11.5-14.5) Platelet Count 275 x10^3/uL (140-400) Sodium Level 137 mmol/L (136-145) Potassium Level 4.0 mmol/L (3.5-5.1) Chloride Level 103 mmol/L (98-107) Carbon Dioxide Level 24 mmol/L (21-32) Anion Gap 10 (6-14) Blood Urea Nitrogen 14 mg/dL (7-20) Creatinine 1.0 mg/dL (0.6-1.0) Estimated GFR (Cockcroft-Gault) 52.3 Glucose Level 89 mg/dL (70-99) Calcium Level 8.2 mg/dL (8.5-10.1) Magnesium Level 1.7 mg/dL (1.8-2.4) Comment Review of Relevant I have reviewed the following items goldy (where applicable) has been applied. Labs Laboratory Tests Test 02/03/20 17:10 02/04/20 05:40 02/05/20 05:00 Glucose (Fingerstick) 109 mg/dL (70-99) White Blood Count 15.6 x10^3/uL (4.0-11.0) 20.9 x10^3/uL (4.0-11.0) Red Blood Count 3.84 x10^6/uL (3.50-5.40) 3.62 x10^6/uL (3.50-5.40) Hemoglobin 11.8 g/dL (12.0-15.5) 11.2 g/dL (12.0-15.5) Hematocrit 36.2 % (36.0-47.0) 34.2 % (36.0-47.0) Mean Corpuscular Volume 94 fL (79-100) 95 fL (79-100) Mean Corpuscular Hemoglobin 31 pg (25-35) 31 pg (25-35) Mean Corpuscular Hemoglobin Concent 33 g/dL (31-37) 33 g/dL (31-37) Red Cell Distribution Width 14.1 % (11.5-14.5) 13.8 % (11.5-14.5) Platelet Count 234 x10^3/uL (140-400) 275 x10^3/uL (140-400) Neutrophils (%) (Auto) 86 % (31-73) Lymphocytes (%) (Auto) 3 % (24-48) Monocytes (%) (Auto) 11 % (0-9) Eosinophils (%) (Auto) 0 % (0-3) Basophils (%) (Auto) 0 % (0-3) Neutrophils # (Auto) 13.4 x10^3/uL (1.8-7.7) Lymphocytes # (Auto) 0.5 x10^3/uL (1.0-4.8) Monocytes # (Auto) 1.7 x10^3/uL (0.0-1.1) Eosinophils # (Auto) 0.0 x10^3/uL (0.0-0.7) Basophils # (Auto) 0.0 x10^3/uL (0.0-0.2) Segmented Neutrophils % 94 % (35-66) Band Neutrophils % 1 % (0-9) Lymphocytes % 2 % (24-48) Monocytes % 3 % (0-10) Platelet Estimate Adequate (ADEQUATE) Sodium Level 134 mmol/L (136-145) 137 mmol/L (136-145) Potassium Level 4.4 mmol/L (3.5-5.1) 4.0 mmol/L (3.5-5.1) Chloride Level 102 mmol/L (98-107) 103 mmol/L (98-107) Carbon Dioxide Level 21 mmol/L (21-32) 24 mmol/L (21-32) Anion Gap 11 (6-14) 10 (6-14) Blood Urea Nitrogen 11 mg/dL (7-20) 14 mg/dL (7-20) Creatinine 1.1 mg/dL (0.6-1.0) 1.0 mg/dL (0.6-1.0) Estimated GFR (Cockcroft-Gault) 46.9 52.3 Glucose Level 105 mg/dL (70-99) 89 mg/dL (70-99) Calcium Level 8.0 mg/dL (8.5-10.1) 8.2 mg/dL (8.5-10.1) Magnesium Level 1.5 mg/dL (1.8-2.4) 1.7 mg/dL (1.8-2.4) Triglycerides Level 56 mg/dL (0-150) Cholesterol Level 76 mg/dL (0-200) LDL Cholesterol, Calculated 32 mg/dL (0-100) VLDL Cholesterol, Calculated 11 mg/dL (0-40) Non-HDL Cholesterol Calculated 43 mg/dL (0-129) HDL Cholesterol 33 mg/dL (40-60) Cholesterol/HDL Ratio 2.3 Thyroid Stimulating Hormone (TSH) 1.579 uIU/mL (0.358-3.74) Laboratory Tests Test 02/05/20 05:00 White Blood Count 20.9 x10^3/uL (4.0-11.0) Red Blood Count 3.62 x10^6/uL (3.50-5.40) Hemoglobin 11.2 g/dL (12.0-15.5) Hematocrit 34.2 % (36.0-47.0) Mean Corpuscular Volume 95 fL (79-100) Mean Corpuscular Hemoglobin 31 pg (25-35) Mean Corpuscular Hemoglobin Concent 33 g/dL (31-37) Red Cell Distribution Width 13.8 % (11.5-14.5) Platelet Count 275 x10^3/uL (140-400) Sodium Level 137 mmol/L (136-145) Potassium Level 4.0 mmol/L (3.5-5.1) Chloride Level 103 mmol/L (98-107) Carbon Dioxide Level 24 mmol/L (21-32) Anion Gap 10 (6-14) Blood Urea Nitrogen 14 mg/dL (7-20) Creatinine 1.0 mg/dL (0.6-1.0) Estimated GFR (Cockcroft-Gault) 52.3 Glucose Level 89 mg/dL (70-99) Calcium Level 8.2 mg/dL (8.5-10.1) Magnesium Level 1.7 mg/dL (1.8-2.4) Medications Current Medications Ondansetron HCl (Zofran) 4 mg PRN Q6HRS PRN IV NAUSEA/VOMITING; Start 02/03/20 at 07:00; Stop 02/03/20 at 20:00; Status DC Fentanyl Citrate (Fentanyl 2ml Vial) 25 mcg PRN Q5MIN PRN IV MILD PAIN 1-3; Start 02/03/20 at 07:00; Stop 02/03/20 at 20:00; Status DC Fentanyl Citrate (Fentanyl 2ml Vial) 50 mcg PRN Q5MIN PRN IV MODERATE TO SEVERE PAIN; Start 02/03/20 at 07:00; Stop 02/03/20 at 20:00; Status DC Morphine Sulfate (Morphine Sulfate) 1 mg PRN Q10MIN PRN IV SEVERE PAIN 7-10; Start 02/03/20 at 07:00; Stop 02/03/20 at 20:00; Status DC Ringer's Solution 1,000 ml @ 30 mls/hr Q24H IV Last administered on 02/03/20at 17:04; Start 02/03/20 at 07:00; Stop 02/03/20 at 18:59; Status DC Lidocaine HCl (Xylocaine-Mpf 1% 2ml Vial) 2 ml PRN 1X PRN ID PRIOR TO IV START; Start 02/03/20 at 07:00; Stop 02/03/20 at 20:00; Status DC Hydromorphone HCl (Dilaudid) 0.5 mg PRN Q10MIN PRN IV SEV PAIN, Second choice; Start 02/03/20 at 07:00; Stop 02/03/20 at 20:00; Status DC Prochlorperazine Edisylate (Compazine) 5 mg PACU PRN PRN IV NAUSEA, MRX1; Start 02/03/20 at 07:00; Stop 02/03/20 at 20:00; Status DC Cefoxitin Sodium (Mefoxin) 2 gm 1X PREOP PRN IVP PRIOR TO SURGERY Last administered on 02/03/20at 13:09; Start 02/03/20 at 08:00; Stop 02/04/20 at 10:52; Status DC Cefoxitin Sodium (Mefoxin) 1 gm STK-MED ONCE IVP ; Start 02/03/20 at 10:31; Stop 02/03/20 at 10:31; Status DC Lidocaine HCl (Lidocaine Pf 2% Vial) 5 ml STK-MED ONCE .ROUTE ; Start 02/03/20 at 10:55; Stop 02/03/20 at 10:55; Status DC Etomidate (Amidate) 20 mg STK-MED ONCE IV ; Start 02/03/20 at 10:55; Stop 02/03/20 at 10:55; Status DC Dexamethasone Sodium Phosphate (Decadron) 4 mg STK-MED ONCE .ROUTE ; Start 02/03/20 at 10:55; Stop 02/03/20 at 10:55; Status DC Rocuronium Crumpton (Zemuron) 100 mg STK-MED ONCE .ROUTE ; Start 02/03/20 at 10:55; Stop 02/03/20 at 10:55; Status DC Fentanyl Citrate (Fentanyl 2ml Vial) 100 mcg STK-MED ONCE .ROUTE ; Start 02/03/20 at 10:55; Stop 02/03/20 at 10:55; Status DC Dexamethasone Sodium Phosphate (Decadron) 4 mg STK-MED ONCE .ROUTE ; Start 02/03/20 at 10:58; Stop 02/03/20 at 10:59; Status DC Ondansetron HCl (Zofran) 4 mg STK-MED ONCE .ROUTE ; Start 02/03/20 at 10:58; Stop 02/03/20 at 10:59; Status DC Phenylephrine HCl (Pierre-Synephrine Inj) 10 mg STK-MED ONCE .ROUTE ; Start 02/03/20 at 10:59; Stop 02/03/20 at 10:59; Status DC Insulin Human Lispro (HumaLOG VIAL for OP,RR ONLY) 0-10 units PRN Q1HR PRN SQ PER PROTOCOL Last administered on 02/03/20at 11:37; Start 02/03/20 at 11:30; Stop 02/04/20 at 11:29; Status DC Bupivacaine HCl/ Epinephrine Bitart (Sensorcain-Epi 0.5%-1:075133 Mpf) 30 ml STK-MED ONCE .ROUTE Last administered on 02/03/20at 13:37; Start 02/03/20 at 13:34; Stop 02/03/20 at 13:34; Status DC Cellulose (Surgicel Hemostat 4x8) 1 each STK-MED ONCE .ROUTE Last administered on 02/03/20at 15:00; Start 02/03/20 at 14:35; Stop 02/03/20 at 14:35; Status DC Neostigmine Crumpton (Neostigmine Methylsulfate) 5 mg STK-MED ONCE .ROUTE ; Start 02/03/20 at 14:38; Stop 02/03/20 at 14:38; Status DC Glycopyrrolate (Robinul) 1 mg STK-MED ONCE .ROUTE ; Start 02/03/20 at 14:38; Stop 02/03/20 at 14:38; Status DC Ketamine HCl (Ketamine) 50 mg STK-MED ONCE .ROUTE ; Start 02/03/20 at 15:11; Stop 02/03/20 at 15:11; Status DC Sevoflurane (Ultane) 90 ml STK-MED ONCE IH ; Start 02/03/20 at 15:24; Stop 02/03/20 at 15:24; Status DC Enoxaparin Sodium (Lovenox 40mg Syringe) 40 mg Q12HR SQ Last administered on 02/04/20at 09:52; Start 02/03/20 at 21:00; Stop 02/04/20 at 10:53; Status DC Sodium Chloride (Normal Saline Flush) 3 ml QSHIFT PRN IV AFTER MEDS AND BLOOD DRAWS; Start 02/03/20 at 17:00 Ringer's Solution 1,000 ml @ 100 mls/hr Q10H IV Last administered on 02/05/20at 08:53; Start 02/03/20 at 17:00 Naloxone HCl (Narcan) 0.4 mg PRN Q2MIN PRN IV SEE INSTRUCTIONS; Start 02/03/20 at 17:00 Sodium Chloride 1,000 ml @ 25 mls/hr Q24H IV Last administered on 02/04/20at 21:32; Start 02/03/20 at 17:00 Morphine Sulfate 30 ml @ 0 mls/hr CONT PRN PRN IV PER PROTOCOL Last administered on 02/04/20at 15:31; Start 02/03/20 at 17:00 Ondansetron HCl (Zofran) 4 mg PRN Q6HRS PRN IVP NAUESA, 1ST CHOICE; Start 02/03/20 at 17:00 Amlodipine Besylate (Norvasc) 5 mg DAILY08 PO ; Start 02/04/20 at 08:00 Atorvastatin Calcium (Lipitor) 40 mg QODAY PO ; Start 02/05/20 at 09:00 Famotidine (Pepcid) 20 mg PRN QHS PRN PO INDIGESTION; Start 02/03/20 at 17:15 Latanoprost (Xalatan) 1 drop QHS OU Last administered on 02/04/20at 21:33; Start 02/03/20 at 21:00 Metformin HCl (Glucophage) 250 mg BIDWMEALS PO ; Start 02/04/20 at 08:00; Stop 02/03/20 at 20:19; Status DC Losartan Potassium (Cozaar) 100 mg DAILY PO ; Start 02/04/20 at 09:00 Metoprolol Tartrate (Lopressor) 100 mg BID PO ; Start 02/03/20 at 21:00 Multivitamins (Thera M Plus) 1 tab DAILY PO ; Start 02/04/20 at 09:00 Ondansetron HCl (Zofran Odt) 8 mg PRN BID PRN PO NAUSEA/VOMITING; Start 02/03/20 at 17:30 Morphine Sulfate 30 ml @ As Directed STK-MED ONCE IV ; Start 02/03/20 at 17:11; Stop 02/03/20 at 17:12; Status DC Metoprolol Tartrate (Lopressor Vial) 5 mg Q6HRS IVP Last administered on 02/05/20at 12:20; Start 02/03/20 at 21:00 Diltiazem HCl (Cardizem Iv Push) 10 mg 1X ONCE IVP Last administered on 02/03/20at 20:51; Start 02/03/20 at 21:00; Stop 02/03/20 at 21:01; Status DC Diltiazem HCl (Cardizem Iv Push) 10 mg 1X ONCE IVP Last administered on 02/04/20at 08:08; Start 02/04/20 at 07:00; Stop 02/04/20 at 07:01; Status DC Diltiazem HCl (Cardizem 24hr Cd) 180 mg DAILY PO ; Start 02/04/20 at 09:00; Stop 02/04/20 at 13:17; Status DC Diltiazem HCl 125 mg/Sodium Chloride 125 ml @ 5 mls/hr CONT PRN IV SEE I/O RECORD Last administered on 02/05/20at 16:27; Start 02/04/20 at 09:45 Enoxaparin Sodium (Lovenox 40mg Syringe) 40 mg DAILY SQ Last administered on 02/05/20at 09:58; Start 02/05/20 at 09:00 Magnesium Sulfate 50 ml @ 25 mls/hr 1X ONCE IV Last administered on 02/05/20at 16:27; Start 02/05/20 at 13:15; Stop 02/05/20 at 15:14; Status DC Active Scripts Active Reported Zofran (Ondansetron Hcl) 8 Mg Tablet 8 Mg PO BID PRN Oxycodone Hcl 20 Mg Tablet 10 Mg PO PRN PRN Centrum Silver Women Tablet (Multivits-Min/Iron/FA/Lutein) 1 Each Tablet 1 Each PO DAILY Pepcid (Famotidine) 20 Mg Tablet 20 Mg PO HS PRN Atorvastatin Calcium 40 Mg Tablet 1 Tab PO QODAY Eliquis (Apixaban) 2.5 Mg Tablet 2.5 Mg PO BID Metoprolol Tartrate 100 Mg Tablet 1 Tab PO BID LAST DOSE GIVEN: DATE:08/30/16 TIME:829 Amlodipine Besylate 5 Mg Tablet 1 Tab PO DAILY08 Last dose given: 8:30 a.m. Next dose due: 08-30-16 8:30 a.m. Latanoprost 2.5 Ml Drops 1 Drop EACHEYE QHS Last dose given: 08-31-16 9:00 p.m. Next dose due: tonight Losartan Potassium 100 Mg Tablet 1 Tab PO DAILY Last dose given: 8:30 a.m. Next dose due: 08-30-16 8:30 a.m. Metformin Hcl 500 Mg Tablet 250 Mg PO BIDWMEALS Last dose given: 09/01/16 8:30 a.m. Next dose due: tonight Vitals/I & O Vital Sign - Last 24 Hours 02/04/20 02/04/20 02/04/20 02/04/20 17:00 17:37 18:00 19:00 Pulse 112 112 98 114 Resp 12 12 14 B/P (MAP) 108/54 (72) 108/54 100/48 (65) 112/57 (75) Pulse Ox 97 98 95 O2 Delivery Nasal Cannula Nasal Cannula Nasal Cannula O2 Flow Rate 2.0 2.0 2.0 02/04/20 02/04/20 02/04/20 02/04/20 20:00 20:00 21:00 22:00 Temp 97.6 97.6 Pulse 126 114 110 Resp 14 14 14 B/P (MAP) 126/70 (88) 112/57 (75) 109/51 (70) Pulse Ox 95 95 97 O2 Delivery Nasal Cannula Nasal Cannula Nasal Cannula Nasal Cannula O2 Flow Rate 2.0 2.0 2.0 2.0 02/04/20 02/04/20 02/04/20 02/05/20 23:00 23:51 23:59 00:00 Temp 97.7 97.7 Pulse 118 118 115 Resp 14 14 B/P (MAP) 120/80 (93) 120/80 120/80 (93) Pulse Ox 97 97 O2 Delivery Nasal Cannula Nasal Cannula Nasal Cannula O2 Flow Rate 2.0 2.0 2.0 02/05/20 02/05/20 02/05/20 02/05/20 01:00 02:00 03:00 04:00 Pulse 109 106 92 Resp 14 14 14 B/P (MAP) 101/44 (63) 106/80 (89) 115/66 (82) Pulse Ox 97 96 95 O2 Delivery Nasal Cannula Nasal Cannula Nasal Cannula Nasal Cannula O2 Flow Rate 2.0 2.0 2.0 2.0 02/05/20 02/05/20 02/05/20 02/05/20 04:00 05:00 05:46 06:00 Temp 98.1 98.1 Pulse 124 114 114 104 Resp 14 14 14 B/P (MAP) 108/61 (77) 106/56 (73) 106/56 111/47 (68) Pulse Ox 96 97 97 O2 Delivery Nasal Cannula Nasal Cannula Nasal Cannula O2 Flow Rate 2.0 2.0 2.0 02/05/20 02/05/20 02/05/20 02/05/20 07:00 07:44 08:00 08:00 Temp 98.1 98.1 98.1 98.1 Pulse 104 104 105 Resp 16 B/P (MAP) 118/60 (79) 111/47 122/55 (77) Pulse Ox 96 97 O2 Delivery Nasal Cannula Nasal Cannula Nasal Cannula O2 Flow Rate 2.0 2.0 2.0 02/05/20 02/05/20 02/05/20 02/05/20 09:00 09:00 09:22 10:00 Pulse 97 104 104 106 Resp 16 18 B/P (MAP) 122/56 (78) 111/47 111/47 124/58 (80) Pulse Ox 97 96 O2 Delivery Nasal Cannula Nasal Cannula O2 Flow Rate 2.0 2.0 02/05/20 02/05/20 02/05/20 02/05/20 11:00 12:00 12:00 12:20 Temp 98.2 98.2 Pulse 110 110 110 Resp 20 B/P (MAP) 120/56 (77) 124/62 (82) 126/62 Pulse Ox 98 92 O2 Delivery Nasal Cannula Nasal Cannula Nasal Cannula O2 Flow Rate 2.0 0.5 0.5 02/05/20 16:00 Temp 98.4 98.4 Pulse 100 B/P (MAP) 143/60 (87) Pulse Ox 94 O2 Delivery Nasal Cannula O2 Flow Rate 1.0 Intake and Output 02/04/20 02/04/20 02/05/20 14:59 22:59 06:59 Intake Total 690.9 ml 969.9 ml 1528.6 ml Output Total 172 ml 360 ml 295 ml Balance 518.9 ml 609.9 ml 1233.6 ml Nutrition Consultation Dietary Evaluation: Recommendations by RD: Dietary education by RD, Increase Calorie Intake, Protein supplementation Comments: REC advance diet within next 24 - 48 hrs or as able per surgery, goal diet ADA/cardiac w/glucerna (strawberry) w/breakfast and lunch Expected Outcomes/Goals: diet advancement Malnutrition Findings: Food and Nutrition Intake (Sev: <50% est energy req 5days Weight Status: Appropriate Justicifation of Admission Dx: Justifications for Admission: Justification of Admission Dx: Yes Aspiration Pneumonia: Hemodynamic Instability AMOR MONTOYA MD Feb 05, 2020 16:58
[2020-02-05] MEDS: IV NORMAL SALINE 1000ML BAG 1,000 ML IV SCH (17:00)
[2020-02-05] MEDS: LATANOPROST 0.005% OPHTH SOLUTION 2.5ML BOTTLE. OU SCH (22:22)
[2020-02-06] VITALS (13 sets, daily range): BP systolic 98–140; BP diastolic 52–76
[2020-02-06] MEDS: METOPROLOL TARTRATE 5 MG/5 ML VIAL. IVP SCH ×2 (00:21→06:13)
[2020-02-06] MEDS: IV NORMAL SALINE 1000ML BAG 1,000 ML IV SCH (06:13)
[2020-02-06] MEDS: IV RINGERS,LACTATED 1000ML 1,000 ML IV SCH ×3 (06:23→21:01)
[2020-02-06] MEDS: amLODIPine BESYLATE 5 MG TABLET PO SCH ×2 (08:00→12:49)
[2020-02-06] MEDS: MULTIVITAMIN with MINERAL TABLET. PO SCH (08:01)
[2020-02-06] MEDS: METOPROLOL TART IMMED RELEASE 50 MG TABLET. PO SCH ×3 (08:01→20:58)
[2020-02-06] MEDS: LOSARTAN POTASSIUM 50 MG TABLET. PO SCH ×2 (08:01→12:49)
[2020-02-06] MEDS: ENOXAPARIN 40 MG/0.4 ML SYRINGE. SQ SCH (08:29)
--- NOTE | 2020-02-06 08:45 | PDOC ---
WENDI WINTER AUTOMOBILE RELOCATION ENGINEER 02/06/20 0845: CARDIO Progress Notes Date and Time Date of Service 02/06/2020 Time of Evaluation 1000 Subjective Subjective: No Chest Pain, No shortness of breath, No Palpitations, Other (abd surgery pain controlled) Vitals Vitals Vital Signs Date Time Temp Pulse Resp B/P (MAP) Pulse Ox O2 Delivery O2 Flow Rate FiO2 02/06/20 06:13 113 131/76 02/06/20 02:57 98.3 18 100 Nasal Cannula 1.0 98.3 Weight Weight [ ] Input and Output Intake and Output Intake and Output 02/06/20 07:00 Intake Total 4041 ml Output Total 1193 ml Balance 2848 ml Intake Oral 120 ml IV Total 3921 ml Output Urine Total 528 ml Gastric Drainage Total 150 ml Drainage Total 515 ml Physical Exam HEENT: Neck Supple W Full Motion, Other (NGT) Chest: Symmetric LUNGS: Clear to Auscultation, Other (diminished bases) Heart: irregularly irregular (AFIB rate controlled ) Abdomen: Other (SILVIA drain intact ) Extremities: Other (trace bilateral LE edema ) Neurology: other (sleeping ) Assessment Assessment 1. Colon CA s/p colon resection 03/2019; recurrent with metastatic disease. 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 POD#3 2. AFIB RVR; new. rate still at 100-130 3. CAD s/p PCI/stenting; clinically stable. Recent echo with preserved LV systolic function 4. Hypertension; controlled 5. Hyperlipidemia; statin therapy 6. Diabetes, II; as per PCP 7. CKD3 8. Hypomagnesemia: normalized Recommendations Remains NPO. Continue Cardizem gtt for rate control titrate up. DC when PO allowed then resume PO metoprolol. Dig IV x1 Lovenox therapy. Resume Eliquis for stroke prophylaxis when a okay from a surgical standpoint Continue post-op management as per GS team Consider outpatient CVN if she remains in AFIB Supportive care Justicifation of Admission Dx: Justifications for Admission: Justification of Admission Dx: Yes Aspiration Pneumonia: Hemodynamic Instability SHADY DELGADILLO MD 02/06/20 1100: CARDIO Progress Notes Assessment Assessment Patient seen and examined. Agree with PRIVATE HOUSEHOLD WORKER's assessment and plan. Atrial fibrillation rate better controlled but still slightly elevated Titrate Cardizem drip up for better rate control. Change to PO when able Recent 2D echo showed normal LV systolic function. Start Eliquis for stroke prophylaxis when okay from surgical standpoint. We will consider outpatient cardioversion if she continues to be in atrial fibrillation. Continue postop care per general surgery team WENDI WINTER APRN Feb 06, 2020 08:45 SHADY DELGADILLO MD Feb 06, 2020 11:00
[2020-02-06] MEDS: MORPHINE SULFATE 30 ML IV PRN (09:25)
[2020-02-06] MEDS ORDERED: DIGOXIN IV 500 MCG/2 ML AMPUL. IV ONE (09:45)
[2020-02-06] MEDS ORDERED: METOPROLOL TARTRATE 5 MG/5 ML VIAL. IVP PRN (09:45)
--- NOTE | 2020-02-06 10:06 | PDOC ---
SURGICAL PROGRESS NOTE DATE: 02/06/20 TIME: 10:05 Subjective ng clamped + flatus ng very bothersome Vital Signs Vital Signs Date Time Temp Pulse Resp B/P (MAP) Pulse Ox O2 Delivery O2 Flow Rate FiO2 02/06/20 08:00 Nasal Cannula 2.0 02/06/20 07:00 97.8 106 20 133/55 (81) 93 97.8 I&O Intake and Output 02/06/20 07:00 Intake Total 4041 ml Output Total 1193 ml Balance 2848 ml Intake Oral 120 ml IV Total 3921 ml Output Urine Total 528 ml Gastric Drainage Total 150 ml Drainage Total 515 ml General: Alert, Oriented X3, Cooperative HEENT: Other (ng in place) Abdomen: Soft, Other (dressing dry, aleksander serosang) Labs Laboratory Tests Test 02/05/20 05:00 White Blood Count 20.9 x10^3/uL (4.0-11.0) Red Blood Count 3.62 x10^6/uL (3.50-5.40) Hemoglobin 11.2 g/dL (12.0-15.5) Hematocrit 34.2 % (36.0-47.0) Mean Corpuscular Volume 95 fL (79-100) Mean Corpuscular Hemoglobin 31 pg (25-35) Mean Corpuscular Hemoglobin Concent 33 g/dL (31-37) Red Cell Distribution Width 13.8 % (11.5-14.5) Platelet Count 275 x10^3/uL (140-400) Sodium Level 137 mmol/L (136-145) Potassium Level 4.0 mmol/L (3.5-5.1) Chloride Level 103 mmol/L (98-107) Carbon Dioxide Level 24 mmol/L (21-32) Anion Gap 10 (6-14) Blood Urea Nitrogen 14 mg/dL (7-20) Creatinine 1.0 mg/dL (0.6-1.0) Estimated GFR (Cockcroft-Gault) 52.3 Glucose Level 89 mg/dL (70-99) Calcium Level 8.2 mg/dL (8.5-10.1) Magnesium Level 1.7 mg/dL (1.8-2.4) Assessment/Plan remove ng ok for meds po Justicifation of Admission Dx: Justifications for Admission: Justification of Admission Dx: Yes Aspiration Pneumonia: Hemodynamic Instability NICOLE PAINTER SPEAKING UNIT ASSEMBLER Feb 06, 2020 10:06
[2020-02-06 10:13] LABS: CALCIUM 8.3 mg/dL (8.5-10.1); CREATININE 0.8 mg/dL (0.6-1.0); GFR 67.7; MAGNESIUM 2.1 mg/dL (1.8-2.4); POTASSIUM 4.1 mmol/L (3.5-5.1)
--- NOTE | 2020-02-06 12:46 | NUR ---
SS following up with discharge planning. SS reviewed pt chart and discussed with pt RN. Pt is currently requiring oxygen. Pt on Cardizem drip and Morphine MULTIMEDIA SPECIALIST. Pt is NPO and has NG tube. COVID19 negative. SS will continue to follow for discharge planning.
--- NOTE | 2020-02-06 17:42 | PDOC ---
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 fib History of heart attack Glaucoma Osteoarthritis TIA Duodenal ulcer Plan Resume home medications We will hold metformin in the inpatient setting will give cardizem Iv push if she is able to start oral diet she can have Cardizem PO, if not she may benefit from a Cardizem drip until oral route can be started Resume apixaban once approved by attending We will give 1 dose of Cardizem for rate control Thank you for allowing us to participate in the care of the patient Reassess in the a.m. Pain management via [employer] pump DVT prophylaxis as per attending History of Present Illness History of Present Illness 02/03 Patient with uncontrolled heart rate, patient most likely will need a CCB and good analgesia. Patient resting comfortably in no acute distress. NO chest pain no dyspnea reported. 02/04 Patient with no acute events reported overnight, continues to need cardizem drip, no complaints during my visit. 02/05 Patient in no acute distress. The patient's pain is well controlled, the patient is complaining of discomfort from the NG tube and hoping to get it discontinued later in the day. Patient relates to me that she has been passing gases, I have discussed this with the surgical attending ROBBIE Vitals Vitals Vital Signs Date Time Temp Pulse Resp B/P (MAP) Pulse Ox O2 Delivery O2 Flow Rate FiO2 02/06/20 15:00 98.1 77 20 118/73 (88) 92 Nasal Cannula 2.0 98.1 Physical Exam General: Alert, Oriented X3, Cooperative Heart: Other (AFIB with RVR) Lungs: Clear Abdomen: Soft, Other (dressing dry, aleksander serosang) Extremities: No edema, Normal pulses Skin: No significant lesion Labs LABS Laboratory Tests Test 02/06/20 09:28 Sodium Level 140 mmol/L (136-145) Potassium Level 4.1 mmol/L (3.5-5.1) Chloride Level 104 mmol/L (98-107) Carbon Dioxide Level 24 mmol/L (21-32) Anion Gap 12 (6-14) Blood Urea Nitrogen 14 mg/dL (7-20) Creatinine 0.8 mg/dL (0.6-1.0) Estimated GFR (Cockcroft-Gault) 67.7 Glucose Level 102 mg/dL (70-99) Calcium Level 8.3 mg/dL (8.5-10.1) Magnesium Level 2.1 mg/dL (1.8-2.4) Comment Review of Relevant I have reviewed the following items goldy (where applicable) has been applied. Labs Laboratory Tests Test 02/05/20 05:00 02/06/20 09:28 White Blood Count 20.9 x10^3/uL (4.0-11.0) Red Blood Count 3.62 x10^6/uL (3.50-5.40) Hemoglobin 11.2 g/dL (12.0-15.5) Hematocrit 34.2 % (36.0-47.0) Mean Corpuscular Volume 95 fL (79-100) Mean Corpuscular Hemoglobin 31 pg (25-35) Mean Corpuscular Hemoglobin Concent 33 g/dL (31-37) Red Cell Distribution Width 13.8 % (11.5-14.5) Platelet Count 275 x10^3/uL (140-400) Sodium Level 137 mmol/L (136-145) 140 mmol/L (136-145) Potassium Level 4.0 mmol/L (3.5-5.1) 4.1 mmol/L (3.5-5.1) Chloride Level 103 mmol/L (98-107) 104 mmol/L (98-107) Carbon Dioxide Level 24 mmol/L (21-32) 24 mmol/L (21-32) Anion Gap 10 (6-14) 12 (6-14) Blood Urea Nitrogen 14 mg/dL (7-20) 14 mg/dL (7-20) Creatinine 1.0 mg/dL (0.6-1.0) 0.8 mg/dL (0.6-1.0) Estimated GFR (Cockcroft-Gault) 52.3 67.7 Glucose Level 89 mg/dL (70-99) 102 mg/dL (70-99) Calcium Level 8.2 mg/dL (8.5-10.1) 8.3 mg/dL (8.5-10.1) Magnesium Level 1.7 mg/dL (1.8-2.4) 2.1 mg/dL (1.8-2.4) Laboratory Tests Test 02/06/20 09:28 Sodium Level 140 mmol/L (136-145) Potassium Level 4.1 mmol/L (3.5-5.1) Chloride Level 104 mmol/L (98-107) Carbon Dioxide Level 24 mmol/L (21-32) Anion Gap 12 (6-14) Blood Urea Nitrogen 14 mg/dL (7-20) Creatinine 0.8 mg/dL (0.6-1.0) Estimated GFR (Cockcroft-Gault) 67.7 Glucose Level 102 mg/dL (70-99) Calcium Level 8.3 mg/dL (8.5-10.1) Magnesium Level 2.1 mg/dL (1.8-2.4) Medications Current Medications Ondansetron HCl (Zofran) 4 mg PRN Q6HRS PRN IV NAUSEA/VOMITING; Start 02/03/20 at 07:00; Stop 02/03/20 at 20:00; Status DC Fentanyl Citrate (Fentanyl 2ml Vial) 25 mcg PRN Q5MIN PRN IV MILD PAIN 1-3; Start 02/03/20 at 07:00; Stop 02/03/20 at 20:00; Status DC Fentanyl Citrate (Fentanyl 2ml Vial) 50 mcg PRN Q5MIN PRN IV MODERATE TO SEVERE PAIN; Start 02/03/20 at 07:00; Stop 02/03/20 at 20:00; Status DC Morphine Sulfate (Morphine Sulfate) 1 mg PRN Q10MIN PRN IV SEVERE PAIN 7-10; Start 02/03/20 at 07:00; Stop 02/03/20 at 20:00; Status DC Ringer's Solution 1,000 ml @ 30 mls/hr Q24H IV Last administered on 02/03/20at 17:04; Start 02/03/20 at 07:00; Stop 02/03/20 at 18:59; Status DC Lidocaine HCl (Xylocaine-Mpf 1% 2ml Vial) 2 ml PRN 1X PRN ID PRIOR TO IV START; Start 02/03/20 at 07:00; Stop 02/03/20 at 20:00; Status DC Hydromorphone HCl (Dilaudid) 0.5 mg PRN Q10MIN PRN IV SEV PAIN, Second choice; Start 02/03/20 at 07:00; Stop 02/03/20 at 20:00; Status DC Prochlorperazine Edisylate (Compazine) 5 mg PACU PRN PRN IV NAUSEA, MRX1; Start 02/03/20 at 07:00; Stop 02/03/20 at 20:00; Status DC Cefoxitin Sodium (Mefoxin) 2 gm 1X PREOP PRN IVP PRIOR TO SURGERY Last administered on 02/03/20at 13:09; Start 02/03/20 at 08:00; Stop 02/04/20 at 10:52; Status DC Cefoxitin Sodium (Mefoxin) 1 gm STK-MED ONCE IVP ; Start 02/03/20 at 10:31; Stop 02/03/20 at 10:31; Status DC Lidocaine HCl (Lidocaine Pf 2% Vial) 5 ml STK-MED ONCE .ROUTE ; Start 02/03/20 at 10:55; Stop 02/03/20 at 10:55; Status DC Etomidate (Amidate) 20 mg STK-MED ONCE IV ; Start 02/03/20 at 10:55; Stop 02/03/20 at 10:55; Status DC Dexamethasone Sodium Phosphate (Decadron) 4 mg STK-MED ONCE .ROUTE ; Start 02/03/20 at 10:55; Stop 02/03/20 at 10:55; Status DC Rocuronium Dunlow (Zemuron) 100 mg STK-MED ONCE .ROUTE ; Start 02/03/20 at 10:55; Stop 02/03/20 at 10:55; Status DC Fentanyl Citrate (Fentanyl 2ml Vial) 100 mcg STK-MED ONCE .ROUTE ; Start 02/03/20 at 10:55; Stop 02/03/20 at 10:55; Status DC Dexamethasone Sodium Phosphate (Decadron) 4 mg STK-MED ONCE .ROUTE ; Start 02/03/20 at 10:58; Stop 02/03/20 at 10:59; Status DC Ondansetron HCl (Zofran) 4 mg STK-MED ONCE .ROUTE ; Start 02/03/20 at 10:58; Stop 02/03/20 at 10:59; Status DC Phenylephrine HCl (Pierre-Synephrine Inj) 10 mg STK-MED ONCE .ROUTE ; Start 02/03/20 at 10:59; Stop 02/03/20 at 10:59; Status DC Insulin Human Lispro (HumaLOG VIAL for OP,RR ONLY) 0-10 units PRN Q1HR PRN SQ PER PROTOCOL Last administered on 02/03/20at 11:37; Start 02/03/20 at 11:30; Stop 02/04/20 at 11:29; Status DC Bupivacaine HCl/ Epinephrine Bitart (Sensorcain-Epi 0.5%-1:[id number] Mpf) 30 ml STK-MED ONCE .ROUTE Last administered on 02/03/20at 13:37; Start 02/03/20 at 13:34; Stop 02/03/20 at 13:34; Status DC Cellulose (Surgicel Hemostat 4x8) 1 each STK-MED ONCE .ROUTE Last administered on 02/03/20at 15:00; Start 02/03/20 at 14:35; Stop 02/03/20 at 14:35; Status DC Neostigmine Dunlow (Neostigmine Methylsulfate) 5 mg STK-MED ONCE .ROUTE ; Start 02/03/20 at 14:38; Stop 02/03/20 at 14:38; Status DC Glycopyrrolate (Robinul) 1 mg STK-MED ONCE .ROUTE ; Start 02/03/20 at 14:38; Stop 02/03/20 at 14:38; Status DC Ketamine HCl (Ketamine) 50 mg STK-MED ONCE .ROUTE ; Start 02/03/20 at 15:11; Stop 02/03/20 at 15:11; Status DC Sevoflurane (Ultane) 90 ml STK-MED ONCE IH ; Start 02/03/20 at 15:24; Stop 02/03/20 at 15:24; Status DC Enoxaparin Sodium (Lovenox 40mg Syringe) 40 mg Q12HR SQ Last administered on 02/04/20at 09:52; Start 02/03/20 at 21:00; Stop 02/04/20 at 10:53; Status DC Sodium Chloride (Normal Saline Flush) 3 ml QSHIFT PRN IV AFTER MEDS AND BLOOD DRAWS; Start 02/03/20 at 17:00 Ringer's Solution 1,000 ml @ 100 mls/hr Q10H IV Last administered on 02/06/20at 06:23; Start 02/03/20 at 17:00 Naloxone HCl (Narcan) 0.4 mg PRN Q2MIN PRN IV SEE INSTRUCTIONS; Start 02/03/20 at 17:00 Sodium Chloride 1,000 ml @ 25 mls/hr Q24H IV Last administered on 02/06/20at 06:13; Start 02/03/20 at 17:00 Morphine Sulfate 30 ml @ 0 mls/hr CONT PRN PRN IV PER PROTOCOL Last administered on 02/06/20at 09:25; Start 02/03/20 at 17:00 Ondansetron HCl (Zofran) 4 mg PRN Q6HRS PRN IVP FEMI, 1ST CHOICE; Start 02/03/20 at 17:00 Amlodipine Besylate (Norvasc) 5 mg DAILY08 PO Last administered on 02/06/20at 12:49; Start 02/04/20 at 08:00 Atorvastatin Calcium (Lipitor) 40 mg QODAY PO ; Start 02/05/20 at 09:00 Famotidine (Pepcid) 20 mg PRN QHS PRN PO INDIGESTION; Start 02/03/20 at 17:15 Latanoprost (Xalatan) 1 drop QHS OU Last administered on 02/05/20at 22:22; Start 02/03/20 at 21:00 Metformin HCl (Glucophage) 250 mg BIDWMEALS PO ; Start 02/04/20 at 08:00; Stop 02/03/20 at 20:19; Status DC Losartan Potassium (Cozaar) 100 mg DAILY PO Last administered on 02/06/20at 12:49; Start 02/04/20 at 09:00 Metoprolol Tartrate (Lopressor) 100 mg BID PO Last administered on 02/06/20at 12:49; Start 02/03/20 at 21:00 Multivitamins (Thera M Plus) 1 tab DAILY PO ; Start 02/04/20 at 09:00 Ondansetron HCl (Zofran Odt) 8 mg PRN BID PRN PO NAUSEA/VOMITING; Start 02/03/20 at 17:30 Morphine Sulfate 30 ml @ As Directed STK-MED ONCE IV ; Start 02/03/20 at 17:11; Stop 02/03/20 at 17:12; Status DC Metoprolol Tartrate (Lopressor Vial) 5 mg Q6HRS IVP Last administered on 02/06/20at 06:13; Start 02/03/20 at 21:00; Stop 02/06/20 at 09:51; Status DC Diltiazem HCl (Cardizem Iv Push) 10 mg 1X ONCE IVP Last administered on 02/03/20at 20:51; Start 02/03/20 at 21:00; Stop 02/03/20 at 21:01; Status DC Diltiazem HCl (Cardizem Iv Push) 10 mg 1X ONCE IVP Last administered on 02/03at 08:08; Start 02/04/20 at 07:00; Stop 02/04/20 at 07:01; Status DC Diltiazem HCl (Cardizem 24hr Cd) 180 mg DAILY PO ; Start 02/04/20 at 09:00; Stop 02/04/20 at 13:17; Status DC Diltiazem HCl 125 mg/Sodium Chloride 125 ml @ 5 mls/hr CONT PRN IV SEE I/O RECORD Last administered on 02/05/20at 23:22; Start 02/04/20 at 09:45 Enoxaparin Sodium (Lovenox 40mg Syringe) 40 mg DAILY SQ Last administered on 02/06/20at 08:29; Start 02/05/20 at 09:00 Magnesium Sulfate 50 ml @ 25 mls/hr 1X ONCE IV Last administered on 02/05/20at 16:27; Start 02/05/20 at 13:15; Stop 02/05/20 at 15:14; Status DC Metoprolol Tartrate (Lopressor Vial) 5 mg PRN Q6HRS PRN IVP TACHYCARDIA; Start 02/06/20 at 09:45 Digoxin (Lanoxin) 250 mcg 1X ONCE IV Last administered on 02/06/20at 09:45; St art 02/06/20 at 09:45; Stop 02/06/20 at 09:52; Status DC Active Scripts Active Reported Zofran (Ondansetron Hcl) 8 Mg Tablet 8 Mg PO BID PRN Oxycodone Hcl 20 Mg Tablet 10 Mg PO PRN PRN Centrum Silver Women Tablet (Multivits-Min/Iron/FA/Lutein) 1 Each Tablet 1 Each PO DAILY Pepcid (Famotidine) 20 Mg Tablet 20 Mg PO HS PRN Atorvastatin Calcium 40 Mg Tablet 1 Tab PO QODAY Eliquis (Apixaban) 2.5 Mg Tablet 2.5 Mg PO BID Metoprolol Tartrate 100 Mg Tablet 1 Tab PO BID LAST DOSE GIVEN: DATE:08/30/16 TIME:829 Amlodipine Besylate 5 Mg Tablet 1 Tab PO DAILY08 Last dose given: 8:30 a.m. Next dose due: 08-30-16 8:30 a.m. Latanoprost 2.5 Ml Drops 1 Drop EACHEYE QHS Last dose given: 08-31-16 9:00 p.m. Next dose due: tonight Losartan Potassium 100 Mg Tablet 1 Tab PO DAILY Last dose given: 8:30 a.m. Next dose due: 08-30-16 8:30 a.m. Metformin Hcl 500 Mg Tablet 250 Mg PO BIDWMEALS Last dose given: 09/01/16 8:30 a.m. Next dose due: tonight Vitals/I & O Vital Sign - Last 24 Hours 02/05/20 02/05/20 02/05/20 02/05/20 18:27 19:00 19:52 20:00 Temp 98.1 98.1 Pulse 100 106 95 104 Resp 18 B/P (MAP) 143/60 132/69 (90) 132/69 (90) 129/70 (89) Pulse Ox 99 O2 Delivery Nasal Cannula O2 Flow Rate 1.0 02/05/20 02/05/20 02/05/20 02/05/20 20:00 21:00 22:00 22:33 Temp 98.1 98.1 Pulse 106 104 96 Resp 18 B/P (MAP) 133/60 (84) 139/62 (87) 135/61 (85) Pulse Ox 100 O2 Delivery Nasal Cannula Nasal Cannula O2 Flow Rate 1.0 1.0 02/05/20 02/06/20 02/06/20 02/06/20 23:00 00:00 00:21 01:00 Pulse 102 110 96 B/P (MAP) 135/78 (97) 116/58 (77) 135/61 106/52 (70) 02/06/20 02/06/20 02/06/20 02/06/20 02:00 02:57 03:00 04:00 Temp 98.3 98.3 Pulse 108 88 100 104 Resp 18 B/P (MAP) 113/75 (88) 98/66 (77) 103/56 (72) 116/55 (75) Pulse Ox 100 O2 Delivery Nasal Cannula O2 Flow Rate 1.0 02/06/20 02/06/20 02/06/20 02/06/20 05:00 06:00 06:13 07:00 Temp 97.8 97.8 Pulse 118 105 113 106 Resp 20 B/P (MAP) 121/62 (81) 131/76 (94) 131/76 133/55 (81) Pulse Ox 93 O2 Delivery Nasal Cannula O2 Flow Rate 2.0 02/06/20 02/06/20 02/06/20 02/06/20 08:00 09:45 10:39 12:49 Temp 97.8 97.8 Pulse 91 86 86 Resp 20 B/P (MAP) 137/66 140/62 (88) 140/62 Pulse Ox 92 O2 Delivery Nasal Cannula Nasal Cannula O2 Flow Rate 2.0 2.0 02/06/20 02/06/20 02/06/20 12:49 12:49 15:00 Temp 98.1 98.1 Pulse 86 86 77 Resp 20 B/P (MAP) 140/62 140/62 118/73 (88) Pulse Ox 92 O2 Delivery Nasal Cannula O2 Flow Rate 2.0 Intake and Output 02/05/20 02/05/20 02/06/20 15:00 23:00 07:00 Intake Total 120 ml 2158 ml 1763 ml Output Total 548 ml 295 ml 350 ml Balance -428 ml 1863 ml 1413 ml Nutrition Consultation Dietary Evaluation: Recommendations by RD: Dietary education by RD, Increase Calorie Intake, Protein supplementation Comments: REC advance diet within next 24 - 48 hrs or as able per surgery, goal diet ADA/cardiac w/glucerna (strawberry) w/breakfast and lunch If unable to advance diet this weekend, recommend PPN for short-term nutrition support needs Expected Outcomes/Goals: diet advancement - not met, goal ongoing Malnutrition Findings: Food and Nutrition Intake (Sev: <50% est energy req 5days Weight Status: Appropriate Justicifation of Admission Dx: Justifications for Admission: Justification of Admission Dx: Yes Aspiration Pneumonia: Hemodynamic Instability AMOR MONTOYA MD Feb 06, 2020 17:42
[2020-02-06] MEDS: LATANOPROST 0.005% OPHTH SOLUTION 2.5ML BOTTLE. OU SCH (21:01)
[2020-02-07 03:47] VITALS: BP 148/69
--- NOTE | 2020-02-07 06:47 | PDOC ---
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 fib History of heart attack Glaucoma Osteoarthritis TIA Duodenal ulcer Plan Apixaban as per surgical attending Darinel for rate control Thank you for allowing us to participate in the care of the patient Reassess in the a.m. Pain management as per attending will continue to follow along DVT prophylaxis as per attending History of Present Illness History of Present Illness 02/03 Patient with uncontrolled heart rate, patient most likely will need a CCB and good analgesia. Patient resting comfortably in no acute distress. NO chest pain no dyspnea reported. 02/04 Patient with no acute events reported overnight, continues to need cardizem drip, no complaints during my visit. 02/05 Patient in no acute distress. The patient's pain is well controlled, the patient is complaining of discomfort from the NG tube and hoping to get it discontinued later in the day. Patient relates to me that she has been passing gases, I have discussed this with the surgical attending ROBBIE Vitals Vitals Vital Signs Date Time Temp Pulse Resp B/P (MAP) Pulse Ox O2 Delivery O2 Flow Rate FiO2 02/07/20 03:47 98.2 83 16 148/69 (95) 92 Nasal Cannula 2.0 98.2 Physical Exam General: Alert, Oriented X3, Cooperative Heart: Other (AFIB with RVR) Lungs: Clear Abdomen: Soft, Other (dressing dry, aleksander serosang) Extremities: No edema, Normal pulses Skin: No significant lesion Labs LABS Laboratory Tests Test 02/06/20 09:28 02/06/20 23:38 02/07/20 05:27 Sodium Level 140 mmol/L (136-145) Potassium Level 4.1 mmol/L (3.5-5.1) Chloride Level 104 mmol/L (98-107) Carbon Dioxide Level 24 mmol/L (21-32) Anion Gap 12 (6-14) Blood Urea Nitrogen 14 mg/dL (7-20) Creatinine 0.8 mg/dL (0.6-1.0) Estimated GFR (Cockcroft-Gault) 67.7 Glucose Level 102 mg/dL (70-99) Calcium Level 8.3 mg/dL (8.5-10.1) Magnesium Level 2.1 mg/dL (1.8-2.4) Glucose (Fingerstick) 102 mg/dL (70-99) 93 mg/dL (70-99) Comment Review of Relevant I have reviewed the following items goldy (where applicable) has been applied. Labs Laboratory Tests Test 02/06/20 09:28 02/06/20 23:38 02/07/20 05:27 Sodium Level 140 mmol/L (136-145) Potassium Level 4.1 mmol/L (3.5-5.1) Chloride Level 104 mmol/L (98-107) Carbon Dioxide Level 24 mmol/L (21-32) Anion Gap 12 (6-14) Blood Urea Nitrogen 14 mg/dL (7-20) Creatinine 0.8 mg/dL (0.6-1.0) Estimated GFR (Cockcroft-Gault) 67.7 Glucose Level 102 mg/dL (70-99) Calcium Level 8.3 mg/dL (8.5-10.1) Magnesium Level 2.1 mg/dL (1.8-2.4) Glucose (Fingerstick) 102 mg/dL (70-99) 93 mg/dL (70-99) Laboratory Tests Test 02/06/20 09:28 02/06/20 23:38 02/07/20 05:27 Sodium Level 140 mmol/L (136-145) Potassium Level 4.1 mmol/L (3.5-5.1) Chloride Level 104 mmol/L (98-107) Carbon Dioxide Level 24 mmol/L (21-32) Anion Gap 12 (6-14) Blood Urea Nitrogen 14 mg/dL (7-20) Creatinine 0.8 mg/dL (0.6-1.0) Estimated GFR (Cockcroft-Gault) 67.7 Glucose Level 102 mg/dL (70-99) Calcium Level 8.3 mg/dL (8.5-10.1) Magnesium Level 2.1 mg/dL (1.8-2.4) Glucose (Fingerstick) 102 mg/dL (70-99) 93 mg/dL (70-99) Medications Current Medications Ondansetron HCl (Zofran) 4 mg PRN Q6HRS PRN IV NAUSEA/VOMITING; Start 02/03/20 at 07:00; Stop 02/03/20 at 20:00; Status DC Fentanyl Citrate (Fentanyl 2ml Vial) 25 mcg PRN Q5MIN PRN IV MILD PAIN 1-3; Start 02/03/20 at 07:00; Stop 02/03/20 at 20:00; Status DC Fentanyl Citrate (Fentanyl 2ml Vial) 50 mcg PRN Q5MIN PRN IV MODERATE TO SEVERE PAIN; Start 02/03/20 at 07:00; Stop 02/03/20 at 20:00; Status DC Morphine Sulfate (Morphine Sulfate) 1 mg PRN Q10MIN PRN IV SEVERE PAIN 7-10; Start 02/03/20 at 07:00; Stop 02/03/20 at 20:00; Status DC Ringer's Solution 1,000 ml @ 30 mls/hr Q24H IV Last administered on 02/03/20at 17:04; Start 02/03/20 at 07:00; Stop 02/03/20 at 18:59; Status DC Lidocaine HCl (Xylocaine-Mpf 1% 2ml Vial) 2 ml PRN 1X PRN ID PRIOR TO IV START; Start 02/03/20 at 07:00; Stop 02/03/20 at 20:00; Status DC Hydromorphone HCl (Dilaudid) 0.5 mg PRN Q10MIN PRN IV SEV PAIN, Second choice; Start 02/03/20 at 07:00; Stop 02/03/20 at 20:00; Status DC Prochlorperazine Edisylate (Compazine) 5 mg PACU PRN PRN IV NAUSEA, MRX1; Start 02/03/20 at 07:00; Stop 02/03/20 at 20:00; Status DC Cefoxitin Sodium (Mefoxin) 2 gm 1X PREOP PRN IVP PRIOR TO SURGERY Last administered on 02/03/20at 13:09; Start 02/03/20 at 08:00; Stop 02/04/20 at 10:52; Status DC Cefoxitin Sodium (Mefoxin) 1 gm STK-MED ONCE IVP ; Start 02/03/20 at 10:31; Stop 02/03/20 at 10:31; Status DC Lidocaine HCl (Lidocaine Pf 2% Vial) 5 ml STK-MED ONCE .ROUTE ; Start 02/03/20 at 10:55; Stop 02/03/20 at 10:55; Status DC Etomidate (Amidate) 20 mg STK-MED ONCE IV ; Start 02/03/20 at 10:55; Stop 02/03/20 at 10:55; Status DC Dexamethasone Sodium Phosphate (Decadron) 4 mg STK-MED ONCE .ROUTE ; Start 02/03/20 at 10:55; Stop 02/03/20 at 10:55; Status DC Rocuronium Winona (Zemuron) 100 mg STK-MED ONCE .ROUTE ; Start 02/03/20 at 10:55; Stop 02/03/20 at 10:55; Status DC Fentanyl Citrate (Fentanyl 2ml Vial) 100 mcg STK-MED ONCE .ROUTE ; Start 02/03/20 at 10:55; Stop 02/03/20 at 10:55; Status DC Dexamethasone Sodium Phosphate (Decadron) 4 mg STK-MED ONCE .ROUTE ; Start 02/03/20 at 10:58; Stop 02/03/20 at 10:59; Status DC Ondansetron HCl (Zofran) 4 mg STK-MED ONCE .ROUTE ; Start 02/03/20 at 10:58; Stop 02/03/20 at 10:59; Status DC Phenylephrine HCl (Pierre-Synephrine Inj) 10 mg STK-MED ONCE .ROUTE ; Start 02/03/20 at 10:59; Stop 02/03/20 at 10:59; Status DC Insulin Human Lispro (HumaLOG VIAL for OP,RR ONLY) 0-10 units PRN Q1HR PRN SQ PER PROTOCOL Last administered on 02/03/20at 11:37; Start 02/03/20 at 11:30; Stop 02/04/20 at 11:29; Status DC Bupivacaine HCl/ Epinephrine Bitart (Sensorcain-Epi 0.5%-1:364244 Mpf) 30 ml STK-MED ONCE .ROUTE Last administered on 02/03/20at 13:37; Start 02/03/20 at 13:34; Stop 02/03/20 at 13:34; Status DC Cellulose (Surgicel Hemostat 4x8) 1 each STK-MED ONCE .ROUTE Last administered on 02/03/20at 15:00; Start 02/03/20 at 14:35; Stop 02/03/20 at 14:35; Status DC Neostigmine Winona (Neostigmine Methylsulfate) 5 mg STK-MED ONCE .ROUTE ; Start 02/03/20 at 14:38; Stop 02/03/20 at 14:38; Status DC Glycopyrrolate (Robinul) 1 mg STK-MED ONCE .ROUTE ; Start 02/03/20 at 14:38; Stop 02/03/20 at 14:38; Status DC Ketamine HCl (Ketamine) 50 mg STK-MED ONCE .ROUTE ; Start 02/03/20 at 15:11; Stop 02/03/20 at 15:11; Status DC Sevoflurane (Ultane) 90 ml STK-MED ONCE IH ; Start 02/03/20 at 15:24; Stop 02/03/20 at 15:24; Status DC Enoxaparin Sodium (Lovenox 40mg Syringe) 40 mg Q12HR SQ Last administered on 02/04/20at 09:52; Start 02/03/20 at 21:00; Stop 02/04/20 at 10:53; Status DC Sodium Chloride (Normal Saline Flush) 3 ml QSHIFT PRN IV AFTER MEDS AND BLOOD DRAWS; Start 02/03/20 at 17:00 Ringer's Solution 1,000 ml @ 100 mls/hr Q10H IV Last administered on 02/06/20at 21:01; Start 02/03/20 at 17:00 Naloxone HCl (Narcan) 0.4 mg PRN Q2MIN PRN IV SEE INSTRUCTIONS; Start 02/03/20 at 17:00 Sodium Chloride 1,000 ml @ 25 mls/hr Q24H IV Last administered on 02/06/20at 06:13; Start 02/03/20 at 17:00 Morphine Sulfate 30 ml @ 0 mls/hr CONT PRN PRN IV PER PROTOCOL Last ad ministered on 02/06/20at 09:25; Start 02/03/20 at 17:00 Ondansetron HCl (Zofran) 4 mg PRN Q6HRS PRN IVP NAUESA, 1ST CHOICE; Start 02/03/20 at 17:00 Amlodipine Besylate (Norvasc) 5 mg DAILY08 PO Last administered on 02/06/20at 12:49; Start 02/04/20 at 08:00 Atorvastatin Calcium (Lipitor) 40 mg QODAY PO ; Start 02/05/20 at 09:00 Famotidine (Pepcid) 20 mg PRN QHS PRN PO INDIGESTION; Start 02/03/20 at 17:15 Latanoprost (Xalatan) 1 drop QHS OU Last administered on 02/06/20at 21:01; Start 02/03/20 at 21:00 Metformin HCl (Glucophage) 250 mg BIDWMEALS PO ; Start 02/04/20 at 08:00; Stop 02/03/20 at 20:19; Status DC Losartan Potassium (Cozaar) 100 mg DAILY PO Last administered on 02/06/20at 12:49; Start 02/04/20 at 09:00 Metoprolol Tartrate (Lopressor) 100 mg BID PO Last administered on 02/06/20at 20:58; Start 02/03/20 at 21:00 Multivitamins (Thera M Plus) 1 tab DAILY PO ; Start 02/04/20 at 09:00 Ondansetron HCl (Zofran Odt) 8 mg PRN BID PRN PO NAUSEA/VOMITING; Start 02/03/20 at 17:30 Morphine Sulfate 30 ml @ As Directed STK-MED ONCE IV ; Start 02/03/20 at 17:11; Stop 02/03/20 at 17:12; Status DC Metoprolol Tartrate (Lopressor Vial) 5 mg Q6HRS IVP Last administered on 02/06/20at 06:13; Start 02/03/20 at 21:00; Stop 02/06/20 at 09:51; Status DC Diltiazem HCl (Cardizem Iv Push) 10 mg 1X ONCE IVP Last administered on 02/03/20at 20:51; Start 02/03/20 at 21:00; Stop 02/03/20 at 21:01; Status DC Diltiazem HCl (Cardizem Iv Push) 10 mg 1X ONCE IVP Last administered on 02/04/20at 08:08; Start 02/04/20 at 07:00; Stop 02/04/20 at 07:01; Status DC Diltiazem HCl (Cardizem 24hr Cd) 180 mg DAILY PO ; Start 02/04/20 at 09:00; Stop 02/04/20 at 13:17; Status DC Diltiazem HCl 125 mg/Sodium Chloride 125 ml @ 5 mls/hr CONT PRN IV SEE I/O RECORD Last administered on 02/05/20at 23:22; Start 02/04/20 at 09:45 Enoxaparin Sodium (Lovenox 40mg Syringe) 40 mg DAILY SQ Last administered on 02/06/20at 08:29; Start 02/05/20 at 09:00 Magnesium Sulfate 50 ml @ 25 mls/hr 1X ONCE IV Last administered on 02/05/20at 16:27; Start 02/05/20 at 13:15; Stop 02/05/20 at 15:14; Status DC Metoprolol Tartrate (Lopressor Vial) 5 mg PRN Q6HRS PRN IVP TACHYCARDIA; Start 02/06/20 at 09:45 Digoxin (Lanoxin) 250 mcg 1X ONCE IV Last administered on 02/06/20at 09:45; Start 02/06/20 at 09:45; Stop 02/06/20 at 09:52; Status DC Active Scripts Active Reported Zofran (Ondansetron Hcl) 8 Mg Tablet 8 Mg PO BID PRN Oxycodone Hcl 20 Mg Tablet 10 Mg PO PRN PRN Centrum Silver Women Tablet (Multivits-Min/Iron/FA/Lutein) 1 Each Tablet 1 Each PO DAILY Pepcid (Famotidine) 20 Mg Tablet 20 Mg PO HS PRN Atorvastatin Calcium 40 Mg Tablet 1 Tab PO QODAY Eliquis (Apixaban) 2.5 Mg Tablet 2.5 Mg PO BID Metoprolol Tartrate 100 Mg Tablet 1 Tab PO BID LAST DOSE GIVEN: DATE:08/30/16 TIME:829 Amlodipine Besylate 5 Mg Tablet 1 Tab PO DAILY08 Last dose given: 8:30 a.m. Next dose due: 08-30-16 8:30 a.m. Latanoprost 2.5 Ml Drops 1 Drop EACHEYE QHS Last dose given: 08-31-16 9:00 p.m. Next dose due: tonight Losartan Potassium 100 Mg Tablet 1 Tab PO DAILY Last dose given: 8:30 a.m. Next dose due: 08-30-16 8:30 a.m. Metformin Hcl 500 Mg Tablet 250 Mg PO BIDWMEALS Last dose given: 09/01/16 8:30 a.m. Next dose due: tonight Vitals/I & O Vital Sign - Last 24 Hours 9/1102/06/20 02/06/20 02/06/20 07:00 08:00 09:45 10:39 Temp 97.8 97.8 97.8 97.8 Pulse 106 91 86 Resp 20 20 B/P (MAP) 133/55 (81) 137/66 140/62 (88) Pulse Ox 93 92 O2 Delivery Nasal Cannula Nasal Cannula Nasal Cannula O2 Flow Rate 2.0 2.0 2.0 02/06/20 02/06/20 02/06/20 02/06/20 12:49 12:49 12:49 15:00 Temp 98.1 98.1 Pulse 86 86 86 77 Resp 20 B/P (MAP) 140/62 140/62 140/62 118/73 (88) Pulse Ox 92 O2 Delivery Nasal Cannula O2 Flow Rate 2.0 02/06/20 02/06/20 02/06/20 02/06/20 19:54 20:00 20:58 23:23 Temp 98.5 97.9 98.5 97.9 Pulse 75 88 75 Resp 16 16 B/P (MAP) 133/62 (85) 133/62 133/55 (81) Pulse Ox 92 91 O2 Delivery Nasal Cannula Nasal Cannula Nasal Cannula O2 Flow Rate 2.0 2.0 2.0 02/07/20 03:47 Temp 98.2 98.2 Pulse 83 Resp 16 B/P (MAP) 148/69 (95) Pulse Ox 92 O2 Delivery Nasal Cannula O2 Flow Rate 2.0 Intake and Output 02/06/20 02/06/20 02/07/20 15:00 23:00 07:00 Intake Total 0 ml 1250 ml Output Total 500 ml 490 ml Balance -500 ml 760 ml Nutrition Consultation Dietary Evaluation: Recommendations by RD: Dietary education by RD, Increase Calorie Intake, Protein supplementation Comments: REC advance diet within next 24 - 48 hrs or as able per surgery, goal diet ADA/cardiac w/glucerna (strawberry) w/breakfast and lunch If unable to advance diet this weekend, recommend PPN for short-term nutrition support needs Expected Outcomes/Goals: diet advancement - not met, goal ongoing Malnutrition Findings: Food and Nutrition Intake (Sev: <50% est energy req 5days Weight Status: Appropriate Justicifation of Admission Dx: Justifications for Admission: Justification of Admission Dx: Yes Aspiration Pneumonia: Hemodynamic Instability AMOR MONTOYA MD Feb 07, 2020 06:47
[2020-02-07 07:00] VITALS: BP 124/68
[2020-02-07] MEDS: ENOXAPARIN 40 MG/0.4 ML SYRINGE. SQ SCH (08:33)
[2020-02-07] MEDS: METOPROLOL TART IMMED RELEASE 50 MG TABLET. PO SCH ×2 (08:33→20:38)
[2020-02-07] MEDS: IV RINGERS,LACTATED 1000ML 1,000 ML IV SCH ×2 (08:34→17:35)
[2020-02-07] MEDS: LOSARTAN POTASSIUM 50 MG TABLET. PO SCH (08:34)
[2020-02-07] MEDS: MULTIVITAMIN with MINERAL TABLET. PO SCH (08:34)
[2020-02-07] MEDS: ATORVASTATIN CALCIUM 40 MG TABLET. PO SCH (08:34)
[2020-02-07] MEDS: amLODIPine BESYLATE 5 MG TABLET PO SCH (08:34)
[2020-02-07 10:44] VITALS: BP 147/69
--- NOTE | 2020-02-07 15:01 | PDOC ---
SURGICAL PROGRESS NOTE DATE: 02/07/20 TIME: 15:00 Subjective Patient reports doing well, pain controlled, no N/V, passing flatus and stools. Vital Signs Vital Signs Date Time Temp Pulse Resp B/P (MAP) Pulse Ox O2 Delivery O2 Flow Rate FiO2 02/07/20 10:44 98.1 82 18 147/69 (95) 90 Nasal Cannula 2.0 98.1 I&O Intake and Output 02/07/20 07:00 Intake Total 1250 ml Output Total 990 ml Balance 260 ml Intake Oral 50 ml IV Total 1200 ml Output Urine Total 700 ml Drainage Total 290 ml # Bowel Movements 1 General: Alert, Oriented X3, Cooperative, No acute distress Abdomen: Soft, No tenderness, Other (SILVIA serosang) Labs Laboratory Tests Test 02/06/20 09:28 02/06/20 23:38 02/07/20 05:27 02/07/20 11:41 Sodium Level 140 mmol/L (136-145) Potassium Level 4.1 mmol/L (3.5-5.1) Chloride Level 104 mmol/L (98-107) Carbon Dioxide Level 24 mmol/L (21-32) Anion Gap 12 (6-14) Blood Urea Nitrogen 14 mg/dL (7-20) Creatinine 0.8 mg/dL (0.6-1.0) Estimated GFR (Cockcroft-Gault) 67.7 Glucose Level 102 mg/dL (70-99) Calcium Level 8.3 mg/dL (8.5-10.1) Magnesium Level 2.1 mg/dL (1.8-2.4) Glucose (Fingerstick) 102 mg/dL (70-99) 93 mg/dL (70-99) 85 mg/dL (70-99) Laboratory Tests Test 02/06/20 23:38 02/07/20 05:27 02/07/20 11:41 Glucose (Fingerstick) 102 mg/dL (70-99) 93 mg/dL (70-99) 85 mg/dL (70-99) Problem List s/p distal pancreatectomy doing well will start clears increase activity plan d/c home in 48 hours or so Justicifation of Admission Dx: Justifications for Admission: Justification of Admission Dx: Yes Aspiration Pneumonia: Hemodynamic Instability GAMAL DAWN MD Feb 07, 2020 15:01
[2020-02-07 15:02] VITALS: BP 145/56
[2020-02-07] MEDS: IV NORMAL SALINE 1000ML BAG 1,000 ML IV SCH (15:55)
[2020-02-07 19:20] VITALS: BP 101/68
[2020-02-07] MEDS: LATANOPROST 0.005% OPHTH SOLUTION 2.5ML BOTTLE. OU SCH (20:37)
[2020-02-07 23:17] VITALS: BP 137/65
[2020-02-08 02:29] VITALS: BP 153/73
[2020-02-08] MEDS: IV RINGERS,LACTATED 1000ML 1,000 ML IV SCH ×2 (04:22→16:39)
[2020-02-08 07:00] VITALS: BP 144/77
[2020-02-08] MEDS: amLODIPine BESYLATE 5 MG TABLET PO SCH (08:00)
[2020-02-08] MEDS: MULTIVITAMIN with MINERAL TABLET. PO SCH (08:00)
[2020-02-08] MEDS: METOPROLOL TART IMMED RELEASE 50 MG TABLET. PO SCH ×2 (08:01→20:38)
[2020-02-08] MEDS: ENOXAPARIN 40 MG/0.4 ML SYRINGE. SQ SCH (08:02)
[2020-02-08] MEDS: LOSARTAN POTASSIUM 50 MG TABLET. PO SCH (08:23)
[2020-02-08 10:23] LABS: BASO % 0 % (0-3); EOS # 0.3 x10^3/uL (0.0-0.7); EOS % 2 % (0-3); HEMATOCRIT 35.5 % (36.0-47.0); HEMOGLOBIN 11.2 g/dL (12.0-15.5); LYMPH # 0.4 x10^3/uL (1.0-4.8); LYMPH % 3 % (24-48); MEAN CORPUSCULAR HEMOGLOBIN 30 pg (25-35); MEAN CORPUSCULAR HGB CONC 32 g/dL (31-37); MEAN CORPUSCULAR VOLUME 95 fL (79-100); MONO # 1.6 x10^3/uL (0.0-1.1); MONO % 12 % (0-9); NEUT # 11.1 x10^3/uL (1.8-7.7); NEUT % 82 % (31-73); PLATELET COUNT 429 x10^3/uL (140-400); RED BLOOD COUNT 3.73 x10^6/uL (3.50-5.40); RED CELL DISTRIBUTION WIDTH 14.4 % (11.5-14.5); WHITE BLOOD COUNT 13.5 x10^3/uL (4.0-11.0)
[2020-02-08 10:30] LABS: CALCIUM 8.1 mg/dL (8.5-10.1); CREATININE 0.9 mg/dL (0.6-1.0); GFR 59.1; POTASSIUM 3.6 mmol/L (3.5-5.1)
[2020-02-08 11:00] VITALS: BP 139/74
--- NOTE | 2020-02-08 11:17 | PDOC ---
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 fib History of heart attack Glaucoma Osteoarthritis TIA Duodenal ulcer Plan Apixaban as per surgical attending Darinel for rate control Thank you for allowing us to participate in the care of the patient Reassess in the a.m. Pain management as per attending will continue to follow along DVT prophylaxis as per attending History of Present Illness History of Present Illness 02/03 Patient with uncontrolled heart rate, patient most likely will need a CCB and good analgesia. Patient resting comfortably in no acute distress. NO chest pain no dyspnea reported. 02/04 Patient with no acute events reported overnight, continues to need cardizem drip, no complaints during my visit. 02/05 Patient in no acute distress. The patient's pain is well controlled, the patie nt is complaining of discomfort from the NG tube and hoping to get it discontinued later in the day. Patient relates to me that she has been passing gases, I have discussed this with the surgical attending ROBBIE Vitals Vitals Vital Signs Date Time Temp Pulse Resp B/P (MAP) Pulse Ox O2 Delivery O2 Flow Rate FiO2 02/08/20 08:23 100 144/77 02/08/20 08:00 Nasal Cannula 2.0 02/08/20 07:00 98.1 22 91 98.1 Physical Exam General: Alert, Oriented X3, Cooperative, No acute distress Heart: Other (AFIB with RVR) Lungs: Clear Abdomen: Soft, No tenderness, Other (SILVIA serosang) Extremities: No edema, Normal pulses Skin: No significant lesion Labs LABS Laboratory Tests Test 02/07/20 11:41 02/07/20 18:58 02/08/20 07:05 02/08/20 09:50 Glucose (Fingerstick) 85 mg/dL (70-99) 146 mg/dL (70-99) 129 mg/dL (70-99) White Blood Count 13.5 x10^3/uL (4.0-11.0) Red Blood Count 3.73 x10^6/uL (3.50-5.40) Hemoglobin 11.2 g/dL (12.0-15.5) Hematocrit 35.5 % (36.0-47.0) Mean Corpuscular Volume 95 fL (79-100) Mean Corpuscular Hemoglobin 30 pg (25-35) Mean Corpuscular Hemoglobin Concent 32 g/dL (31-37) Red Cell Distribution Width 14.4 % (11.5-14.5) Platelet Count 429 x10^3/uL (140-400) Neutrophils (%) (Auto) 82 % (31-73) Lymphocytes (%) (Auto) 3 % (24-48) Monocytes (%) (Auto) 12 % (0-9) Eosinophils (%) (Auto) 2 % (0-3) Basophils (%) (Auto) 0 % (0-3) Neutrophils # (Auto) 11.1 x10^3/uL (1.8-7.7) Lymphocytes # (Auto) 0.4 x10^3/uL (1.0-4.8) Monocytes # (Auto) 1.6 x10^3/uL (0.0-1.1) Eosinophils # (Auto) 0.3 x10^3/uL (0.0-0.7) Basophils # (Auto) 0.0 x10^3/uL (0.0-0.2) Sodium Level 138 mmol/L (136-145) Potassium Level 3.6 mmol/L (3.5-5.1) Chloride Level 106 mmol/L (98-107) Carbon Dioxide Level 25 mmol/L (21-32) Anion Gap 7 (6-14) Blood Urea Nitrogen 12 mg/dL (7-20) Creatinine 0.9 mg/dL (0.6-1.0) Estimated GFR (Cockcroft-Gault) 59.1 Glucose Level 142 mg/dL (70-99) Calcium Level 8.1 mg/dL (8.5-10.1) Comment Review of Relevant I have reviewed the following items goldy (where applicable) has been applied. Labs Laboratory Tests Test 02/06/20 23:38 02/07/20 05:27 02/07/20 11:41 02/07/20 18:58 Glucose (Fingerstick) 102 mg/dL (70-99) 93 mg/dL (70-99) 85 mg/dL (70-99) 146 mg/dL (70-99) Test 02/08/20 07:05 02/08/20 09:50 Glucose (Fingerstick) 129 mg/dL (70-99) White Blood Count 13.5 x10^3/uL (4.0-11.0) Red Blood Count 3.73 x10^6/uL (3.50-5.40) Hemoglobin 11.2 g/dL (12.0-15.5) Hematocrit 35.5 % (36.0-47.0) Mean Corpuscular Volume 95 fL (79-100) Mean Corpuscular Hemoglobin 30 pg (25-35) Mean Corpuscular Hemoglobin Concent 32 g/dL (31-37) Red Cell Distribution Width 14.4 % (11.5-14.5) Platelet Count 429 x10^3/uL (140-400) Neutrophils (%) (Auto) 82 % (31-73) Lymphocytes (%) (Auto) 3 % (24-48) Monocytes (%) (Auto) 12 % (0-9) Eosinophils (%) (Auto) 2 % (0-3) Basophils (%) (Auto) 0 % (0-3) Neutrophils # (Auto) 11.1 x10^3/uL (1.8-7.7) Lymphocytes # (Auto) 0.4 x10^3/uL (1.0-4.8) Monocytes # (Auto) 1.6 x10^3/uL (0.0-1.1) Eosinophils # (Auto) 0.3 x10^3/uL (0.0-0.7) Basophils # (Auto) 0.0 x10^3/uL (0.0-0.2) Sodium Level 138 mmol/L (136-145) Potassium Level 3.6 mmol/L (3.5-5.1) Chloride Level 106 mmol/L (98-107) Carbon Dioxide Level 25 mmol/L (21-32) Anion Gap 7 (6-14) Blood Urea Nitrogen 12 mg/dL (7-20) Creatinine 0.9 mg/dL (0.6-1.0) Estimated GFR (Cockcroft-Gault) 59.1 Glucose Level 142 mg/dL (70-99) Calcium Level 8.1 mg/dL (8.5-10.1) Laboratory Tests Test 02/07/20 11:41 02/07/20 18:58 02/08/20 07:05 02/08/20 09:50 Glucose (Fingerstick) 85 mg/dL (70-99) 146 mg/dL (70-99) 129 mg/dL (70-99) White Blood Count 13.5 x10^3/uL (4.0-11.0) Red Blood Count 3.73 x10^6/uL (3.50-5.40) Hemoglobin 11.2 g/dL (12.0-15.5) Hematocrit 35.5 % (36.0-47.0) Mean Corpuscular Volume 95 fL (79-100) Mean Corpuscular Hemoglobin 30 pg (25-35) Mean Corpuscular Hemoglobin Concent 32 g/dL (31-37) Red Cell Distribution Width 14.4 % (11.5-14.5) Platelet Count 429 x10^3/uL (140-400) Neutrophils (%) (Auto) 82 % (31-73) Lymphocytes (%) (Auto) 3 % (24-48) Monocytes (%) (Auto) 12 % (0-9) Eosinophils (%) (Auto) 2 % (0-3) Basophils (%) (Auto) 0 % (0-3) Neutrophils # (Auto) 11.1 x10^3/uL (1.8-7.7) Lymphocytes # (Auto) 0.4 x10^3/uL (1.0-4.8) Monocytes # (Auto) 1.6 x10^3/uL (0.0-1.1) Eosinophils # (Auto) 0.3 x10^3/uL (0.0-0.7) Basophils # (Auto) 0.0 x10^3/uL (0.0-0.2) Sodium Level 138 mmol/L (136-145) Potassium Level 3.6 mmol/L (3.5-5.1) Chloride Level 106 mmol/L (98-107) Carbon Dioxide Level 25 mmol/L (21-32) Anion Gap 7 (6-14) Blood Urea Nitrogen 12 mg/dL (7-20) Creatinine 0.9 mg/dL (0.6-1.0) Estimated GFR (Cockcroft-Gault) 59.1 Glucose Level 142 mg/dL (70-99) Calcium Level 8.1 mg/dL (8.5-10.1) Medications Current Medications Ondansetron HCl (Zofran) 4 mg PRN Q6HRS PRN IV NAUSEA/VOMITING; Start 02/03/20 at 07:00; Stop 02/03/20 at 20:00; Status DC Fentanyl Citrate (Fentanyl 2ml Vial) 25 mcg PRN Q5MIN PRN IV MILD PAIN 1-3; Start 02/03/20 at 07:00; Stop 02/03/20 at 20:00; Status DC Fentanyl Citrate (Fentanyl 2ml Vial) 50 mcg PRN Q5MIN PRN IV MODERATE TO SEVERE PAIN; Start 02/03/20 at 07:00; Stop 02/03/20 at 20:00; Status DC Morphine Sulfate (Morphine Sulfate) 1 mg PRN Q10MIN PRN IV SEVERE PAIN 7-10; Start 02/03/20 at 07:00; Stop 02/03/20 at 20:00; Status DC Ringer's Solution 1,000 ml @ 30 mls/hr Q24H IV Last administered on 02/03/20at 17:04; Start 02/03/20 at 07:00; Stop 02/03/20 at 18:59; Status DC Lidocaine HCl (Xylocaine-Mpf 1% 2ml Vial) 2 ml PRN 1X PRN ID PRIOR TO IV START; Start 02/03/20 at 07:00; Stop 02/03/20 at 20:00; Status DC Hydromorphone HCl (Dilaudid) 0.5 mg PRN Q10MIN PRN IV SEV PAIN, Second choice; Start 02/03/20 at 07:00; Stop 02/03/20 at 20:00; Status DC Prochlorperazine Edisylate (Compazine) 5 mg PACU PRN PRN IV NAUSEA, MRX1; Start 02/03/20 at 07:00; Stop 02/03/20 at 20:00; Status DC Cefoxitin Sodium (Mefoxin) 2 gm 1X PREOP PRN IVP PRIOR TO SURGERY Last administered on 02/03/20at 13:09; Start 02/03/20 at 08:00; Stop 02/04/20 at 10:52; Status DC Cefoxitin Sodium (Mefoxin) 1 gm STK-MED ONCE IVP ; Start 02/03/20 at 10:31; Stop 02/03/20 at 10:31; Status DC Lidocaine HCl (Lidocaine Pf 2% Vial) 5 ml STK-MED ONCE .ROUTE ; Start 02/03/20 at 10:55; Stop 02/03/20 at 10:55; Status DC Etomidate (Amidate) 20 mg STK-MED ONCE IV ; Start 02/03/20 at 10:55; Stop 02/03/20 at 10:55; Status DC Dexamethasone Sodium Phosphate (Decadron) 4 mg STK-MED ONCE .ROUTE ; Start 02/03/20 at 10:55; Stop 02/03/20 at 10:55; Status DC Rocuronium [place] (Zemuron) 100 mg STK-MED ONCE .ROUTE ; Start 02/03/20 at 10:55; Stop 02/03/20 at 10:55; Status DC Fentanyl Citrate (Fentanyl 2ml Vial) 100 mcg STK-MED ONCE .ROUTE ; Start 02/03/20 at 10:55; Stop 02/03/20 at 10:55; Status DC Dexamethasone Sodium Phosphate (Decadron) 4 mg STK-MED ONCE .ROUTE ; Start 02/03/20 at 10:58; Stop 02/03/20 at 10:59; Status DC Ondansetron HCl (Zofran) 4 mg STK-MED ONCE .ROUTE ; Start 02/03/20 at 10:58; Stop 02/03/20 at 10:59; Status DC Phenylephrine HCl (Pierre-Synephrine Inj) 10 mg STK-MED ONCE .ROUTE ; Start 02/03/20 at 10:59; Stop 02/03/20 at 10:59; Status DC Insulin Human Lispro (HumaLOG VIAL for OP,RR ONLY) 0-10 units PRN Q1HR PRN SQ PER PROTOCOL Last administered on 02/03/20at 11:37; Start 02/03/20 at 11:30; Stop 02/04/20 at 11:29; Status DC Bupivacaine HCl/ Epinephrine Bitart (Sensorcain-Epi 0.5%-1:[id number] Mpf) 30 ml STK-MED ONCE .ROUTE Last administered on 02/03/20at 13:37; Start 02/03/20 at 13:34; Stop 02/03/20 at 13:34; Status DC Cellulose (Surgicel Hemostat 4x8) 1 each STK-MED ONCE .ROUTE Last administered on 02/03/20at 15:00; Start 02/03/20 at 14:35; Stop 02/03/20 at 14:35; Status DC Neostigmine [place] (Neostigmine Methylsulfate) 5 mg STK-MED ONCE .ROUTE ; Start 02/03/20 at 14:38; Stop 02/03/20 at 14:38; Status DC Glycopyrrolate (Robinul) 1 mg STK-MED ONCE .ROUTE ; Start 02/03/20 at 14:38; Stop 02/03/20 at 14:38; Status DC Ketamine HCl (Ketamine) 50 mg STK-MED ONCE .ROUTE ; Start 02/03/20 at 15:11; Stop 02/03/20 at 15:11; Status DC Sevoflurane (Ultane) 90 ml STK-MED ONCE IH ; Start 02/03/20 at 15:24; Stop 02/03/20 at 15:24; Status DC Enoxaparin Sodium (Lovenox 40mg Syringe) 40 mg Q12HR SQ Last administered on 02/04/20at 09:52; Start 02/03/20 at 21:00; Stop 02/04/20 at 10:53; Status DC Sodium Chloride (Normal Saline Flush) 3 ml QSHIFT PRN IV AFTER MEDS AND BLOOD DRAWS; Start 02/03/20 at 17:00 Ringer's Solution 1,000 ml @ 100 mls/hr Q10H IV Last administered on 02/08/20at 04:22; Start 02/03/20 at 17:00 Naloxone HCl (Narcan) 0.4 mg PRN Q2MIN PRN IV SEE INSTRUCTIONS; Start 02/03/20 at 17:00 Sodium Chloride 1,000 ml @ 25 mls/hr Q24H IV Last administered on 02/06/20at 06:13; Start 02/03/20 at 17:00 Morphine Sulfate 30 ml @ 0 mls/hr CONT PRN PRN IV PER PROTOCOL Last administered on 02/06/20at 09:25; Start 02/03/20 at 17:00 Ondansetron HCl (Zofran) 4 mg PRN Q6HRS PRN IVP NAUESA, 1ST CHOICE; Start 02/03/20 at 17:00 Amlodipine Besylate (Norvasc) 5 mg DAILY08 PO Last administered on 02/08/20at 08:00; Start 02/04/20 at 08:00 Atorvastatin Calcium (Lipitor) 40 mg QODAY PO Last administered on 02/07/20at 08:34; Start 02/05/20 at 09:00 Famotidine (Pepcid) 20 mg PRN QHS PRN PO INDIGESTION Last administered on 02/08/20at 08:00; Start 02/03/20 at 17:15 Latanoprost (Xalatan) 1 drop QHS OU Last administered on 02/07/20at 20:37; Start 02/03/20 at 21:00 Metformin HCl (Glucophage) 250 mg BIDWMEALS PO ; Start 02/04/20 at 08:00; Stop 02/03/20 at 20:19; Status DC Losartan Potassium (Cozaar) 100 mg DAILY PO Last administered on 02/08/20at 08:23; Start 02/04/20 at 09:00 Metoprolol Tartrate (Lopressor) 100 mg BID PO Last administered on 02/08/20at 08:01; Start 02/03/20 at 21:00 Multivitamins (Thera M Plus) 1 tab DAILY PO Last administered on 02/08/20at 08:00; Start 02/04/20 at 09:00 Ondansetron HCl (Zofran Odt) 8 mg PRN BID PRN PO NAUSEA/VOMITING; Start 02/03/20 at 17:30 Morphine Sulfate 30 ml @ As Directed STK-MED ONCE IV ; Start 02/03/20 at 17:11; Stop 02/03/20 at 17:12; Status DC Metoprolol Tartrate (Lopressor Vial) 5 mg Q6HRS IVP Last administered on 02/06/20at 06:13; Start 02/03/20 at 21:00; Stop 02/06/20 at 09:51; Status DC Diltiazem HCl (Cardizem Iv Push) 10 mg 1X ONCE IVP Last administered on 02/03/20at 20:51; Start 02/03/20 at 21:00; Stop 02/03/20 at 21:01; Status DC Diltiazem HCl (Cardizem Iv Push) 10 mg 1X ONCE IVP Last administered on 02/04/20at 08:08; Start 02/04/20 at 07:00; Stop 02/04/20 at 07:01; Status DC Diltiazem HCl (Cardizem 24hr Cd) 180 mg DAILY PO ; Start 02/04/20 at 09:00; Stop 02/04/20 at 13:17; Status DC Diltiazem HCl 125 mg/Sodium Chloride 125 ml @ 5 mls/hr CONT PRN IV SEE I/O RECORD Last administered on 02/05/20at 23:22; Start 02/04/20 at 09:45 Enoxaparin Sodium (Lovenox 40mg Syringe) 40 mg DAILY SQ Last administered on 02/08/20at 08:02; Start 02/05/20 at 09:00 Magnesium Sulfate 50 ml @ 25 mls/hr 1X ONCE IV Last administered on 02/05/20at 16:27; Start 02/05/20 at 13:15; Stop 02/05/20 at 15:14; Status DC Metoprolol Tartrate (Lopressor Vial) 5 mg PRN Q6HRS PRN IVP TACHYCARDIA; Start 02/06/20 at 09:45 Digoxin (Lanoxin) 250 mcg 1X ONCE IV Last administered on 02/06/20at 09:45; Start 02/06/20 at 09:45; Stop 02/06/20 at 09:52; Status DC Active Scripts Active Reported Zofran (Ondansetron Hcl) 8 Mg Tablet 8 Mg PO BID PRN Oxycodone Hcl 20 Mg Tablet 10 Mg PO PRN PRN Centrum Silver Women Tablet (Multivits-Min/Iron/FA/Lutein) 1 Each Tablet 1 Each PO DAILY Pepcid (Famotidine) 20 Mg Tablet 20 Mg PO HS PRN Atorvastatin Calcium 40 Mg Tablet 1 Tab PO QODAY Eliquis (Apixaban) 2.5 Mg Tablet 2.5 Mg PO BID Metoprolol Tartrate 100 Mg Tablet 1 Tab PO BID LAST DOSE GIVEN: DATE:08/30/16 TIME:829 Amlodipine Besylate 5 Mg Tablet 1 Tab PO DAILY08 Last dose given: 8:30 a.m. Next dose due: 08-30-16 8:30 a.m. Latanoprost 2.5 Ml Drops 1 Drop EACHEYE QHS Last dose given: 08-31-16 9:00 p.m. Next dose due: tonight Losartan Potassium 100 Mg Tablet 1 Tab PO DAILY Last dose given: 8:30 a.m. Next dose due: 08-30-16 8:30 a.m. Metformin Hcl 500 Mg Tablet 250 Mg PO BIDWMEALS Last dose given: 09/01/16 8:30 a.m. Next dose due: tonight Vitals/I & O Vital Sign - Last 24 Hours 02/07/20 02/07/20 02/07/20 02/07/20 15:02 19:20 19:48 20:38 Temp 97.4 97.8 97.4 97.8 Pulse 81 85 96 Resp 20 24 B/P (MAP) 145/56 (85) 101/68 (79) 136/63 Pulse Ox 90 93 O2 Delivery Nasal Cannula Nasal Cannula Nasal Cannula O2 Flow Rate 2.0 2.0 2.0 02/07/20 02/08/20 02/08/20 02/08/20 23:17 02:29 07:00 08:00 Temp 97.1 97.5 98.1 97.1 97.5 98.1 Pulse 92 97 114 100 Resp 24 22 B/P (MAP) 137/65 (89) 153/73 (99) 144/77 (99) 144/77 Pulse Ox 95 95 91 O2 Delivery Nasal Cannula Nasal Cannula Nasal Cannula O2 Flow Rate 2.0 2.0 2.0 02/08/20 02/08/20 02/08/20 08:00 08:01 08:23 Pulse 100 100 B/P (MAP) 144/77 144/77 O2 Delivery Nasal Cannula O2 Flow Rate 2.0 Intake and Output 02/07/20 02/07/20 02/08/20 15:00 23:00 07:00 Intake Total 970 ml Output Total 495 ml 260 ml 225 ml Balance -495 ml 710 ml -225 ml Nutrition Consultation Dietary Evaluation: Recommendations by RD: Dietary education by RD, Increase Calorie Intake, Protein supplementation Comments: REC advance diet within next 24 - 48 hrs or as able per surgery, goal diet ADA/cardiac w/glucerna (strawberry) w/breakfast and lunch If unable to advance diet this weekend, recommend PPN for short-term nutrition support needs Expected Outcomes/Goals: diet advancement - not met, goal ongoing Malnutrition Findings: Food and Nutrition Intake (Sev: <50% est energy req 5days Weight Status: Appropriate Justicifation of Admission Dx: Justifications for Admission: Justification of Admission Dx: Yes Aspiration Pneumonia: Hemodynamic Instability AMOR MONTOYA MD Feb 08, 2020 11:17
--- NOTE | 2020-02-08 14:30 | PDOC ---
SURGICAL PROGRESS NOTE DATE: 02/08/20 TIME: 14:29 Subjective Pt doing well, marbella clears, passing flatus and stools, pain controlled Vital Signs Vital Signs Date Time Temp Pulse Resp B/P (MAP) Pulse Ox O2 Delivery O2 Flow Rate FiO2 02/08/20 11:00 97.8 86 24 139/74 (95) 94 Nasal Cannula 2.0 97.8 I&O Intake and Output 02/08/20 07:00 Intake Total 970 ml Output Total 980 ml Balance -10 ml Intake Oral 120 ml IV Total 850 ml Output Urine Total 575 ml Drainage Total 405 ml # Voids 3 # Bowel Movements 1 PATIENT HAS A FORD: No General: Alert, Oriented X3, Cooperative, No acute distress Abdomen: Soft, No tenderness, Other (drain with minimal output) Labs Laboratory Tests Test 02/06/20 23:38 02/07/20 05:27 02/07/20 11:41 02/07/20 18:58 Glucose (Fingerstick) 102 mg/dL (70-99) 93 mg/dL (70-99) 85 mg/dL (70-99) 146 mg/dL (70-99) Test 02/08/20 07:05 02/08/20 09:50 02/08/20 11:45 Glucose (Fingerstick) 129 mg/dL (70-99) 119 mg/dL (70-99) White Blood Count 13.5 x10^3/uL (4.0-11.0) Red Blood Count 3.73 x10^6/uL (3.50-5.40) Hemoglobin 11.2 g/dL (12.0-15.5) Hematocrit 35.5 % (36.0-47.0) Mean Corpuscular Volume 95 fL (79-100) Mean Corpuscular Hemoglobin 30 pg (25-35) Mean Corpuscular Hemoglobin Concent 32 g/dL (31-37) Red Cell Distribution Width 14.4 % (11.5-14.5) Platelet Count 429 x10^3/uL (140-400) Neutrophils (%) (Auto) 82 % (31-73) Lymphocytes (%) (Auto) 3 % (24-48) Monocytes (%) (Auto) 12 % (0-9) Eosinophils (%) (Auto) 2 % (0-3) Basophils (%) (Auto) 0 % (0-3) Neutrophils # (Auto) 11.1 x10^3/uL (1.8-7.7) Lymphocytes # (Auto) 0.4 x10^3/uL (1.0-4.8) Monocytes # (Auto) 1.6 x10^3/uL (0.0-1.1) Eosinophils # (Auto) 0.3 x10^3/uL (0.0-0.7) Basophils # (Auto) 0.0 x10^3/uL (0.0-0.2) Sodium Level 138 mmol/L (136-145) Potassium Level 3.6 mmol/L (3.5-5.1) Chloride Level 106 mmol/L (98-107) Carbon Dioxide Level 25 mmol/L (21-32) Anion Gap 7 (6-14) Blood Urea Nitrogen 12 mg/dL (7-20) Creatinine 0.9 mg/dL (0.6-1.0) Estimated GFR (Cockcroft-Gault) 59.1 Glucose Level 142 mg/dL (70-99) Calcium Level 8.1 mg/dL (8.5-10.1) Laboratory Tests Test 02/07/20 18:58 02/08/20 07:05 02/08/20 09:50 02/08/20 11:45 Glucose (Fingerstick) 146 mg/dL (70-99) 129 mg/dL (70-99) 119 mg/dL (70-99) White Blood Count 13.5 x10^3/uL (4.0-11.0) Red Blood Count 3.73 x10^6/uL (3.50-5.40) Hemoglobin 11.2 g/dL (12.0-15.5) Hematocrit 35.5 % (36.0-47.0) Mean Corpuscular Volume 95 fL (79-100) Mean Corpuscular Hemoglobin 30 pg (25-35) Mean Corpuscular Hemoglobin Concent 32 g/dL (31-37) Red Cell Distribution Width 14.4 % (11.5-14.5) Platelet Count 429 x10^3/uL (140-400) Neutrophils (%) (Auto) 82 % (31-73) Lymphocytes (%) (Auto) 3 % (24-48) Monocytes (%) (Auto) 12 % (0-9) Eosinophils (%) (Auto) 2 % (0-3) Basophils (%) (Auto) 0 % (0-3) Neutrophils # (Auto) 11.1 x10^3/uL (1.8-7.7) Lymphocytes # (Auto) 0.4 x10^3/uL (1.0-4.8) Monocytes # (Auto) 1.6 x10^3/uL (0.0-1.1) Eosinophils # (Auto) 0.3 x10^3/uL (0.0-0.7) Basophils # (Auto) 0.0 x10^3/uL (0.0-0.2) Sodium Level 138 mmol/L (136-145) Potassium Level 3.6 mmol/L (3.5-5.1) Chloride Level 106 mmol/L (98-107) Carbon Dioxide Level 25 mmol/L (21-32) Anion Gap 7 (6-14) Blood Urea Nitrogen 12 mg/dL (7-20) Creatinine 0.9 mg/dL (0.6-1.0) Estimated GFR (Cockcroft-Gault) 59.1 Glucose Level 142 mg/dL (70-99) Calcium Level 8.1 mg/dL (8.5-10.1) Problem List s/p xlap-change to PO pain meds, ADAT, OK to start anticoagulants per cardiology Justicifation of Admission Dx: Justifications for Admission: Justification of Admission Dx: Yes Aspiration Pneumonia: Hemodynamic Instability GAMAL DAWN MD Feb 08, 2020 14:30
[2020-02-08 14:43] VITALS: BP 142/76
[2020-02-08] MEDS: HYDROcodone/APAP 5/325MG 1 TAB TABLET PO PRN (17:17)
[2020-02-08 19:34] VITALS: BP 137/65
[2020-02-08] MEDS: APIXABAN 2.5 MG TABLET. PO SCH (20:38)
[2020-02-08] MEDS: LATANOPROST 0.005% OPHTH SOLUTION 2.5ML BOTTLE. OU SCH (20:38)
[2020-02-08 23:04] VITALS: BP 124/65
[2020-02-09] MEDS: IV RINGERS,LACTATED 1000ML 1,000 ML IV SCH (01:21)
[2020-02-09 03:25] VITALS: BP 178/101
[2020-02-09 07:00] VITALS: BP 185/86
[2020-02-09] MEDS: ATORVASTATIN CALCIUM 40 MG TABLET. PO SCH (07:59)
[2020-02-09] MEDS: MULTIVITAMIN with MINERAL TABLET. PO SCH (07:59)
[2020-02-09] MEDS: DOCUSATE SODIUM 100 MG CAPSULE. PO SCH (07:59)
[2020-02-09] MEDS: METOPROLOL TART IMMED RELEASE 50 MG TABLET. PO SCH ×2 (07:59→20:51)
[2020-02-09] MEDS: LOSARTAN POTASSIUM 50 MG TABLET. PO SCH (08:00)
[2020-02-09] MEDS: APIXABAN 2.5 MG TABLET. PO SCH ×2 (08:00→20:50)
[2020-02-09] MEDS: amLODIPine BESYLATE 5 MG TABLET PO SCH (08:00)
--- NOTE | 2020-02-09 08:37 | PDOC ---
[facility] PROGRESS NOTE Date of Service DOS: DATE: 02/09/20 TIME: 08:28 Chief Complaint Chief Complaint A/P: Postop colon resection for a large mass in the splenic flexure CVA in 10/2015 Coronary artery disease with previous stent placement Type 2 diabetes Hyperlipidemia Hypertension Osteoarthritis Vitamin D deficiency Afib CKD Glaucoma Duodenal ulcer Hypoxia - new History of Present Illness History of Present Illness Mr Saldana is an 88yo F w/ PMHx CVA in 10/2015, previous stent placement with coronary artery disease, type 2 diabetes, hyperlipidemia, hypertension, osteoarthritis and vitamin D deficiency who underwent a colon resection 04/09/2019 with successful reanastomosis, recovering well. Seen in consultation for medical management after recurrence of cancer noted. 02/02: Laparoscopic converted to open ex lap with excision of 2 left lower quadrant peritoneal rib implants, distal pancreatectomy and splenectomy, excision of small bowel mesenteric mass. 02/03: Patient with uncontrolled heart rate on cardizem GTT. 02/04: continues to need cardizem drip, no complaints during my visit. 02/05: The patient's pain is well controlled, the patient is complaining of discomfort from the NG tube and hoping to get it discontinued later in the day. Patient relates to me that she has been passing gases, I have discussed this with the surgical attending PA Progressively more short of breath now on 3 L nasal cannulated oxygen. Pain well controlled. NGT out currently.\ Plan: CXR, lasix x1. Hold IVF for now. Vitals/I&O Vitals/I&O: Vital Signs Date Time Temp Pulse Resp B/P (MAP) Pulse Ox O2 Delivery O2 Flow Rate FiO2 02/09/20 08:00 98 185/86 02/09/20 07:00 97.4 26 94 Nasal Cannula 3.0 97.4 I & O 02/08/20 02/08/20 02/09/20 15:00 23:00 07:00 Intake Total 748 ml 300 ml 380 ml Output Total 2 ml 80 ml 431 ml Balance 746 ml 220 ml -51 ml Physical Exam General: Alert, Oriented X3, Cooperative, No acute distress Heart: Other (AFIB with RVR) Lungs: Clear Abdomen: Soft, No tenderness, Other (drain with minimal output) Extremities: No edema, Normal pulses Skin: No significant lesion Labs Labs: Laboratory Tests Test 02/08/20 09:50 02/08/20 11:45 02/08/20 16:32 02/08/20 20:48 White Blood Count 13.5 x10^3/uL (4.0-11.0) Red Blood Count 3.73 x10^6/uL (3.50-5.40) Hemoglobin 11.2 g/dL (12.0-15.5) Hematocrit 35.5 % (36.0-47.0) Mean Corpuscular Volume 95 fL (79-100) Mean Corpuscular Hemoglobin 30 pg (25-35) Mean Corpuscular Hemoglobin Concent 32 g/dL (31-37) Red Cell Distribution Width 14.4 % (11.5-14.5) Platelet Count 429 x10^3/uL (140-400) Neutrophils (%) (Auto) 82 % (31-73) Lymphocytes (%) (Auto) 3 % (24-48) Monocytes (%) (Auto) 12 % (0-9) Eosinophils (%) (Auto) 2 % (0-3) Basophils (%) (Auto) 0 % (0-3) Neutrophils # (Auto) 11.1 x10^3/uL (1.8-7.7) Lymphocytes # (Auto) 0.4 x10^3/uL (1.0-4.8) Monocytes # (Auto) 1.6 x10^3/uL (0.0-1.1) Eosinophils # (Auto) 0.3 x10^3/uL (0.0-0.7) Basophils # (Auto) 0.0 x10^3/uL (0.0-0.2) Sodium Level 138 mmol/L (136-145) Potassium Level 3.6 mmol/L (3.5-5.1) Chloride Level 106 mmol/L (98-107) Carbon Dioxide Level 25 mmol/L (21-32) Anion Gap 7 (6-14) Blood Urea Nitrogen 12 mg/dL (7-20) Creatinine 0.9 mg/dL (0.6-1.0) Estimated GFR (Cockcroft-Gault) 59.1 Glucose Level 142 mg/dL (70-99) Calcium Level 8.1 mg/dL (8.5-10.1) Glucose (Fingerstick) 119 mg/dL (70-99) 119 mg/dL (70-99) 155 mg/dL (70-99) Test 02/09/20 07:00 Glucose (Fingerstick) 125 mg/dL (70-99) Comment Review of Relevant I have reviewed the following items goldy (where applicable) has been applied. Medications: Current Medications Medications (Trade) Dose Ordered Sig/Nelly Route PRN Reason Start Time Stop Time Status Last Admin Dose Admin Acetaminophen/ Hydrocodone Bitart (Lortab 5/325) 1 tab PRN Q4HRS PRN PO PAIN 02/08/20 14:30 02/08/20 17:17 Docusate Sodium (Colace) 100 mg DAILY PO 02/09/20 09:00 02/09/20 07:59 Apixaban (Eliquis) 2.5 mg BID PO 02/08/20 21:00 02/09/20 08:00 Justifications for Admission Other Justification RAHEL JOHN MD Feb 09, 2020 08:37
[2020-02-09] MEDS: ANTI-COAG MONITOR BY PHARMACY. MC PRN (08:38)
[2020-02-09] MEDS ORDERED: FUROSEMIDE 40 MG/4 ML VIAL. IVP ONE (08:45)
--- NOTE | 2020-02-09 09:52 | PDOC ---
SURGICAL PROGRESS NOTE DATE: 02/09/20 TIME: 09:50 Subjective up in chair SOA today ate a little yesterday--low appetite, no n/v Vital Signs Vital Signs Date Time Temp Pulse Resp B/P (MAP) Pulse Ox O2 Delivery O2 Flow Rate FiO2 02/09/20 08:00 98 185/86 02/09/20 07:00 97.4 26 94 Nasal Cannula 3.0 97.4 I&O Intake and Output 02/09/20 07:00 Intake Total 1428 ml Output Total 513 ml Balance 915 ml Intake Oral 1400 ml IV Total 28 ml Output Urine Total 353 ml Drainage Total 160 ml # Bowel Movements 1 General: Alert, Cooperative Abdomen: Soft, Other (drain serosang ) Labs Laboratory Tests Test 02/07/20 11:41 02/07/20 18:58 02/08/20 07:05 02/08/20 09:50 Glucose (Fingerstick) 85 mg/dL (70-99) 146 mg/dL (70-99) 129 mg/dL (70-99) White Blood Count 13.5 x10^3/uL (4.0-11.0) Red Blood Count 3.73 x10^6/uL (3.50-5.40) Hemoglobin 11.2 g/dL (12.0-15.5) Hematocrit 35.5 % (36.0-47.0) Mean Corpuscular Volume 95 fL (79-100) Mean Corpuscular Hemoglobin 30 pg (25-35) Mean Corpuscular Hemoglobin Concent 32 g/dL (31-37) Red Cell Distribution Width 14.4 % (11.5-14.5) Platelet Count 429 x10^3/uL (140-400) Neutrophils (%) (Auto) 82 % (31-73) Lymphocytes (%) (Auto) 3 % (24-48) Monocytes (%) (Auto) 12 % (0-9) Eosinophils (%) (Auto) 2 % (0-3) Basophils (%) (Auto) 0 % (0-3) Neutrophils # (Auto) 11.1 x10^3/uL (1.8-7.7) Lymphocytes # (Auto) 0.4 x10^3/uL (1.0-4.8) Monocytes # (Auto) 1.6 x10^3/uL (0.0-1.1) Eosinophils # (Auto) 0.3 x10^3/uL (0.0-0.7) Basophils # (Auto) 0.0 x10^3/uL (0.0-0.2) Sodium Level 138 mmol/L (136-145) Potassium Level 3.6 mmol/L (3.5-5.1) Chloride Level 106 mmol/L (98-107) Carbon Dioxide Level 25 mmol/L (21-32) Anion Gap 7 (6-14) Blood Urea Nitrogen 12 mg/dL (7-20) Creatinine 0.9 mg/dL (0.6-1.0) Estimated GFR (Cockcroft-Gault) 59.1 Glucose Level 142 mg/dL (70-99) Calcium Level 8.1 mg/dL (8.5-10.1) Test 02/08/20 11:45 02/08/20 16:32 02/08/20 20:48 02/09/20 07:00 Glucose (Fingerstick) 119 mg/dL (70-99) 119 mg/dL (70-99) 155 mg/dL (70-99) 125 mg/dL (70-99) Laboratory Tests Test 02/08/20 11:45 02/08/20 16:32 02/08/20 20:48 02/09/20 07:00 Glucose (Fingerstick) 119 mg/dL (70-99) 119 mg/dL (70-99) 155 mg/dL (70-99) 125 mg/dL (70-99) Problem List lasix per IPC/cards final path pending Justicifation of Admission Dx: Justifications for Admission: Justification of Admission Dx: Yes Aspiration Pneumonia: Hemodynamic Instability NICOLE PAINTER FLORAL DESIGN TEACHER Feb 09, 2020 09:51
[2020-02-09 10:39] VITALS: BP 156/76
--- NOTE | 2020-02-09 13:18 | NUR ---
SS following up with discharge planning. SS reviewed pt chart and discussed with pt RN. Pt is currently requiring oxygen. 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 Pt on soft diet now. PT/OT ordered. COVID19 negative. SS will continue to follow for discharge planning.
--- NOTE | 2020-02-09 14:30 | RAD ---
EXAM: PORTABLE CHEST 1V INDICATION: Reason: new SOB / Spl. Instructions: / History: . TECHNIQUE: Single view COMPARISON: 08/30/2018 chest x-ray FINDINGS: The heart size is normal. The great vessels appear unremarkable. Left hilar calcified nodules are present. Lungs show interval worsening atelectasis at the left lung base. No pneumothorax. Hazy densities of the bilateral lung bases are suggestive of bilateral pleural effusions, left greater than right and an increase on the left in the interval. There are no significant osseous abnormalities. IMPRESSION: Increasing bilateral pleural effusions and associated atelectasis, more conspicuous on the left. Electronically signed by: Reji Rodriguez MD (02/09/2020 2:27 PM) [id number]
--- NOTE | 2020-02-09 14:40 | PDOC2 ---
CONSULT Date of Consult Date of Consult DATE: 02/09/20 TIME: 14:31 Reason for Consult Reason for Consult: Recurrent colon cancer Referring Physician Referring Physician: Dr. Deleon Identification/Chief Complaint Chief Complaint Abdominal pain Source Source: Chart review, Patient History of Present Illness Reason for Visit: Rosanne Ovalle is an 89-year-old female who has been admitted for surgical management of recurrent colon cancer. She was initially diagnosed with a splenic flexure colonic mass in 02/2019. She underwent a left hemicolectomy in 03/2019 with pathology showing T3N0 disease. She subsequently established care with Dr. Patricia Cr and after discussion of potential benefits and risks, elected against adjuvant chemotherapy. She had done well since then until 1 to 2 months ago when she noticed new onset left upper quadrant abdominal pain that has gradually worsened. She received a CT of the abdomen and pelvis with contrast for further evaluation and this showed a 5 cm mass in the splenic flexure mesocolon and a nearby 3 cm mass. Additional staging investigations did not show any other sites of disease. She was seen by me in consultation in my office. I recommended consideration of surgical resection given local recurrence of disease and lack of distant metastasis. She had met with Dr. Deleon and elected to undergo surgical resection. She is currently postop day 6 after laparoscopic converted to open exploration, excision of 2 x LUQ peritoneal rib implants, distal pancreatectomy and splenectomy, excision of small bowel mesentery mass. She reports that her pain has completely resolved after surgery. Past Medical History Cardiovascular: CAD, HTN, Hyperlipidemia GI: GERD Heme/Onc: Anemia NOS, Cancer (colon ) Musculoskeletal: Osteoarthritis Renal/: Chronic renal insuff Endocrine: Diabetes Past Surgical History Past Surgical History: Appendectomy, Cholecystectomy, Cataract Removal, Total hip replacement, Total knee replacement (right ), Hysterectomy, Colon Resection, Other ( abdominal aortic aneurysm repair) Family History Family History: Cancer (breast ), Diabetes, Hypertension Social History No ALCOHOL: none Drugs: None Lives: with Family Current Medications Current Medications Current Medications Ondansetron HCl (Zofran) 4 mg PRN Q6HRS PRN IV NAUSEA/VOMITING; Start 02/03/20 at 07:00; Stop 02/03/20 at 20:00; Status DC Fentanyl Citrate (Fentanyl 2ml Vial) 25 mcg PRN Q5MIN PRN IV MILD PAIN 1-3; Start 02/03/20 at 07:00; Stop 02/03/20 at 20:00; Status DC Fentanyl Citrate (Fentanyl 2ml Vial) 50 mcg PRN Q5MIN PRN IV MODERATE TO SEVERE PAIN; Start 02/03/20 at 07:00; Stop 02/03/20 at 20:00; Status DC Morphine Sulfate (Morphine Sulfate) 1 mg PRN Q10MIN PRN IV SEVERE PAIN 7-10; Start 02/03/20 at 07:00; Stop 02/03/20 at 20:00; Status DC Ringer's Solution 1,000 ml @ 30 mls/hr Q24H IV Last administered on 02/03/20at 17:04; Start 02/03/20 at 07:00; Stop 02/03/20 at 18:59; Status DC Lidocaine HCl (Xylocaine-Mpf 1% 2ml Vial) 2 ml PRN 1X PRN ID PRIOR TO IV START; Start 02/03/20 at 07:00; Stop 02/03/20 at 20:00; Status DC Hydromorphone HCl (Dilaudid) 0.5 mg PRN Q10MIN PRN IV SEV PAIN, Second choice; Start 02/03/20 at 07:00; Stop 02/03/20 at 20:00; Status DC Prochlorperazine Edisylate (Compazine) 5 mg PACU PRN PRN IV NAUSEA, MRX1; Start 02/03/20 at 07:00; Stop 02/03/20 at 20:00; Status DC Cefoxitin Sodium (Mefoxin) 2 gm 1X PREOP PRN IVP PRIOR TO SURGERY Last administered on 02/03/20at 13:09; Start 02/03/20 at 08:00; Stop 02/04/20 at 10:52; Status DC Cefoxitin Sodium (Mefoxin) 1 gm STK-MED ONCE IVP ; Start 02/03/20 at 10:31; Stop 02/03/20 at 10:31; Status DC Lidocaine HCl (Lidocaine Pf 2% Vial) 5 ml STK-MED ONCE .ROUTE ; Start 02/03/20 at 10:55; Stop 02/03/20 at 10:55; Status DC Etomidate (Amidate) 20 mg STK-MED ONCE IV ; Start 02/03/20 at 10:55; Stop 02/03/20 at 10:55; Status DC Dexamethasone Sodium Phosphate (Decadron) 4 mg STK-MED ONCE .ROUTE ; Start 02/03/20 at 10:55; Stop 02/03/20 at 10:55; Status DC Rocuronium [place] (Zemuron) 100 mg STK-MED ONCE .ROUTE ; Start 02/03/20 at 10:55; Stop 02/03/20 at 10:55; Status DC Fentanyl Citrate (Fentanyl 2ml Vial) 100 mcg STK-MED ONCE .ROUTE ; Start 02/03/20 at 10:55; Stop 02/03/20 at 10:55; Status DC Dexamethasone Sodium Phosphate (Decadron) 4 mg STK-MED ONCE .ROUTE ; Start 02/03/20 at 10:58; Stop 02/03/20 at 10:59; Status DC Ondansetron HCl (Zofran) 4 mg STK-MED ONCE .ROUTE ; Start 02/03/20 at 10:58; Stop 02/03/20 at 10:59; Status DC Phenylephrine HCl (Pierre-Synephrine Inj) 10 mg STK-MED ONCE .ROUTE ; Start 02/03/20 at 10:59; Stop 02/03/20 at 10:59; Status DC Insulin Human Lispro (HumaLOG VIAL for OP,RR ONLY) 0-10 units PRN Q1HR PRN SQ PER PROTOCOL Last administered on 02/03/20at 11:37; Start 02/03/20 at 11:30; Stop 02/04/20 at 11:29; Status DC Bupivacaine HCl/ Epinephrine Bitart (Sensorcain-Epi 0.5%-1:[id number] Mpf) 30 ml STK-MED ONCE .ROUTE Last administered on 02/03/20at 13:37; Start 02/03/20 at 13:34; Stop 02/03/20 at 13:34; Status DC Cellulose (Surgicel Hemostat 4x8) 1 each STK-MED ONCE .ROUTE Last administered on 02/03/20at 15:00; Start 02/03/20 at 14:35; Stop 02/03/20 at 14:35; Status DC Neostigmine [place] (Neostigmine Methylsulfate) 5 mg STK-MED ONCE .ROUTE ; Start 02/03/20 at 14:38; Stop 02/03/20 at 14:38; Status DC Glycopyrrolate (Robinul) 1 mg STK-MED ONCE .ROUTE ; Start 02/03/20 at 14:38; Stop 02/03/20 at 14:38; Status DC Ketamine HCl (Ketamine) 50 mg STK-MED ONCE .ROUTE ; Start 02/03/20 at 15:11; Stop 02/03/20 at 15:11; Status DC Sevoflurane (Ultane) 90 ml STK-MED ONCE IH ; Start 02/03/20 at 15:24; Stop 02/03/20 at 15:24; Status DC Enoxaparin Sodium (Lovenox 40mg Syringe) 40 mg Q12HR SQ Last administered on 02/04/20at 09:52; Start 02/03/20 at 21:00; Stop 02/04/20 at 10:53; Status DC Sodium Chloride (Normal Saline Flush) 3 ml QSHIFT PRN IV AFTER MEDS AND BLOOD DRAWS; Start 02/03/20 at 17:00 Ringer's Solution 1,000 ml @ 100 mls/hr Q10H IV Last administered on 02/09/20at 01:21; Start 02/03/20 at 17:00; Stop 02/09/20 at 08:24; Status DC Naloxone HCl (Narcan) 0.4 mg PRN Q2MIN PRN IV SEE INSTRUCTIONS; Start 02/03/20 at 17:00 Sodium Chloride 1,000 ml @ 25 mls/hr Q24H IV Last administered on 02/06/20at 06:13; Start 02/03/20 at 17:00; Stop 02/08/20 at 15:42; Status DC Morphine Sulfate 30 ml @ 0 mls/hr CONT PRN PRN IV PER PROTOCOL Last administered on 02/06/20at 09:25; Start 02/03/20 at 17:00; Stop 02/08/20 at 14:29; Status DC Ondansetron HCl (Zofran) 4 mg PRN Q6HRS PRN IVP NAUESA, 1ST CHOICE; Start 02/03/20 at 17:00 Amlodipine Besylate (Norvasc) 5 mg DAILY08 PO Last administered on 02/09/20at 08:00; Start 02/04/20 at 08:00 Atorvastatin Calcium (Lipitor) 40 mg QODAY PO Last administered on 02/09/20at 07:59; Start 02/05/20 at 09:00 Famotidine (Pepcid) 20 mg PRN QHS PRN PO INDIGESTION Last administered on 02/08/20at 08:00; Start 02/03/20 at 17:15 Latanoprost (Xalatan) 1 drop QHS OU Last administered on 02/08/20at 20:38; Start 02/03/20 at 21:00 Metformin HCl (Glucophage) 250 mg BIDWMEALS PO ; Start 02/04/20 at 08:00; Stop 02/03/20 at 20:19; Status DC Losartan Potassium (Cozaar) 100 mg DAILY PO Last administered on 02/09/20at 08:00; Start 02/04/20 at 09:00 Metoprolol Tartrate (Lopressor) 100 mg BID PO Last administered on 02/09/20at 07:59; Start 02/03/20 at 21:00 Multivitamins (Thera M Plus) 1 tab DAILY PO Last administered on 02/09/20at 07:59; Start 02/04/20 at 09:00 Ondansetron HCl (Zofran Odt) 8 mg PRN BID PRN PO NAUSEA/VOMITING; Start 02/03/20 at 17:30 Morphine Sulfate 30 ml @ As Directed STK-MED ONCE IV ; Start 02/03/20 at 17:11; Stop 02/03/20 at 17:12; Status DC Metoprolol Tartrate (Lopressor Vial) 5 mg Q6HRS IVP Last administered on 02/06/20at 06:13; Start 02/03/20 at 21:00; Stop 02/06/20 at 09:51; Status DC Diltiazem HCl (Cardizem Iv Push) 10 mg 1X ONCE IVP Last administered on 02/03/20at 20:51; Start 02/03/20 at 21:00; Stop 02/03/20 at 21:01; Status DC Diltiazem HCl (Cardizem Iv Push) 10 mg 1X ONCE IVP Last administered on 02/04/20at 08:08; Start 02/04/20 at 07:00; Stop 02/04/20 at 07:01; Status DC Diltiazem HCl (Cardizem 24hr Cd) 180 mg DAILY PO ; Start 02/04/20 at 09:00; Stop 02/04/20 at 13:17; Status DC Diltiazem HCl 125 mg/Sodium Chloride 125 ml @ 5 mls/hr CONT PRN IV SEE I/O RECORD Last administered on 02/05/20at 23:22; Start 02/04/20 at 09:45 Enoxaparin Sodium (Lovenox 40mg Syringe) 40 mg DAILY SQ Last administered on 02/08/20at 08:02; Start 02/05/20 at 09:00; Stop 02/08/20 at 16:58; Status DC Magnesium Sulfate 50 ml @ 25 mls/hr 1X ONCE IV Last administered on 02/05/20at 16:27; Start 02/05/20 at 13:15; Stop 02/05/20 at 15:14; Status DC Metoprolol Tartrate (Lopressor Vial) 5 mg PRN Q6HRS PRN IVP TACHYCARDIA; Start 02/06/20 at 09:45 Digoxin (Lanoxin) 250 mcg 1X ONCE IV Last administered on 02/06/20at 09:45; Start 02/06/20 at 09:45; Stop 02/06/20 at 09:52; Status DC Acetaminophen/ Hydrocodone Bitart (Lortab 5/325) 1 tab PRN Q4HRS PRN PO PAIN Last administered on 02/08/20at 17:17; Start 02/08/20 at 14:30 Docusate Sodium (Colace) 100 mg DAILY PO Last administered on 02/09/20at 07:59; Start 02/09/20 at 09:00 Apixaban (Eliquis) 2.5 mg BID PO Last administered on 02/09/20at 08:00; Start 02/08/20 at 21:00 Info (Anti-Coagulation Monitoring By Pharmacy) 1 each PRN DAILY PRN MC SEE COMMENTS Last administered on 02/09/20at 08:38; Start 02/09/20 at 08:30 Furosemide (Lasix) 40 mg 1X ONCE IVP Last administered on 02/09/20at 09:06; Start 02/09/20 at 08:45; Stop 02/09/20 at 08:46; Status DC Active Scripts Active Reported Zofran (Ondansetron Hcl) 8 Mg Tablet 8 Mg PO BID PRN Oxycodone Hcl 20 Mg Tablet 10 Mg PO PRN PRN Centrum Silver Women Tablet (Multivits-Min/Iron/FA/Lutein) 1 Each Tablet 1 Each PO DAILY Pepcid (Famotidine) 20 Mg Tablet 20 Mg PO HS PRN Atorvastatin Calcium 40 Mg Tablet 1 Tab PO QODAY Eliquis (Apixaban) 2.5 Mg Tablet 2.5 Mg PO BID Metoprolol Tartrate 100 Mg Tablet 1 Tab PO BID LAST DOSE GIVEN: DATE:08/30/16 TIME:829 Amlodipine Besylate 5 Mg Tablet 1 Tab PO DAILY08 Last dose given: 8:30 a.m. Next dose due: 08-30-16 8:30 a.m. Latanoprost 2.5 Ml Drops 1 Drop EACHEYE QHS Last dose given: 08-31-16 9:00 p.m. Next dose due: tonight Losartan Potassium 100 Mg Tablet 1 Tab PO DAILY Last dose given: 8:30 a.m. Next dose due: 08-30-16 8:30 a.m. Metformin Hcl 500 Mg Tablet 250 Mg PO BIDWMEALS Last dose given: 09/01/16 8:30 a.m. Next dose due: tonight Allergies Allergies: Coded Allergies: MAHOGANY Inhibitors (Verified Allergy, Intermediate, 12/05/19) Histamine H2 Inhibitors (Verified Allergy, Intermediate, Rash, 12/05/19) aspirin (Verified Adverse Reaction, Intermediate, GASTRIC IRRITATION, 04/09/19) ROS General: No: Chills, Night Sweats PSYCHOLOGICAL ROS: No: Anxiety, Behavioral Disorder Eyes: No Blurry vision, No Decreased vision HEENT: No: Heacaches, Visual Changes ALLERGY AND IMMUNOLOGY: No: Nasal Congestion Hematological and Lymphatic: No: Brusing, Night Sweats ENDOCRINE: YES: Malaise/lethargy; No: Mood Swings Respiratory: YES: Cough, Shortness of breath; No: Hemoptysis Cardiovascular: yes Edema Gastrointestinal: No Nausea, No Vomiting Genitourinary: No Dysuria, No Flank Pain Neurological: No Dizziness Skin: No Dry Skin Physical Exam General: Alert, Oriented X3 HEENT: Atraumatic Lungs: Other (Crackles heard) Heart: No murmurs Abdomen: Normal bowel sounds, Soft Skin: No rashes MUSCULOSKELETAL: Other (Lower extremity edema noted) Vitals VITALS Vital Signs Date Time Temp Pulse Resp B/P (MAP) Pulse Ox O2 Delivery O2 Flow Rate FiO2 02/09/20 10:39 97.8 90 24 156/76 (102) 92 Nasal Cannula 3.0 97.8 Labs Labs Laboratory Tests Test 02/07/20 18:58 02/08/20 07:05 02/08/20 09:50 02/08/20 11:45 Glucose (Fingerstick) 146 mg/dL (70-99) 129 mg/dL (70-99) 119 mg/dL (70-99) White Blood Count 13.5 x10^3/uL (4.0-11.0) Red Blood Count 3.73 x10^6/uL (3.50-5.40) Hemoglobin 11.2 g/dL (12.0-15.5) Hematocrit 35.5 % (36.0-47.0) Mean Corpuscular Volume 95 fL (79-100) Mean Corpuscular Hemoglobin 30 pg (25-35) Mean Corpuscular Hemoglobin Concent 32 g/dL (31-37) Red Cell Distribution Width 14.4 % (11.5-14.5) Platelet Count 429 x10^3/uL (140-400) Neutrophils (%) (Auto) 82 % (31-73) Lymphocytes (%) (Auto) 3 % (24-48) Monocytes (%) (Auto) 12 % (0-9) Eosinophils (%) (Auto) 2 % (0-3) Basophils (%) (Auto) 0 % (0-3) Neutrophils # (Auto) 11.1 x10^3/uL (1.8-7.7) Lymphocytes # (Auto) 0.4 x10^3/uL (1.0-4.8) Monocytes # (Auto) 1.6 x10^3/uL (0.0-1.1) Eosinophils # (Auto) 0.3 x10^3/uL (0.0-0.7) Basophils # (Auto) 0.0 x10^3/uL (0.0-0.2) Sodium Level 138 mmol/L (136-145) Potassium Level 3.6 mmol/L (3.5-5.1) Chloride Level 106 mmol/L (98-107) Carbon Dioxide Level 25 mmol/L (21-32) Anion Gap 7 (6-14) Blood Urea Nitrogen 12 mg/dL (7-20) Creatinine 0.9 mg/dL (0.6-1.0) Estimated GFR (Cockcroft-Gault) 59.1 Glucose Level 142 mg/dL (70-99) Calcium Level 8.1 mg/dL (8.5-10.1) Test 02/08/20 16:32 02/08/20 20:48 02/09/20 07:00 02/09/20 11:44 Glucose (Fingerstick) 119 mg/dL (70-99) 155 mg/dL (70-99) 125 mg/dL (70-99) 117 mg/dL (70-99) Laboratory Tests Test 02/08/20 16:32 02/08/20 20:48 02/09/20 07:00 02/09/20 11:44 Glucose (Fingerstick) 119 mg/dL (70-99) 155 mg/dL (70-99) 125 mg/dL (70-99) 117 mg/dL (70-99) Assessment/Plan Assessment/Plan Assessment: Recurrent colon cancer, MSI high Cancer related painresolved Postop day 6 after distal pancreatectomy/splenectomy and removal of recurrent cancer Normocytic anemia secondary acute blood loss Acute hypoxic respiratory failure Atrial fibrillation History of coronary artery disease Recommendations: -Continue with postoperative care per Dr. Deleon -Follow-up on surgical pathology -She will be seen in 1 month in follow-up visit to discuss systemic therapy -Given significant extensive disease noted on laparoscopy, I would plan on recommending pembrolizumab monotherapy due to MSI high disease -Follow-up will be arranged in my office -Rest per Dr. Karey Adams MD Medical Oncology/Hematology Ph: [phone] THOMAS ADAMS MD Feb 09, 2020 14:40
[2020-02-09 15:02] VITALS: BP 144/67
--- NOTE | 2020-02-09 16:26 | NUR ---
SS following up with discharge planning. PT recommended fpc unit. SS spoke with pt's son Fuentes, , and discussed. Pt's son reported that at this time he is not comfortable with pt going to rehab facility. He reported that he was going to discuss with other family members and contact SS tomorrow. Pt's son reported that pt has seven children and has strong family support at home. SS discussed home healthcare and oxygen set up with pt's son. SS will follow up with pt's family tomorrow.
[2020-02-09 19:25] VITALS: BP 137/77
[2020-02-09] MEDS: HYDROcodone/APAP 5/325MG 1 TAB TABLET PO PRN (20:51)
[2020-02-09] MEDS: LATANOPROST 0.005% OPHTH SOLUTION 2.5ML BOTTLE. OU SCH (20:52)
[2020-02-09 22:37] VITALS: BP 134/64
[2020-02-10] VITALS (12 sets, daily range): BP systolic 127–178; BP diastolic 72–90
[2020-02-10 05:37] LABS: CALCIUM 8.6 mg/dL (8.5-10.1); CREATININE 0.7 mg/dL (0.6-1.0); MAGNESIUM 1.4 mg/dL (1.8-2.4); POTASSIUM 3.4 mmol/L (3.5-5.1)
--- NOTE | 2020-02-10 07:44 | PDOC ---
[facility] PROGRESS NOTE Date of Service DOS: DATE: 02/10/20 TIME: 07:42 Chief Complaint Chief Complaint A/P: Postop colon resection for a large mass in the splenic flexure CVA in 10/2015 Coronary artery disease with previous stent placement Type 2 diabetes Hyperlipidemia Hypertension Osteoarthritis Vitamin D deficiency Afib CKD Glaucoma Duodenal ulcer Hypoxia - new Vasomotor nephropathy - improved renal function with IVF resuscitation History of Present Illness History of Present Illness Ms Ovalle is an 88yo F w/ PMHx CVA in 10/2015, previous stent placement with coronary artery disease, type 2 diabetes, hyperlipidemia, hypertension, osteoarthritis and vitamin D deficiency who underwent a colon resection 04/09/2019 with successful reanastomosis, recovering well. Seen in consultation for medical management after recurrence of cancer noted. 02/02: Laparoscopic converted to open ex lap with excision of 2 left lower quadrant peritoneal rib implants, distal pancreatectomy and splenectomy, excision of small bowel mesenteric mass. 02/03: Patient with uncontrolled heart rate on cardizem GTT. 02/04: continues to need cardizem drip, no complaints during my visit. 02/05: The patient's pain is well controlled, the patient is complaining of discomfort from the NG tube and hoping to get it discontinued later in the day. Patient relates to me that she has been passing gases, I have discussed this with the surgical attending ROBBIE 02/08: Progressively more short of breath now on 3 L nasal cannulated oxygen. Pain well controlled. NGT out currently. Seen by hematology/oncology Diuresed 3 L after Lasix administration. On room air now. D/w family bedside she is improving. No CP or SOB at this time. Swelling improved. Pain well controlled. Good appetite. Vitals/I&O Vitals/I&O: Vital Signs Date Time Temp Pulse Resp B/P (MAP) Pulse Ox O2 Delivery O2 Flow Rate FiO2 02/10/20 02:57 98.4 99 20 138/74 (95) 97 Nasal Cannula 3.0 98.4 I & O 02/09/20 02/09/20 02/10/20 15:00 23:00 07:00 Intake Total 240 ml 290 ml 200 ml Output Total 1845 ml 1150 ml 1440 ml Balance -1605 ml -860 ml -1240 ml Physical Exam General: Alert, Oriented X3 Heart: No murmurs Lungs: Clear Abdomen: Normal bowel sounds, Soft Extremities: No edema, Normal pulses Skin: No rashes Labs Labs: Laboratory Tests Test 02/09/20 11:44 02/09/20 16:48 02/10/20 04:02 02/10/20 07:31 Glucose (Fingerstick) 117 mg/dL (70-99) 114 mg/dL (70-99) 104 mg/dL (70-99) Sodium Level 141 mmol/L (136-145) Potassium Level 3.4 mmol/L (3.5-5.1) Chloride Level 102 mmol/L (98-107) Carbon Dioxide Level 32 mmol/L (21-32) Anion Gap 7 (6-14) Blood Urea Nitrogen 6 mg/dL (7-20) Creatinine 0.7 mg/dL (0.6-1.0) Estimated GFR (Cockcroft-Gault) 79.0 Glucose Level 96 mg/dL (70-99) Calcium Level 8.6 mg/dL (8.5-10.1) Magnesium Level 1.4 mg/dL (1.8-2.4) Comment Review of Relevant I have reviewed the following items goldy (where applicable) has been applied. Medications: Current Medications Medications (Trade) Dose Ordered Sig/Nelly Route PRN Reason Start Time Stop Time Status Last Admin Dose Admin Docusate Sodium (Colace) 100 mg DAILY PO 02/09/20 09:00 02/09/20 07:59 Info (Anti-Coagulation Monitoring By Pharmacy) 1 each PRN DAILY PRN MC SEE COMMENTS 02/09/20 08:30 02/09/20 08:38 Furosemide (Lasix) 40 mg 1X ONCE IVP 02/09/20 08:45 02/09/20 08:46 DC 02/09/20 09:06 Justifications for Admission Other Justification RAHEL JOHN MD Feb 10, 2020 07:44
[2020-02-10] MEDS ORDERED: POTASSIUM BICARB 20 MEQ EFFERVESCENT TABLET. PO ONE (07:45)
[2020-02-10] MEDS ORDERED: MAGNESIUM SULFATE 2GM 50 ML IV ONE (07:45)
[2020-02-10] MEDS: POTASSIUM CHLORIDE 10MEQ 100 ML IV SCH ×2 (08:00→09:00)
[2020-02-10] MEDS: MULTIVITAMIN with MINERAL TABLET. PO SCH (08:40)
[2020-02-10] MEDS: amLODIPine BESYLATE 5 MG TABLET PO SCH (08:41)
[2020-02-10] MEDS: METOPROLOL TART IMMED RELEASE 50 MG TABLET. PO SCH ×2 (08:41→21:36)
[2020-02-10] MEDS: APIXABAN 2.5 MG TABLET. PO SCH ×2 (08:41→21:36)
[2020-02-10] MEDS: LOSARTAN POTASSIUM 50 MG TABLET. PO SCH (08:41)
[2020-02-10] MEDS: DOCUSATE SODIUM 100 MG CAPSULE. PO SCH (08:42)
[2020-02-10] MEDS: ANTI-COAG MONITOR BY PHARMACY. MC PRN (08:57)
[2020-02-10] MEDS: HYDROcodone/APAP 5/325MG 1 TAB TABLET PO PRN ×3 (09:15→23:00)
--- NOTE | 2020-02-10 09:33 | PDOC ---
SURGICAL PROGRESS NOTE DATE: 02/10/20 TIME: 09:32 Subjective tolerating diet no n/v main pain is in her back Vital Signs Vital Signs Date Time Temp Pulse Resp B/P (MAP) Pulse Ox O2 Delivery O2 Flow Rate FiO2 02/10/20 08:41 121 178/81 02/10/20 08:00 Room Air 02/10/20 07:00 97.9 16 97 2.0 97.9 I&O Intake and Output 02/10/20 07:00 Intake Total 730 ml Output Total 4435 ml Balance -3705 ml Intake Oral 730 ml Output Urine Total 4125 ml Drainage Total 310 ml # Voids 1 # Bowel Movements 1 General: Alert, Oriented X3, Cooperative Abdomen: Soft, Other (dressing dry, garett serosang) Labs Laboratory Tests Test 02/08/20 09:50 02/08/20 11:45 02/08/20 16:32 02/08/20 20:48 White Blood Count 13.5 x10^3/uL (4.0-11.0) Red Blood Count 3.73 x10^6/uL (3.50-5.40) Hemoglobin 11.2 g/dL (12.0-15.5) Hematocrit 35.5 % (36.0-47.0) Mean Corpuscular Volume 95 fL (79-100) Mean Corpuscular Hemoglobin 30 pg (25-35) Mean Corpuscular Hemoglobin Concent 32 g/dL (31-37) Red Cell Distribution Width 14.4 % (11.5-14.5) Platelet Count 429 x10^3/uL (140-400) Neutrophils (%) (Auto) 82 % (31-73) Lymphocytes (%) (Auto) 3 % (24-48) Monocytes (%) (Auto) 12 % (0-9) Eosinophils (%) (Auto) 2 % (0-3) Basophils (%) (Auto) 0 % (0-3) Neutrophils # (Auto) 11.1 x10^3/uL (1.8-7.7) Lymphocytes # (Auto) 0.4 x10^3/uL (1.0-4.8) Monocytes # (Auto) 1.6 x10^3/uL (0.0-1.1) Eosinophils # (Auto) 0.3 x10^3/uL (0.0-0.7) Basophils # (Auto) 0.0 x10^3/uL (0.0-0.2) Sodium Level 138 mmol/L (136-145) Potassium Level 3.6 mmol/L (3.5-5.1) Chloride Level 106 mmol/L (98-107) Carbon Dioxide Level 25 mmol/L (21-32) Anion Gap 7 (6-14) Blood Urea Nitrogen 12 mg/dL (7-20) Creatinine 0.9 mg/dL (0.6-1.0) Estimated GFR (Cockcroft-Gault) 59.1 Glucose Level 142 mg/dL (70-99) Calcium Level 8.1 mg/dL (8.5-10.1) Glucose (Fingerstick) 119 mg/dL (70-99) 119 mg/dL (70-99) 155 mg/dL (70-99) Test 02/09/20 07:00 02/09/20 11:44 02/09/20 16:48 02/10/20 04:02 Glucose (Fingerstick) 125 mg/dL (70-99) 117 mg/dL (70-99) 114 mg/dL (70-99) Sodium Level 141 mmol/L (136-145) Potassium Level 3.4 mmol/L (3.5-5.1) Chloride Level 102 mmol/L (98-107) Carbon Dioxide Level 32 mmol/L (21-32) Anion Gap 7 (6-14) Blood Urea Nitrogen 6 mg/dL (7-20) Creatinine 0.7 mg/dL (0.6-1.0) Estimated GFR (Cockcroft-Gault) 79.0 Glucose Level 96 mg/dL (70-99) Calcium Level 8.6 mg/dL (8.5-10.1) Magnesium Level 1.4 mg/dL (1.8-2.4) Test 02/10/20 07:31 Glucose (Fingerstick) 104 mg/dL (70-99) Laboratory Tests Test 02/09/20 11:44 02/09/20 16:48 02/10/20 04:02 02/10/20 07:31 Glucose (Fingerstick) 117 mg/dL (70-99) 114 mg/dL (70-99) 104 mg/dL (70-99) Sodium Level 141 mmol/L (136-145) Potassium Level 3.4 mmol/L (3.5-5.1) Chloride Level 102 mmol/L (98-107) Carbon Dioxide Level 32 mmol/L (21-32) Anion Gap 7 (6-14) Blood Urea Nitrogen 6 mg/dL (7-20) Creatinine 0.7 mg/dL (0.6-1.0) Estimated GFR (Cockcroft-Gault) 79.0 Glucose Level 96 mg/dL (70-99) Calcium Level 8.6 mg/dL (8.5-10.1) Magnesium Level 1.4 mg/dL (1.8-2.4) Assessment/Plan supportive care Justicifation of Admission Dx: Justifications for Admission: Justification of Admission Dx: Yes Aspiration Pneumonia: Hemodynamic Instability NICOLE PAINTER APRN Feb 10, 2020 09:33
--- NOTE | 2020-02-10 11:39 | NUR ---
SS following up with discharge planning. SS reviewed pt chart and discussed with pt RN. Pt is currently on room air. SS contacted pt's son, Fuentes, , and discussed discharge planning. Pt's son reported that family does not want pt to go to facility. He reported that they are agreeable to home healthcare with no preference of company. Nurse navigator to contact son and discuss home healthcare further. SS will continue to follow for discharge planning.
--- NOTE | 2020-02-10 12:22 | PDOC ---
[facility] HU[facility]HRI[facility] HOSPITAL PHARMACIST 02/10/20 1222: CARDIO Progress Notes Date and Time Date of Service 02/10/20 Time of Evaluation 1222 Subjective Subjective: No Chest Pain, No shortness of breath, No Palpitations, Other Vitals Vitals Vital Signs Date Time Temp Pulse Resp B/P (MAP) Pulse Ox O2 Delivery O2 Flow Rate FiO2 02/10/20 09:54 121 178/81 02/10/20 08:00 Room Air 02/10/20 07:00 97.9 16 97 2.0 97.9 Weight Weight [ ] Input and Output Intake and Output Intake and Output 02/10/20 07:00 Intake Total 730 ml Output Total 4435 ml Balance -3705 ml Intake Oral 730 ml Output Urine Total 4125 ml Drainage Total 310 ml # Voids 1 # Bowel Movements 1 Laboratory Labs Laboratory Tests Test 02/09/20 16:48 02/10/20 04:02 02/10/20 07:31 Glucose (Fingerstick) 114 mg/dL (70-99) 104 mg/dL (70-99) Sodium Level 141 mmol/L (136-145) Potassium Level 3.4 mmol/L (3.5-5.1) Chloride Level 102 mmol/L (98-107) Carbon Dioxide Level 32 mmol/L (21-32) Anion Gap 7 (6-14) Blood Urea Nitrogen 6 mg/dL (7-20) Creatinine 0.7 mg/dL (0.6-1.0) Estimated GFR (Cockcroft-Gault) 79.0 Glucose Level 96 mg/dL (70-99) Calcium Level 8.6 mg/dL (8.5-10.1) Magnesium Level 1.4 mg/dL (1.8-2.4) Physical Exam HEENT: Neck Supple W Full Motion Chest: Symmetric LUNGS: Other (diminished bases) Heart: irregularly irregular (AFIB rate controlled ) Abdomen: Other (SILVIA drain intact ) Extremities: Other (trace bilateral LE edema ) Neurology: alert, follow commands, other ([place]) Assessment Assessment 1. Colon CA s/p colon resection 03/2019; recurrent with metastatic disease. 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 2. AFIB; newly diagnosed. currently in AFIB with intermittent RVR 3. CAD s/p PCI/stenting; clinically stable. Recent echo with preserved LV systolic function 4. Acute on chronic diastolic CHF; improved with diuresis 5. Hypertension; labile today 5. Hyperlipidemia; statin therapy 6. Diabetes, II; as per PCP 7. CKD; Cr stable 8. Hypomagnesemia, hypomagnesemia; replaced. Recommendations Continue metoprolol for rate control Will start Amidoarone as rate remains uncontrolled Eliquis for stroke prophylaxis Will give dose of Lasix today Monitor lytes and replace as warranted Continue post-op management as per GS team Consider outpatient CV if she remains in AFIB Supportive care Justicifation of Admission Dx: Justifications for Admission: Justification of Admission Dx: Yes Aspiration Pneumonia: Hemodynamic Instability SHADY DELGADILLO MD 02/10/202105: CARDIO Progress Notes Assessment Assessment Patient seen and examined. Agree with PIPE FITTER SUPERVISOR's assessment and plan. Ac on chr diast HF better compensated. Continue diuretics CAD clinically stable Tele showed paroxysms of AF, agree with amiodarone for antiarrhythmic therapy Continue eliquis for stroke prophylaxis Continue post op care per GS team UMA HUMPHRIES APRN Feb 10, 2020 12:22 SHADY DELGADILLO MD Feb 10, 2020 21:06
[2020-02-10] MEDS ORDERED: POTASSIUM CHLORIDE 20 MEQ TABLET.ER. PO ONE (14:45)
[2020-02-10] MEDS ORDERED: AMIODARONE 150 MG in IV DEXTROSE 5% 100ML 100 ML IV ONE (14:45)
[2020-02-10] MEDS ORDERED: FUROSEMIDE 20 MG/2 ML VIAL. IVP ONE (14:45)
[2020-02-10] MEDS: AMIODARONE 450 MG in IV DEXTROSE 5% 250 ML IV PRN ×2 (15:07→23:02)
[2020-02-10] MEDS: LATANOPROST 0.005% OPHTH SOLUTION 2.5ML BOTTLE. OU SCH (21:42)
[2020-02-11] VITALS (8 sets, daily range): BP systolic 117–149; BP diastolic 66–91
[2020-02-11 04:38] LABS: CALCIUM 8.7 mg/dL (8.5-10.1); CREATININE 0.7 mg/dL (0.6-1.0); MAGNESIUM 2.1 mg/dL (1.8-2.4); POTASSIUM 3.5 mmol/L (3.5-5.1)
--- NOTE | 2020-02-11 08:20 | PDOC ---
[facility] PROGRESS NOTE Date of Service DOS: DATE: 02/11/20 TIME: 08:20 Chief Complaint Chief Complaint A/P: Postop colon resection for a large mass in the splenic flexure CVA in 10/2015 Coronary artery disease with previous stent placement Type 2 diabetes Hyperlipidemia Hypertension Osteoarthritis Vitamin D deficiency Afib CKD Glaucoma Duodenal ulcer Hypoxia - new Vasomotor nephropathy - improved renal function with IVF resuscitation History of Present Illness History of Present Illness Ms Ovalle is an 88yo F w/ PMHx CVA in 10/2015, previous stent placement with coronary artery disease, type 2 diabetes, hyperlipidemia, hypertension, osteoarthritis and vitamin D deficiency who underwent a colon resection 04/09/2019 with successful reanastomosis, recovering well. Seen in consultation for medical management after recurrence of cancer noted. 02/02: Laparoscopic converted to open ex lap with excision of 2 left lower quadrant peritoneal rib implants, distal pancreatectomy and splenectomy, excision of small bowel mesenteric mass. 02/03: Patient with uncontrolled heart rate on cardizem GTT. 02/04: continues to need cardizem drip, no complaints during my visit. 02/05: The patient's pain is well controlled, the patient is complaining of discomfort from the NG tube and hoping to get it discontinued later in the day. Patient relates to me that she has been passing gases, I have discussed this with the surgical attending ROBBIE 02/08: Progressively more short of breath now on 3 L nasal cannulated oxygen. Pain well controlled. NGT out currently. Seen by hematology/oncology 02/09: Diuresed 3 L after Lasix administration. Started on amiodarone per cardiology. On amio infusion currently. Seen with son, bedside. SILVIA drain has come out. On room air now. D/w family bedside she is improving. No CP or SOB at this time. Swelling improved. Pain well controlled. Good appetite. Vitals/I&O Vitals/I&O: Vital Signs Date Time Temp Pulse Resp B/P (MAP) Pulse Ox O2 Delivery O2 Flow Rate FiO2 02/11/20 06:06 88 136/86 (103) 02/11/20 03:27 97.8 18 94 Nasal Cannula 2.0 97.8 I & O 02/10/20 02/10/20 02/11/20 15:00 23:00 07:00 Intake Total 0 ml Output Total 150 ml 1330 ml 950 ml Balance -150 ml -1330 ml -950 ml Physical Exam General: Alert, Oriented X3, Cooperative Heart: No murmurs Lungs: Clear Abdomen: Soft, Other (dressing dry, garett serosang) Extremities: No edema, Normal pulses Skin: No rashes Labs Labs: Laboratory Tests Test 02/10/20 12:34 02/10/20 17:18 02/10/20 21:14 02/11/20 03:55 Glucose (Fingerstick) 123 mg/dL (70-99) 135 mg/dL (70-99) 150 mg/dL (70-99) Sodium Level 135 mmol/L (136-145) Potassium Level 3.5 mmol/L (3.5-5.1) Chloride Level 99 mmol/L (98-107) Carbon Dioxide Level 30 mmol/L (21-32) Anion Gap 6 (6-14) Blood Urea Nitrogen 6 mg/dL (7-20) Creatinine 0.7 mg/dL (0.6-1.0) Estimated GFR (Cockcroft-Gault) 79.0 Glucose Level 131 mg/dL (70-99) Calcium Level 8.7 mg/dL (8.5-10.1) Magnesium Level 2.1 mg/dL (1.8-2.4) Test 02/11/20 07:57 Glucose (Fingerstick) 121 mg/dL (70-99) Comment Review of Relevant I have reviewed the following items goldy (where applicable) has been applied. Medications: Current Medications Medications (Trade) Dose Ordered Sig/Nelly Route PRN Reason Start Time Stop Time Status Last Admin Dose Admin Furosemide (Lasix) 20 mg 1X ONCE IVP 02/10/20 14:45 02/10/20 14:51 DC 02/10/20 15:06 Potassium Chloride (Klor-Con) 20 meq 1X ONCE PO 02/10/20 14:45 02/10/20 14:51 DC 02/10/20 15:06 Amiodarone HCl 150 mg/Dextrose 103 ml @ 600 mls/hr 1X ONCE IV 02/10/20 14:45 02/10/20 14:55 DC 02/10/20 15:07 Amiodarone HCl 450 mg/Dextrose 259 ml @ 0 mls/hr CONT PRN IV SEE I/O RECORD 02/10/20 14:45 02/11/20 14:44 02/10/20 23:02 Justifications for Admission Other Justification RAHEL JOHN MD Feb 11, 2020 08:20
[2020-02-11] MEDS ORDERED: POTASSIUM CHLORIDE 20 MEQ TABLET.ER. PO ONE (08:30)
--- NOTE | 2020-02-11 09:08 | PATHOLOGY ---
[facility] Accession Number: [id number] . 01 Material submitted: . PART A: abdomen - ABDOMINAL WALL MASS #1. Modifiers: wall, 1 PART B: small bowel - SMALL BOWEL MESENTERIC MASS PART C: abdomen - ABDOMINAL WALL MASS #2. Modifiers: wall, 2 PART D: pancreas - DISTAL PANCREAS AND SPLEEN. Modifiers: distal PART E: abdomen - LUQ MESOCOLON MASS. Modifiers: left, upper . 01 Clinical history: . RECURRENT COLON CANCER . 02 Diagnosis: A. Fibroadipose and skeletal muscle tissue, abdominal wall mass #1: -METASTATIC POORLY DIFFERENTIATED COLORECTAL ADENOCARCINOMA, WITH FOCAL EXTENSIVE TUMOR NECROSIS. . B. Fibroadipose tissue, small bowel mesenteric mass: - METASTATIC POORLY DIFFERENTIATED COLORECTAL ADENOCARCINOMA WITH FOCAL TUMOR NECROSIS. . C. Fibroadipose and skeletal muscle tissue, abdominal wall mass #2: - METASTATIC POORLY DIFFERENTIATED COLORECTAL ADENOCARCINOMA, WITH EXTENSIVE TUMOR NECROSIS. . D. Distal pancreas, spleen, and attached adipose tissue, distal pancreatectomy and splenectomy: - METASTATIC POORLY DIFFERENTIATED COLORECTAL ADENOCARCINOMA OF DISTAL PANCREAS, FORMING A TUMOR MASS MEASURING 8.6 CM IN GREATEST DIMENSION AND SHOWING EXTENSIVE TUMOR NECROSIS, WITH FOCAL TUMOR INVASION OF ADJACENT SPLEEN. - THREE FOCI OF METASTATIC POORLY DIFFERENTIATED COLORECTAL ADENOCARCINOMA INVOLVING ATTACHED ADIPOSE TISSUE (OMENTUM), MEASURING UP TO 0.7 CM IN GREATEST DIMENSION. - Three peripancreatic and one splenic hilar lymph node negative for tumor. - Focal large vessel tumor invasion identified. - Focal perineural tumor invasion identified. - Pancreatic margin of resection negative for tumor. - Anterior pancreatic margin of resection negative for tumor. - Tumor close to posterior pancreatic margin of resection. - Extensive calcification and sclerosis of splenic artery with focal marked luminal stenosis. . E. Fibroadipose tissue, left upper quadrant mesocolon mass: - METASTATIC POORLY DIFFERENTIATED COLORECTAL ADENOCARCINOMA, SHOWING EXTENSIVE NECROSIS. . (JPM:lor/dania 02/10/2020) [facility] 02/11/2020 0849 Local . 02 Comment: The morphology of the tumor appears similar to that of the previous splenic flexure resection ([facility][id number]). (JPM:dania; 02/10/2020) . 02 Electronically signed: . Foster Amaro MD, Pathologist NPI- [id number] . 01 Gross description: . A. The specimen is received in formalin, labeled "Selden, Rosanne, abdominal wall mass 1" and consists of a white cordova to brown segment of nodular tissue measuring 3.8 x 2.5 x 1.5 cm. The margin is inked black. Sectioning is predominantly white cut surfaces and it is entirely submitted in A1-A5. . B. The specimen is received in formalin, labeled "Selden, Rosanne, small bowel mesenteric mass" and consists of a pink-cordova nodule measuring 0.9 x 0.9 0.6 cm. It is trisected revealing white cut surfaces and entirely submitted in B1. . C. The specimen is received in formalin, labeled "Selden, Rosanne, abdominal wall mass 2" and consists of a nodular segment of white cordova to brown tissue measuring 3.5 x 2.5 x 1.5 cm. The margin is inked black. It is serially sectioned revealing predominately white cut surfaces. It is entirely submitted in C1-C5. . D. The specimen is received in formalin, labeled "Vasquez, Rosanne, distal pancreas and spleen" and consists of the distal pancreas (7.5 x 6.5 x 3.5 cm), spleen (11.0 x 7.0 x 3.3 cm), and yellow lobulated tissue (possible omentum) measuring 15.0 x 10.0 cm. A suture is present at the pancreatic margin. There is a firm distinct white mass of the posterior pancreas abutting the spleen measuring 8.6 x 6.5 cm. The spleen capsule is intact brown. The pancreatic margin has a staple line which is removed and inked blue. Anterior is inked orange and posterior black. Upon removal of the pancreatic margin there are extensive calcifications of the peripancreatic vessels. The tumor grossly approaches the margin. Serial sectioning shows extensive replacement of pancreas by the tumor mass which has a soft friable and focally necrotic cut surface. The mass grossly abuts the anterior peripancreatic fat as well as the posterior margin. The mass shows invasion of the spleen. The uninvolved spleen is soft maroon. The hilar fat reveals no grossly identifiable lymph nodes. Present within the attached possible omental fat are 5 white nodules measuring up to 0.7 cm. Garden Implement Mechanic sections are submitted as follows: . D1-D4: Pancreatic margin, perpendicular (D2-D4 following decalcification) D5-D6: Mass to anterior D7: Mass to posterior D8-D9: Additional mass D10-D11: Mass to spleen D12: Hilar fat D13: One bisected omental nodule D14: 1 bisected omental nodule D15: 3 intact omental nodules . E. The specimen is received in formalin, labeled "Selden, Rosanne, LUQ mesocolon mass" and consists of a nodular segment of yellow cordova to brown tissue measuring 2.3 x 1.4 x 0.6 cm. Sectioning reveals predominantly white to yellow cut surfaces and it is entirely submitted in E1-E2. (SDY; 02/05/2020) SYU/SYU 02/10/[address] [place] [address] . Pathologist provided ICD-10: C79.2, C78.4, C78.89, C78.6 . 02 CPT . 557001, 463093, 948496, 568344, 564144, [id number] Specimen Comment: A courtesy copy of this report has been sent to [phone], [phone] Specimen Comment: [id number] Specimen Comment: Report sent to / DR BURT Performed at: 01 [facility] [address], [place] [id number] MD Sanchez Starks MD Phone: [phone] Performed at: 02 [facility] [address] [place], [place] [id number] MD Foster Amaro MD Phone: [phone]
[2020-02-11] MEDS: HYDROcodone/APAP 5/325MG 1 TAB TABLET PO PRN ×2 (09:09→18:37)
[2020-02-11] MEDS: MULTIVITAMIN with MINERAL TABLET. PO SCH (09:09)
[2020-02-11] MEDS: METOPROLOL TART IMMED RELEASE 50 MG TABLET. PO SCH ×2 (09:10→22:33)
[2020-02-11] MEDS: ATORVASTATIN CALCIUM 40 MG TABLET. PO SCH (09:10)
[2020-02-11] MEDS: amLODIPine BESYLATE 5 MG TABLET PO SCH (09:10)
[2020-02-11] MEDS: APIXABAN 2.5 MG TABLET. PO SCH ×2 (09:10→22:33)
[2020-02-11] MEDS: DOCUSATE SODIUM 100 MG CAPSULE. PO SCH (09:10)
[2020-02-11] MEDS: LOSARTAN POTASSIUM 50 MG TABLET. PO SCH (09:11)
--- NOTE | 2020-02-11 10:52 | PDOC ---
SURGICAL PROGRESS NOTE DATE: 02/11/20 TIME: 10:37 Subjective no complaints eating some pain managed Vital Signs Vital Signs Date Time Temp Pulse Resp B/P (MAP) Pulse Ox O2 Delivery O2 Flow Rate FiO2 02/11/20 09:11 116 147/91 02/11/20 09:09 94 Nasal Cannula 2.0 02/11/20 07:00 97.6 18 97.6 I&O Intake and Output 02/11/20 07:00 Intake Total 0 ml Output Total 2430 ml Balance -2430 ml Intake Oral 0 ml Output Urine Total 2250 ml Urine/Stool Mix 150 ml Drainage Total 30 ml General: Alert, Oriented X3, Cooperative Abdomen: Soft, Other (drain removed, migrated out) Labs Laboratory Tests Test 02/09/20 11:44 02/09/20 16:48 02/10/20 04:02 02/10/20 07:31 Glucose (Fingerstick) 117 mg/dL (70-99) 114 mg/dL (70-99) 104 mg/dL (70-99) Sodium Level 141 mmol/L (136-145) Potassium Level 3.4 mmol/L (3.5-5.1) Chloride Level 102 mmol/L (98-107) Carbon Dioxide Level 32 mmol/L (21-32) Anion Gap 7 (6-14) Blood Urea Nitrogen 6 mg/dL (7-20) Creatinine 0.7 mg/dL (0.6-1.0) Estimated GFR (Cockcroft-Gault) 79.0 Glucose Level 96 mg/dL (70-99) Calcium Level 8.6 mg/dL (8.5-10.1) Magnesium Level 1.4 mg/dL (1.8-2.4) Test 02/10/20 12:34 02/10/20 17:18 02/10/20 21:14 02/11/20 03:55 Glucose (Fingerstick) 123 mg/dL (70-99) 135 mg/dL (70-99) 150 mg/dL (70-99) Sodium Level 135 mmol/L (136-145) Potassium Level 3.5 mmol/L (3.5-5.1) Chloride Level 99 mmol/L (98-107) Carbon Dioxide Level 30 mmol/L (21-32) Anion Gap 6 (6-14) Blood Urea Nitrogen 6 mg/dL (7-20) Creatinine 0.7 mg/dL (0.6-1.0) Estimated GFR (Cockcroft-Gault) 79.0 Glucose Level 131 mg/dL (70-99) Calcium Level 8.7 mg/dL (8.5-10.1) Magnesium Level 2.1 mg/dL (1.8-2.4) Test 02/11/20 07:57 Glucose (Fingerstick) 121 mg/dL (70-99) Laboratory Tests Test 02/10/20 12:34 02/10/20 17:18 02/10/20 21:14 02/11/20 03:55 Glucose (Fingerstick) 123 mg/dL (70-99) 135 mg/dL (70-99) 150 mg/dL (70-99) Sodium Level 135 mmol/L (136-145) Potassium Level 3.5 mmol/L (3.5-5.1) Chloride Level 99 mmol/L (98-107) Carbon Dioxide Level 30 mmol/L (21-32) Anion Gap 6 (6-14) Blood Urea Nitrogen 6 mg/dL (7-20) Creatinine 0.7 mg/dL (0.6-1.0) Estimated GFR (Cockcroft-Gault) 79.0 Glucose Level 131 mg/dL (70-99) Calcium Level 8.7 mg/dL (8.5-10.1) Magnesium Level 2.1 mg/dL (1.8-2.4) Test 02/11/20 07:57 Glucose (Fingerstick) 121 mg/dL (70-99) Problem List d/w Dr Figueroa, they will take over as primary service stable surgically Justicifation of Admission Dx: Justifications for Admission: Justification of Admission Dx: Yes Aspiration Pneumonia: Hemodynamic Instability NICOLE PAINTER SMOKE JUMPER SUPERVISOR Feb 11, 2020 10:52
--- NOTE | 2020-02-11 12:07 | PDOC ---
UMA HUMPHRIES COAL DUMPING EQUIPMENT OPERATOR 02/11/20 1207: CARDIO Progress Notes Date and Time Date of Service 02/11/20 Time of Evaluation 1200 Subjective Subjective: No Chest Pain, No shortness of breath, No Palpitations, Other (feels tired, worn out) Vitals Vitals Vital Signs Date Time Temp Pulse Resp B/P (MAP) Pulse Ox O2 Delivery O2 Flow Rate FiO2 02/11/20 11:30 94 Nasal Cannula 2.0 02/11/20 09:11 116 147/91 02/11/20 07:00 97.6 18 97.6 Weight Weight [ ] Input and Output Intake and Output Intake and Output 02/11/20 07:00 Intake Total 0 ml Output Total 2430 ml Balance -2430 ml Intake Oral 0 ml Output Urine Total 2250 ml Urine/Stool Mix 150 ml Drainage Total 30 ml Laboratory Labs Laboratory Tests Test 02/10/20 12:34 02/10/20 17:18 02/10/20 21:14 02/11/20 03:55 Glucose (Fingerstick) 123 mg/dL (70-99) 135 mg/dL (70-99) 150 mg/dL (70-99) Sodium Level 135 mmol/L (136-145) Potassium Level 3.5 mmol/L (3.5-5.1) Chloride Level 99 mmol/L (98-107) Carbon Dioxide Level 30 mmol/L (21-32) Anion Gap 6 (6-14) Blood Urea Nitrogen 6 mg/dL (7-20) Creatinine 0.7 mg/dL (0.6-1.0) Estimated GFR (Cockcroft-Gault) 79.0 Glucose Level 131 mg/dL (70-99) Calcium Level 8.7 mg/dL (8.5-10.1) Magnesium Level 2.1 mg/dL (1.8-2.4) Test 02/11/20 07:57 02/11/20 11:52 Glucose (Fingerstick) 121 mg/dL (70-99) 132 mg/dL (70-99) Physical Exam HEENT: Neck Supple W Full Motion Chest: Symmetric LUNGS: Other (diminished bases) Heart: irregularly irregular (AFIB rate mostly controlled ) Abdomen: Other (soft ) Extremities: Other (trace bilateral LE edema ) Neurology: alert, oriented, follow commands, other ([place]) Assessment Assessment 1. Colon CA s/p colon resection 03/2019; recurrent with metastatic disease. 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 2. PAFIB; continues in AFIB. Rate mostly controlled, intermittent RVR noted 3. CAD s/p PCI/stenting; clinically stable. Recent echo with preserved LV syst olic function 4. Acute on chronic diastolic CHF; improved with diuresis. appears compensated. 5. Hypertension; labile today 5. Hyperlipidemia; statin therapy 6. Diabetes, II; as per PCP 7. CKD; Cr stable 8. Hypomagnesemia, hypomagnesemia; replaced. Recommendations Continue metoprolol for rate control Amidoarone therapy; Start Amiodarone 200mg PO daily when gtt complete Eliquis for stroke prophylaxis Oral Lasix Monitor lytes and replace as warranted Continue post-op management as per GS team Consider outpatient CV if she remains in AFIB Supportive care Justicifation of Admission Dx: Justifications for Admission: Justification of Admission Dx: Yes Aspiration Pneumonia: Hemodynamic Instability SHADY DELGADILLO MD 02/11/20 2000: CARDIO Progress Notes Assessment Assessment Patient seen and examined. Agree with DIE REPAIRER TRIMMER DIES's assessment and plan. Ac on chr diast HF better compensated. Continue diuretics CAD clinically stable AF rate better controlled, continue amiodarone for antiarrhythmic therapy and plan outpatient Cvn Continue eliquis for stroke prophylaxis Continue post op care per GS team UMA HUMPHRIES APRN Feb 11, 2020 12:07 SHADY DELGADILLO MD Feb 11, 2020 20:00
[2020-02-11] MEDS: AMIODARONE HCL 200 MG TABLET. PO SCH (15:51)
[2020-02-11] MEDS: LATANOPROST 0.005% OPHTH SOLUTION 2.5ML BOTTLE. OU SCH (21:00)
[2020-02-12 02:41] VITALS: BP 129/61
[2020-02-12 07:16] VITALS: BP 137/76
[2020-02-12 07:30] LABS: BASO # 0.1 x10^3/uL (0.0-0.2); BASO % 1 % (0-3); EOS # 0.4 x10^3/uL (0.0-0.7); EOS % 3 % (0-3); HEMATOCRIT 38.3 % (36.0-47.0); HEMOGLOBIN 12.5 g/dL (12.0-15.5); LYMPH # 1.3 x10^3/uL (1.0-4.8); LYMPH % 8 % (24-48); MEAN CORPUSCULAR HEMOGLOBIN 30 pg (25-35); MEAN CORPUSCULAR HGB CONC 33 g/dL (31-37); MEAN CORPUSCULAR VOLUME 93 fL (79-100); MONO # 1.8 x10^3/uL (0.0-1.1); MONO % 11 % (0-9); NEUT # 12.5 x10^3/uL (1.8-7.7); NEUT % 77 % (31-73); PLATELET COUNT 587 x10^3/uL (140-400); RED BLOOD COUNT 4.11 x10^6/uL (3.50-5.40); RED CELL DISTRIBUTION WIDTH 14.5 % (11.5-14.5); WHITE BLOOD COUNT 16.1 x10^3/uL (4.0-11.0)
[2020-02-12] MEDS ORDERED: POTASSIUM CHLORIDE 20 MEQ TABLET.ER. PO SCH (08:00)
--- NOTE | 2020-02-12 08:12 | PDOC ---
[employer] PROGRESS NOTE Date of Service DOS: DATE: 02/12/20 TIME: 08:12 Chief Complaint Chief Complaint A/P: Postop colon resection for a large mass in the splenic flexure CVA in 10/2015 Coronary artery disease with previous stent placement Type 2 diabetes Hyperlipidemia Hypertension Osteoarthritis Vitamin D deficiency Afib CKD Glaucoma Duodenal ulcer Hypoxia - new Vasomotor nephropathy - improved renal function with IVF resuscitation History of Present Illness History of Present Illness Ms Ovalle is an 88yo F w/ PMHx CVA in 10/2015, previous stent placement with coronary artery disease, type 2 diabetes, hyperlipidemia, hypertension, osteoarthritis and vitamin D deficiency who underwent a colon resection 04/09/2019 with successful reanastomosis, recovering well. Seen in consultation for medical management after recurrence of cancer noted. 02/02: Laparoscopic converted to open ex lap with excision of 2 left lower quadrant peritoneal rib implants, distal pancreatectomy and splenectomy, excision of small bowel mesenteric mass. 02/03: Patient with uncontrolled heart rate on cardizem GTT. 02/04: continues to need cardizem drip, no complaints during my visit. 02/05: The patient's pain is well controlled, the patient is complaining of discomfort from the NG tube and hoping to get it discontinued later in the day. Patient relates to me that she has been passing gases, I have discussed this with the surgical attending ROBBIE 02/08: Progressively more short of breath now on 3 L nasal cannulated oxygen. Pain well controlled. NGT out currently. Seen by hematology/oncology 02/09: Diuresed 3 L after Lasix administration. Started on amiodarone per cardiology. 02/10: On amio infusion currently. Seen with son, bedside. SILVIA drain has come out. On room air now. D/w family bedside she is improving. No CP or SOB at this time. Swelling improved. Pain well controlled. Good appetite. Transitioned to oral Amiodarone. Pathology returned positive for recurrence of colon ca, interested in pursuing keytruda. Plan to d/c home with home health with lasix 20mg, potassium, amiodarone and oncology and cardiology f/u as well as surgical f/u. Vitals/I&O Vitals/I&O: Vital Signs Date Time Temp Pulse Resp B/P (MAP) Pulse Ox O2 Delivery O2 Flow Rate FiO2 9/17/20 07:16 97.8 98 18 137/76 (96) 96 Room Air 97.8 02/11/20 19:37 2.0 I & O 02/11/20 02/11/20 02/12/20 15:00 23:00 07:00 Intake Total 100 ml 200 ml Output Total 900 ml 300 ml 1400 ml Balance -800 ml -100 ml -1400 ml Physical Exam General: Alert, Oriented X3, Cooperative Heart: No murmurs Lungs: Clear Abdomen: Soft, Other (drain removed, migrated out) Extremities: No edema, Normal pulses Skin: No rashes Labs Labs: Laboratory Tests Test 02/11/20 11:52 02/11/20 17:07 02/11/20 21:16 02/12/20 06:10 Glucose (Fingerstick) 132 mg/dL (70-99) 127 mg/dL (70-99) 131 mg/dL (70-99) White Blood Count 16.1 x10^3/uL (4.0-11.0) Red Blood Count 4.11 x10^6/uL (3.50-5.40) Hemoglobin 12.5 g/dL (12.0-15.5) Hematocrit 38.3 % (36.0-47.0) Mean Corpuscular Volume 93 fL (79-100) Mean Corpuscular Hemoglobin 30 pg (25-35) Mean Corpuscular Hemoglobin Concent 33 g/dL (31-37) Red Cell Distribution Width 14.5 % (11.5-14.5) Platelet Count 587 x10^3/uL (140-400) Neutrophils (%) (Auto) 77 % (31-73) Lymphocytes (%) (Auto) 8 % (24-48) Monocytes (%) (Auto) 11 % (0-9) Eosinophils (%) (Auto) 3 % (0-3) Basophils (%) (Auto) 1 % (0-3) Neutrophils # (Auto) 12.5 x10^3/uL (1.8-7.7) Lymphocytes # (Auto) 1.3 x10^3/uL (1.0-4.8) Monocytes # (Auto) 1.8 x10^3/uL (0.0-1.1) Eosinophils # (Auto) 0.4 x10^3/uL (0.0-0.7) Basophils # (Auto) 0.1 x10^3/uL (0.0-0.2) Test 02/12/20 06:49 Glucose (Fingerstick) 116 mg/dL (70-99) Comment Review of Relevant I have reviewed the following items goldy (where applicable) has been applied. Medications: Current Medications Medications (Trade) Dose Ordered Sig/Nelly Route PRN Reason Start Time Stop Time Status Last Admin Dose Admin Potassium Chloride (Klor-Con) 40 meq 1X ONCE PO 02/11/20 08:30 02/11/20 08:31 DC 02/11/20 09:13 Amiodarone HCl (Cordarone) 200 mg DAILY PO 02/11/20 15:00 02/11/20 15:51 Justifications for Admission Other Justification RAHEL JOHN MD Feb 12, 2020 08:12
[2020-02-12] MEDS: AMIODARONE HCL 200 MG TABLET. PO SCH (08:45)
[2020-02-12] MEDS: APIXABAN 2.5 MG TABLET. PO SCH (08:46)
[2020-02-12] MEDS: HYDROcodone/APAP 5/325MG 1 TAB TABLET PO PRN (08:46)
[2020-02-12] MEDS: DOCUSATE SODIUM 100 MG CAPSULE. PO SCH (08:46)
[2020-02-12] MEDS: MULTIVITAMIN with MINERAL TABLET. PO SCH (08:46)
[2020-02-12] MEDS: amLODIPine BESYLATE 5 MG TABLET PO SCH (08:46)
[2020-02-12] MEDS: LOSARTAN POTASSIUM 50 MG TABLET. PO SCH (08:47)
[2020-02-12] MEDS: METOPROLOL TART IMMED RELEASE 50 MG TABLET. PO SCH (08:48)
[2020-02-12] MEDS ORDERED: FUROSEMIDE 40 MG TABLET. PO SCH (09:00)
--- NOTE | 2020-02-12 09:25 | PDOC ---
SURGICAL PROGRESS NOTE DATE: 02/12/20 TIME: 09:23 Subjective eating some pain minimal Vital Signs Vital Signs Date Time Temp Pulse Resp B/P (MAP) Pulse Ox O2 Delivery O2 Flow Rate FiO2 02/12/20 08:48 98 137/76 02/12/20 08:46 Room Air 02/12/20 07:16 97.8 18 96 97.8 02/11/20 19:37 2.0 I&O Intake and Output 02/12/20 07:00 Intake Total 300 ml Output Total 2600 ml Balance -2300 ml Intake Oral 300 ml Output Urine Total 2050 ml Stool Total 400 ml Urine/Stool Mix 150 ml General: Alert, Oriented X3, Cooperative Abdomen: Soft, Other (ND) Labs Laboratory Tests Test 02/10/20 12:34 02/10/20 17:18 02/10/20 21:14 02/11/20 03:55 Glucose (Fingerstick) 123 mg/dL (70-99) 135 mg/dL (70-99) 150 mg/dL (70-99) Sodium Level 135 mmol/L (136-145) Potassium Level 3.5 mmol/L (3.5-5.1) Chloride Level 99 mmol/L (98-107) Carbon Dioxide Level 30 mmol/L (21-32) Anion Gap 6 (6-14) Blood Urea Nitrogen 6 mg/dL (7-20) Creatinine 0.7 mg/dL (0.6-1.0) Estimated GFR (Cockcroft-Gault) 79.0 Glucose Level 131 mg/dL (70-99) Calcium Level 8.7 mg/dL (8.5-10.1) Magnesium Level 2.1 mg/dL (1.8-2.4) Test 02/11/20 07:57 02/11/20 11:52 02/11/20 17:07 02/11/20 21:16 Glucose (Fingerstick) 121 mg/dL (70-99) 132 mg/dL (70-99) 127 mg/dL (70-99) 131 mg/dL (70-99) Test 02/12/20 06:10 02/12/20 06:49 White Blood Count 16.1 x10^3/uL (4.0-11.0) Red Blood Count 4.11 x10^6/uL (3.50-5.40) Hemoglobin 12.5 g/dL (12.0-15.5) Hematocrit 38.3 % (36.0-47.0) Mean Corpuscular Volume 93 fL (79-100) Mean Corpuscular Hemoglobin 30 pg (25-35) Mean Corpuscular Hemoglobin Concent 33 g/dL (31-37) Red Cell Distribution Width 14.5 % (11.5-14.5) Platelet Count 587 x10^3/uL (140-400) Neutrophils (%) (Auto) 77 % (31-73) Lymphocytes (%) (Auto) 8 % (24-48) Monocytes (%) (Auto) 11 % (0-9) Eosinophils (%) (Auto) 3 % (0-3) Basophils (%) (Auto) 1 % (0-3) Neutrophils # (Auto) 12.5 x10^3/uL (1.8-7.7) Lymphocytes # (Auto) 1.3 x10^3/uL (1.0-4.8) Monocytes # (Auto) 1.8 x10^3/uL (0.0-1.1) Eosinophils # (Auto) 0.4 x10^3/uL (0.0-0.7) Basophils # (Auto) 0.1 x10^3/uL (0.0-0.2) Glucose (Fingerstick) 116 mg/dL (70-99) Laboratory Tests Test 02/11/20 11:52 02/11/20 17:07 02/11/20 21:16 02/12/20 06:10 Glucose (Fingerstick) 132 mg/dL (70-99) 127 mg/dL (70-99) 131 mg/dL (70-99) White Blood Count 16.1 x10^3/uL (4.0-11.0) Red Blood Count 4.11 x10^6/uL (3.50-5.40) Hemoglobin 12.5 g/dL (12.0-15.5) Hematocrit 38.3 % (36.0-47.0) Mean Corpuscular Volume 93 fL (79-100) Mean Corpuscular Hemoglobin 30 pg (25-35) Mean Corpuscular Hemoglobin Concent 33 g/dL (31-37) Red Cell Distribution Width 14.5 % (11.5-14.5) Platelet Count 587 x10^3/uL (140-400) Neutrophils (%) (Auto) 77 % (31-73) Lymphocytes (%) (Auto) 8 % (24-48) Monocytes (%) (Auto) 11 % (0-9) Eosinophils (%) (Auto) 3 % (0-3) Basophils (%) (Auto) 1 % (0-3) Neutrophils # (Auto) 12.5 x10^3/uL (1.8-7.7) Lymphocytes # (Auto) 1.3 x10^3/uL (1.0-4.8) Monocytes # (Auto) 1.8 x10^3/uL (0.0-1.1) Eosinophils # (Auto) 0.4 x10^3/uL (0.0-0.7) Basophils # (Auto) 0.1 x10^3/uL (0.0-0.2) Test 02/12/20 06:49 Glucose (Fingerstick) 116 mg/dL (70-99) Assessment/Plan dc per [facility] FU in clinic few weeks Justicifation of Admission Dx: Justifications for Admission: Justification of Admission Dx: Yes Aspiration Pneumonia: Hemodynamic Instability NICOLE PAINTER RECEIVING DOCK CHECKER Feb 12, 2020 09:25
[2020-02-12 10:39] VITALS: BP 129/70
[2020-02-12] MEDS ORDERED: POTA10TA12 PO (12:30)
[2020-02-12] MEDS ORDERED: AMIO200T7 PO (12:30)
[2020-02-12] MEDS ORDERED: FURO-69 PO (12:30)
[2020-02-12] MEDS ORDERED: OXYC20TA PO (12:30)
--- NOTE | 2020-02-12 12:33 | SNU/HH DC ---
DISCHARGE WITH HOME HEALTH DISCHARGE INFORMATION: Discharge Date: Feb 12, 2020 Final Diagnosis: Metastatic colon cancer Condition on Discharge: Stable HOME HEALTH: Face to Face: I certify this patient is under my care and that I, or a nurse practitioner or physician's sales assistant entertainment and media working with me, had a face to face encounter that meets the physician face to face encounter requirements with this patient on 02/12/2020. Medical Complications: CHF, Other (Colon cancer) RN For Eval/Treatment: Yes Physical Therapy For: Evalulation/Treatment Occupational Therapy For: Evaluation/Treatment Home Health Aide For: Self-care BRAKE RELINER For: Community Resources Pt Meets Homebound Status: Extreme weakness w/ amb. POST DISCHARGE ORDERS: Activity Instructions for Disc: Activity as tolerated Weight Bearing Status after Di: Full weight bearing Bathing Instructions: No Tub Bath until see DIET AFTER DISCHARGE: Cardiac Wound/Incision Care: Ice to area for comfort, Change dressing, May get incision wet CHECKS AFTER DISCHARGE: Checks after discharge: Check blood press - daily, Check blood sugar, ac/hs, Check your Temp as needed FOLLOW-UP: Follow up with: Dr. Joseph Bustos Follow Up With: Dr. Darrell Lowe TREATMENT/EQUIPMENT ORDERS: Adaptive Equipment Issued: None CERTIFICATION STATEMENT: Certification Statement: Certification Statement: Based on the above finding, I certify that this patient is confined to the home and needs intermittent correction care, physical therapy and/or speech therapy, or continues to need occupational therapy.~ This patient is under my care, and I have initiated the establishment of the plan of care.~ This patient will be followed by myself or a community physician who will periodically review the plan of care. Home Meds Active Scripts Potassium Chloride (POTASSIUM CHLORIDE ) 10 Meq Tab.sr.24h, 10 MEQ PO DAILY for SUPPLEMENT for 30 Days, #30 TAB.SR 2 Refills Prov:RAHEL JHON MD 02/12/20 Amiodarone Hcl (PACERONE) 200 Mg Tablet, 200 MG PO DAILY for Afib for 30 Days, #30 TAB 2 Refills Prov:RAHEL JOHN MD 02/12/20 Furosemide (LASIX) 20 Mg Tablet, 1 TAB PO DAILY for CHF for 30 Days, #30 TAB 2 Refills Prov:RAHEL JOHN MD 02/12/20 Oxycodone Hcl (OXYCODONE HCL) 20 Mg Tablet, 10 MG PO PRN TID PRN for PAIN for 30 Days, #90 TAB 0 Refills Prov:RAHEL JOHN MD 02/12/20 Reported Medications Ondansetron Hcl (ZOFRAN) 8 Mg Tablet, 8 MG PO BID PRN for NAUSEA/VOMITING, TAB 01/30/20 Multivits-Min/Iron/FA/Lutein (Centrum Silver Women Tablet) 1 Each Tablet, 1 EACH PO DAILY for SUPPLEMENT, TAB 04/04/19 Famotidine (PEPCID) 20 Mg Tablet, 20 MG PO HS PRN for INDIGESTION, TAB 04/04/19 Atorvastatin Calcium (ATORVASTATIN CALCIUM) 40 Mg Tablet, 1 TAB PO QODAY, #30 TAB 5 Refills 01/27/17 Apixaban (ELIQUIS) 2.5 Mg Tablet, 2.5 MG PO BID 10/29/15 Metoprolol Tartrate (METOPROLOL TARTRATE) 100 Mg Tablet, 1 TAB PO BID, #60 TAB 5 Refills LAST DOSE GIVEN: DATE:08/30/16 TIME:82910/28/15 Amlodipine Besylate (AMLODIPINE BESYLATE) 5 Mg Tablet, 1 TAB PO DAILY08 for high blood pressure, TAB Last dose given: 8:30 a.m. Next dose due: 08-30-16 8:30 a.m. 06/18/14 Latanoprost (LATANOPROST) 2.5 Ml Drops, 1 DROP EACHEYE QHS for glaucoma, ML Last dose given: 08-31-16 9:00 p.m. Next dose due: tonight 06/18/14 Losartan Potassium (LOSARTAN POTASSIUM) 100 Mg Tablet, 1 TAB PO DAILY for high blood pressure, TAB Last dose given: 8:30 a.m. Next dose due: 08-30-16 8:30 a.m. 06/18/14 Metformin Hcl (METFORMIN HCL) 500 Mg Tablet, 250 MG PO BIDWMEALS for ANTI- DIABETIC, TAB Last dose given: 09/01/16 8:30 a.m. Next dose due: tonight 06/18/14 RAHEL JOHN MD Feb 12, 2020 12:33
--- NOTE | 2020-02-12 12:45 | PDOC ---
UMA HUMPHRIES FLIGHT TEST ENGINEER 02/12/20 1245: CARDIO Progress Notes Date and Time Date of Service 02/12/20 Time of Evaluation 1245 Subjective Subjective: No Chest Pain, No shortness of breath, No Palpitations Vitals Vitals Vital Signs Date Time Temp Pulse Resp B/P (MAP) Pulse Ox O2 Delivery O2 Flow Rate FiO2 02/12/20 10:39 98.0 79 18 129/70 (89) 94 Room Air 98.0 02/11/20 19:37 2.0 Weight Weight [ ] Input and Output Intake and Output Intake and Output 02/12/20 07:00 Intake Total 300 ml Output Total 2600 ml Balance -2300 ml Intake Oral 300 ml Output Urine Total 2050 ml Stool Total 400 ml Urine/Stool Mix 150 ml Laboratory Labs Laboratory Tests Test 02/11/20 17:07 02/11/20 21:16 02/12/20 06:10 02/12/20 06:49 Glucose (Fingerstick) 127 mg/dL (70-99) 131 mg/dL (70-99) 116 mg/dL (70-99) White Blood Count 16.1 x10^3/uL (4.0-11.0) Red Blood Count 4.11 x10^6/uL (3.50-5.40) Hemoglobin 12.5 g/dL (12.0-15.5) Hematocrit 38.3 % (36.0-47.0) Mean Corpuscular Volume 93 fL (79-100) Mean Corpuscular Hemoglobin 30 pg (25-35) Mean Corpuscular Hemoglobin Concent 33 g/dL (31-37) Red Cell Distribution Width 14.5 % (11.5-14.5) Platelet Count 587 x10^3/uL (140-400) Neutrophils (%) (Auto) 77 % (31-73) Lymphocytes (%) (Auto) 8 % (24-48) Monocytes (%) (Auto) 11 % (0-9) Eosinophils (%) (Auto) 3 % (0-3) Basophils (%) (Auto) 1 % (0-3) Neutrophils # (Auto) 12.5 x10^3/uL (1.8-7.7) Lymphocytes # (Auto) 1.3 x10^3/uL (1.0-4.8) Monocytes # (Auto) 1.8 x10^3/uL (0.0-1.1) Eosinophils # (Auto) 0.4 x10^3/uL (0.0-0.7) Basophils # (Auto) 0.1 x10^3/uL (0.0-0.2) Test 02/12/20 11:14 Glucose (Fingerstick) 141 mg/dL (70-99) Physical Exam HEENT: Neck Supple W Full Motion Chest: Symmetric LUNGS: Other (diminished bases) Heart: irregularly irregular (AFIB, rate controlled ) Abdomen: Other (soft ) Extremities: Other (trace bilateral LE edema ) Neurology: alert, oriented, follow commands, other ([place]) Assessment Assessment 1. Colon CA s/p colon resection 03/2019; recurrent with metastatic disease. 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 2. PAFIB; remains in AFIB. Rate controlled 3. CAD s/p PCI/stenting; clinically stable. Recent echo with preserved LV systolic function 4. Acute on chronic diastolic CHF; improved with diuresis. appears compensated. 5. Hypertension; controlled 5. Hyperlipidemia; statin therapy 6. Diabetes, II; as per PCP 7. CKD; Cr stable 8. Hypomagnesemia, hypomagnesemia; replaced. Recommendations Continue metoprolol for rate control Amidoarone therapy Eliquis for stroke prophylaxis Oral Lasix Consider outpatient CV if she remains in AFIB F/u in our office with Dr. Gayle as scheduled. Supportive care Justicifation of Admission Dx: Justifications for Admission: Justification of Admission Dx: Yes Aspiration Pneumonia: Hemodynamic Instability SHADY GAYLE MD 02/13/20 0717: CARDIO Progress Notes Assessment Assessment Patient seen and examined 02/12/20. Agree with SMOKEHOUSE OPERATOR's assessment and plan. Ac on chr diast HF better compensated. Continue diuretics CAD clinically stable AF rate better controlled, continue amiodarone for antiarrhythmic therapy and plan outpatient Cvn Continue eliquis for stroke prophylaxis Continue post op care per GS team Follow up with our office as scheduled UMA HUMPHRIES APRN Feb 12, 2020 12:45 SHADY GAYLE MD Feb 13, 2020 07:17
--- NOTE | 2020-02-12 14:22 | NUR ---
Discharge Note: JEFF NGUYỄN [facility] Discharge instructions and discharge home medications reviewed with Family Member and a copy given. All questions have been answered and understanding verbalized. The following instructions and handouts were given: discharge instructions, s/p surgery instructions, follow up appointments, medication education Discontinued lines and drains: peripheral IV, dressing clean, dry and intact. Patient discharged to home with home health via wheelchair
--- NOTE | 2020-02-13 03:40 | PDOC3 ---
Discharge Summary Visit Information Date of Admission: Feb 03, 2020 Date of Discharge: Feb 12, 2020 Admitting Diagnosis: Recurrent colon cancer Final Diagnosis Atrial fibrillation Brief Hospital Course Allergies Allergies Coded Allergies Type Severity Reaction Last Updated Verified MAHOGANY Inhibitors Allergy Intermediate 12/05/19 Yes Histamine H2 Inhibitors Allergy Intermediate Rash 12/05/19 Yes aspirin Adverse Reaction Intermediate GASTRIC IRRITATION 04/09/19 Yes Vital Signs Vital Signs Date Time Temp Pulse Resp B/P (MAP) Pulse Ox O2 Delivery O2 Flow Rate FiO2 02/12/20 10:39 98.0 79 18 129/70 (89) 94 Room Air 98.0 Lab Results Laboratory Tests Test 02/11/20 03:55 02/11/20 07:57 02/11/20 11:52 02/11/20 17:07 Sodium Level 135 mmol/L (136-145) Potassium Level 3.5 mmol/L (3.5-5.1) Chloride Level 99 mmol/L (98-107) Carbon Dioxide Level 30 mmol/L (21-32) Anion Gap 6 (6-14) Blood Urea Nitrogen 6 mg/dL (-20) Creatinine 0.7 mg/dL (0.6-1.0) Estimated GFR (Cockcroft-Gault) 79.0 Glucose Level 131 mg/dL (70-99) Calcium Level 8.7 mg/dL (8.5-10.1) Magnesium Level 2.1 mg/dL (1.8-2.4) Glucose (Fingerstick) 121 mg/dL (70-99) 132 mg/dL (70-99) 127 mg/dL (70-99) Test 02/11/20 21:16 02/12/20 06:10 02/12/20 06:49 02/12/20 11:14 Glucose (Fingerstick) 131 mg/dL (70-99) 116 mg/dL (70-99) 141 mg/dL (70-99) White Blood Count 16.1 x10^3/uL (4.0-11.0) Red Blood Count 4.11 x10^6/uL (3.50-5.40) Hemoglobin 12.5 g/dL (12.0-15.5) Hematocrit 38.3 % (36.0-47.0) Mean Corpuscular Volume 93 fL (79-100) Mean Corpuscular Hemoglobin 30 pg (25-35) Mean Corpuscular Hemoglobin Concent 33 g/dL (31-37) Red Cell Distribution Width 14.5 % (11.5-14.5) Platelet Count 587 x10^3/uL (140-400) Neutrophils (%) (Auto) 77 % (31-73) Lymphocytes (%) (Auto) 8 % (24-48) Monocytes (%) (Auto) 11 % (0-9) Eosinophils (%) (Auto) 3 % (0-3) Basophils (%) (Auto) 1 % (0-3) Neutrophils # (Auto) 12.5 x10^3/uL (1.8-7.7) Lymphocytes # (Auto) 1.3 x10^3/uL (1.0-4.8) Monocytes # (Auto) 1.8 x10^3/uL (0.0-1.1) Eosinophils # (Auto) 0.4 x10^3/uL (0.0-0.7) Basophils # (Auto) 0.1 x10^3/uL (0.0-0.2) Laboratory Tests Test 02/12/20 06:10 02/12/20 06:49 02/12/20 11:14 White Blood Count 16.1 x10^3/uL (4.0-11.0) Red Blood Count 4.11 x10^6/uL (3.50-5.40) Hemoglobin 12.5 g/dL (12.0-15.5) Hematocrit 38.3 % (36.0-47.0) Mean Corpuscular Volume 93 fL (79-100) Mean Corpuscular Hemoglobin 30 pg (25-35) Mean Corpuscular Hemoglobin Concent 33 g/dL (31-37) Red Cell Distribution Width 14.5 % (11.5-14.5) Platelet Count 587 x10^3/uL (140-400) Neutrophils (%) (Auto) 77 % (31-73) Lymphocytes (%) (Auto) 8 % (24-48) Monocytes (%) (Auto) 11 % (0-9) Eosinophils (%) (Auto) 3 % (0-3) Basophils (%) (Auto) 1 % (0-3) Neutrophils # (Auto) 12.5 x10^3/uL (1.8-7.7) Lymphocytes # (Auto) 1.3 x10^3/uL (1.0-4.8) Monocytes # (Auto) 1.8 x10^3/uL (0.0-1.1) Eosinophils # (Auto) 0.4 x10^3/uL (0.0-0.7) Basophils # (Auto) 0.1 x10^3/uL (0.0-0.2) Glucose (Fingerstick) 116 mg/dL (70-99) 141 mg/dL (70-99) Brief Hospital Course Ms Ovalle is an 88yo F w/ PMHx CVA in 10/2015, previous stent placement with coronary artery disease, type 2 diabetes, hyperlipidemia, hypertension, osteoarthritis and vitamin D deficiency who underwent a colon resection 04/09/2019 with successful reanastomosis, recovering well. Seen in consultation for medical management after recurrence of cancer noted. 02/02: Laparoscopic converted to open ex lap with excision of 2 left lower quadrant peritoneal rib implants, distal pancreatectomy and splenectomy, excision of small bowel mesenteric mass. 02/03: Patient with uncontrolled heart rate on cardizem GTT. 02/04: continues to need cardizem drip, no complaints during my visit. 02/05: The patient's pain is well controlled, the patient is complaining of discomfort from the NG tube and hoping to get it discontinued later in the day. Patient relates to me that she has been passing gases, I have discussed this with the surgical attending ROBBIE 02/08: Progressively more short of breath now on 3 L nasal cannulated oxygen. Pain well controlled. NGT out currently. Seen by hematology/oncology 02/09: Diuresed 3 L after Lasix administration. Started on amiodarone per cardiology. 02/10: On amio infusion currently. Seen with son, bedside. SILVIA drain has come out. On room air now. D/w family bedside she is improving. No CP or SOB at this time. Swelling improved. Pain well controlled. Good appetite. Transitioned to oral Amiodarone. Pathology returned positive for recurrence of colon ca, interested in pursuing keytruda. Plan to d/c home with home health with lasix 20mg, potassium, amiodarone and oncology and cardiology f/u as well as surgical f/u. Consults: General surgery, cardiology, hematology/oncology Problem list: Postop colon resection for a large mass in the splenic flexure CVA in 10/2015 Coronary artery disease with previous stent placement Type 2 diabetes Hyperlipidemia Hypertension Osteoarthritis Vitamin D deficiency Afib CKD Glaucoma Duodenal ulcer Hypoxia - new Vasomotor nephropathy - improved renal function with IVF resuscitation Greater than 30 minutes spent on d/c home with home health Discharge Information Condition at Discharge: Improved Follow Up: Weeks (1) Disposition/Orders: D/C to Home w/ HH Scheduled Amiodarone Hcl (Pacerone) 200 Mg Tablet, 200 MG PO DAILY for Afib for 30 Days, #30 Ref 2 Prescribed by: RAHEL JOHN MD on 02/12/20 1230 Amlodipine Besylate (Amlodipine Besylate) 5 Mg Tablet, 1 TAB PO DAILY08 for high blood pressure, (Reported) Entered as Reported by: JEANNETTE URENA on 06/18/141803 Last Action: Continued on 02/03/201703 by Marcelino Deleon Apixaban (Eliquis) 2.5 Mg Tablet, 2.5 MG PO BID, (Reported) Entered as Reported by: BETHANY VEGA on 10/29/15 1148 Last Taken: Unknown Dose on 01/30/20 Last Action: Continued on 02/08/20 1657 by MJ FORD RN Atorvastatin Calcium (Atorvastatin Calcium) 40 Mg Tablet, 1 TAB PO QODAY, #30 Ref 5 (Reported) Entered as Reported by: UMA WILKINS on 01/27/17 1607 Last Action: Continued on 02/03/201703 by Marcelino Deleon Furosemide (Lasix) 20 Mg Tablet, 1 TAB PO DAILY for CHF for 30 Days, #30 Ref 2 Prescribed by: RAHEL JOHN MD on 02/12/20 1230 Latanoprost (Latanoprost) 2.5 Ml Drops, 1 DROP EACHEYE QHS for glaucoma, (Reported) Entered as Reported by: JEANNETTE URENA on 06/18/141803 Last Action: Continued on 02/03/201703 by Marcelino Deleon Losartan Potassium (Losartan Potassium) 100 Mg Tablet, 1 TAB PO DAILY for high blood pressure, (Reported) Entered as Reported by: JEANNETTE URENA on 06/18/141803 Last Taken: Unknown Dose on 02/03/20 Last Action: Converted on 02/03/201703 by Marcelino Deleon Metformin Hcl (Metformin Hcl) 500 Mg Tablet, 250 MG PO BIDWMEALS for , (Reported) Entered as Reported by: JEANNETTE URENA on 06/18/14 180 Last Action: Continued on 02/03/201703 by Marcelino Deleon Metoprolol Tartrate (Metoprolol Tartrate) 100 Mg Tablet, 1 TAB PO BID for , #60 Ref 5 (Reported) Entered as Reported by: Jerilyn York on 10/28/15 0214 Last Taken: Unknown Dose on 02/03/20 0800 Last Action: Converted on 02/03/201703 by Marcelino Deleon Multivits-Min/Iron/FA/Lutein (Centrum Silver Women Tablet) 1 Each Tablet, 1 EACH PO DAILY for SUPPLEMENT, (Reported) Entered as Reported by: Nicolette Plaza on 04/04/191410 Last Action: Converted on 02/03/201703 by Marcelino Deleon Potassium Chloride (Potassium Chloride ) 10 Meq Tab.sr.24h, 10 MEQ PO DAILY for SUPPLEMENT for 30 Days, #30 Ref 2 Prescribed by: RAHEL JOHN MD on 02/12/20 1230 Scheduled PRN Famotidine (Pepcid) 20 Mg Tablet, 20 MG PO HS PRN for INDIGESTION, (Reported) Entered as Reported by: Nicolette Plaza on 04/04/19 141 Last Action: Continued on 02/03/201703 by Marcelino Deleon Ondansetron Hcl (Zofran) 8 Mg Tablet, 8 MG PO BID PRN for NAUSEA/VOMITING, (Reported) Entered as Reported by: NOBLE ALVAREZ on 01/30/20 1426 Last Action: Converted on 02/03/201703 by Marcelino Deleon Oxycodone Hcl (Oxycodone Hcl) 20 Mg Tablet, 10 MG PO PRN TID PRN for PAIN for 30 Days, #90 Ref 0 Prescribed by: RAHEL JOHN MD on 02/12/20 1232 Justicifation of Admission Dx: Justifications for Admission: Justification of Admission Dx: Yes Aspiration Pneumonia: Hemodynamic Instability RAHEL JOHN MD Feb 13, 2020 03:40
== END 2020-02-12 14:16 | disposition home health service (06) | DRG 326 ==
LOC: OPSVCIP 09:51 → 1 WEST ICU 17:30 → 2 SOUTH 02-05 18:00 → UNDODISIN 02-05 18:00
PROVIDERS: ADMIT Surgery; ATTEND Surgery
PROC: 0DB80ZZ Excision of Small Intestine, Open Approach (ICD-10-PCS; 2020-02-03)
PROC: 07TP0ZZ Resection of Spleen, Open Approach (ICD-10-PCS; principal; 2020-02-03 12:00)
PROC: 0FBG0ZZ Excision of Pancreas, Open Approach (ICD-10-PCS; 2020-02-03 12:00)
PROC: 0DJ64ZZ Inspection of Stomach, Percutaneous Endoscopic Approach (ICD-10-PCS; 2020-02-03 12:00)
DX: C18.9 Malignant neoplasm of colon, unspecified (principal); N17.0 Acute kidney failure with tubular necrosis; I50.33 Acute on chronic diastolic (congestive) heart failure; J96.01 Acute respiratory failure with hypoxia; E87.1 Hypo-osmolality and hyponatremia; D62 Acute posthemorrhagic anemia; G45.9 Transient cerebral ischemic attack, unspecified; I13.0 Hypertensive heart and chronic kidney disease with heart failure and stage 1 through stage 4 chronic kidney disease, or unspecified chronic kidney disease; R18.8 Other ascites; I48.91 Unspecified atrial fibrillation; E11.22 Type 2 diabetes mellitus with diabetic chronic kidney disease; E78.5 Hyperlipidemia, unspecified; E83.42 Hypomagnesemia; G89.3 Neoplasm related pain (acute) (chronic); H40.9 Unspecified glaucoma; I25.10 Atherosclerotic heart disease of native coronary artery without angina pectoris; I25.2 Old myocardial infarction; I48.0 Paroxysmal atrial fibrillation; K21.9 Gastro-esophageal reflux disease without esophagitis; K26.9 Duodenal ulcer, unspecified as acute or chronic, without hemorrhage or perforation; M19.90 Unspecified osteoarthritis, unspecified site; N18.3 Chronic kidney disease, stage 3 (moderate); Z53.31 Laparoscopic surgical procedure converted to open procedure; Z80.3 Family history of malignant neoplasm of breast; Z82.49 Family history of ischemic heart disease and other diseases of the circulatory system; Z83.3 Family history of diabetes mellitus; Z85.038 Personal history of other malignant neoplasm of large intestine; Z86.73 Personal history of transient ischemic attack (TIA), and cerebral infarction without residual deficits; Z86.79 Personal history of other diseases of the circulatory system; Z90.710 Acquired absence of both cervix and uterus; Z95.5 Presence of coronary angioplasty implant and graft; Z96.649 Presence of unspecified artificial hip joint; Z96.651 Presence of right artificial knee joint; Z90.49 Acquired absence of other specified parts of digestive tract; Z20.828 Contact with and (suspected) exposure to other viral communicable diseases
CPT/HCPCS: 36415; 51798; 71045; 74018; 80048; 80061; 82962; 83735; 84443; 85007; 85025; 85027; 87426; 88112; 88305; 88309; 93005; A7015; C1769; J0282; J0694; J1100; J1160; J1650; J1815; J1940; J2370; J2405; J2710; J3010; J3475; J3480; J3490; J7030; J7060; J7120; 97110-GO; 97110-GP; 97116-GP; 97530-GP; 97535-GO; G0378; U0003-CS

== ENCOUNTER → 2020-02-25 | Outpatient (CLI) | payer MEDICARE ==
[2020-02-12 10:39] VITALS: BP 129/70
[~2020-02-25] MED LIST changes: +AMIO200T7 PO; +FURO-69 PO; -HYDROmorphone 2 MG/ML VIAL IV PRN; -LIDOCAINE 1% PF 2 ML VIAL. ID PRN; -MORPHINE SULFATE 2 MG/ML VIAL. IV PRN; -ONDANSETRON PF 4 MG/2 ML VIAL. IV PRN; +POTA10TA12 PO; -PROCHLORPERAZINE 10 MG/2 ML VIAL. IV PRN; -cefOXitin SODIUM IV Push 2 GM VIAL. IVP PRN; -fentaNYL PF VIAL 100 MCG/2 ML VIAL IV PRN
[2020-02-25 10:20] LABS: BASO # 0.1 x10^3/uL (0.0-0.2); BASO % 1 % (0-3); EOS # 0.2 x10^3/uL (0.0-0.7); EOS % 2 % (0-3); HEMOGLOBIN 13.2 g/dL (12.0-15.5); LYMPH # 0.9 x10^3/uL (1.0-4.8); LYMPH % 9 % (24-48); MEAN CORPUSCULAR HEMOGLOBIN 31 pg (25-35); MEAN CORPUSCULAR HGB CONC 33 g/dL (31-37); MEAN CORPUSCULAR VOLUME 94 fL (79-100); MONO # 0.9 x10^3/uL (0.0-1.1); MONO % 9 % (0-9); NEUT # 7.8 x10^3/uL (1.8-7.7); NEUT % 80 % (31-73); PLATELET COUNT 415 x10^3/uL (140-400); RED BLOOD COUNT 4.27 x10^6/uL (3.50-5.40); RED CELL DISTRIBUTION WIDTH 15.4 % (11.5-14.5); WHITE BLOOD COUNT 9.8 x10^3/uL (4.0-11.0)
[2020-02-25 10:30] LABS: CALCIUM 9.1 mg/dL (8.5-10.1); CREATININE 1.2 mg/dL (0.6-1.0); GFR 42.4; POTASSIUM 4.2 mmol/L (3.5-5.1)
[2020-02-25 10:50] LABS: ALBUMIN 3.4 g/dL (3.4-5.0); ALBUMIN/GLOBULIN RATIO 1.1 (1.0-1.7); TOTAL BILIRUBIN 0.4 mg/dL (0.2-1.0); TOTAL PROTEIN 6.6 g/dL (6.4-8.2)
== END | disposition home or self-care (01) ==
LOC: ONCLAB 10:00
PROVIDERS: ATTEND Internal Medicine Hematology & Oncology
DX: C18.9 Malignant neoplasm of colon, unspecified (principal)
CPT/HCPCS: 80053; 82378; 85025

== ENCOUNTER → 2020-03-11 | Outpatient (CLI) | payer MEDICARE ==
[2020-02-12 10:39] VITALS: BP 129/70
[~2020-03-11] MED LIST changes: +AMLO-186 PO; -AMLO5TAB10 PO
[2020-03-11 09:46] LABS: BASO # 0.1 x10^3/uL (0.0-0.2); BASO % 1 % (0-3); EOS # 0.1 x10^3/uL (0.0-0.7); EOS % 1 % (0-3); HEMATOCRIT 41.9 % (36.0-47.0); HEMOGLOBIN 13.5 g/dL (12.0-15.5); LYMPH # 0.8 x10^3/uL (1.0-4.8); LYMPH % 9 % (24-48); MEAN CORPUSCULAR HEMOGLOBIN 30 pg (25-35); MEAN CORPUSCULAR HGB CONC 32 g/dL (31-37); MEAN CORPUSCULAR VOLUME 94 fL (79-100); MONO # 0.9 x10^3/uL (0.0-1.1); MONO % 10 % (0-9); NEUT # 6.9 x10^3/uL (1.8-7.7); NEUT % 78 % (31-73); PLATELET COUNT 389 x10^3/uL (140-400); RED BLOOD COUNT 4.46 x10^6/uL (3.50-5.40); RED CELL DISTRIBUTION WIDTH 15.3 % (11.5-14.5); WHITE BLOOD COUNT 8.9 x10^3/uL (4.0-11.0)
[2020-03-11 09:58] LABS: CALCIUM 9.1 mg/dL (8.5-10.1); CREATININE 1.3 mg/dL (0.6-1.0); GFR 38.7; POTASSIUM 4.3 mmol/L (3.5-5.1)
[2020-03-11 10:04] LABS: ALBUMIN/GLOBULIN RATIO 0.9 (1.0-1.7); TOTAL BILIRUBIN 0.4 mg/dL (0.2-1.0); TOTAL PROTEIN 6.4 g/dL (6.4-8.2)
== END ==
LOC: ONCLAB 09:29
PROVIDERS: ATTEND Internal Medicine Hematology & Oncology
DX: C18.9 Malignant neoplasm of colon, unspecified (principal)
CPT/HCPCS: 36415; 80053; 82378; 85025

== ENCOUNTER → 2020-03-12 | Outpatient (CLI) | payer MEDICARE ==
[2020-02-12 10:39] VITALS: BP 129/70
[~2020-03-12] MED LIST changes: +CONTRAST GIVEN. MC PRN; +IOHEXOL 240 MG/ML 50ML VIAL. PO ONE
--- NOTE | 2020-03-12 16:50 | RAD ---
CT scan of the chest, abdomen and pelvis without contrast 03/12/2020 CLINICAL HISTORY: Colon cancer. TECHNIQUE: After the oral administration of contrast only, contiguous, 5 mm axial sections were obtained through the chest, abdomen and pelvis. One or more of the following individualized dose reduction techniques were utilized for this study: 1. Automated exposure control. 2. Adjustment of the mA and/or kV according to patient size. 3. Use of iterative reconstruction technique. FINDINGS: Comparison is made to the patient's CT scan of the chest dated 01/16/2020. Additional comparison is made to the patient's CT scan of the abdomen and pelvis dated 12/23/2019. Atherosclerotic calcification of the thoracic aorta and its branches is noted. The thoracic aorta is tortuous but tapers normally. Extensive coronary artery calcifications are seen. The heart is mildly enlarged. Calcified hilar and mediastinal lymph nodes are seen which measure 8 mm to 2.3 cm in size. No hilar, mediastinal or axillary lymphadenopathy is seen. There is a small left pleural effusion which has increased slightly since the previous study. The small right pleural effusion seen on the previous study has resolved. Left lower lobe atelectasis and/or infiltrate is noted. Areas of scarring are seen involving the apices of both lungs. No pneumothorax is seen. A 4 mm nodular opacity is seen involving the right upper lobe (image #24 of 69) which is new since the previous examination. A 5 mm nodule is seen within the right lower lobe (image #44 of 69). A 6 mm nodule is seen within the right lower lobe (image 45 of 69). A 4 mm nodule is seen within the posterior aspect of the right lower lobe (image #46 of 69). A 5 mm nodule is seen involving the anterior medial aspect of the superior left upper lobe (image 14 of 69). These are new since the previous examination. No additional pulmonary nodule is seen. Punctate calcifications are seen scattered throughout the liver consistent with calcified granulomas. 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 The adrenal glands and kidneys are within normal limits. Atrophy of the pancreas is again seen. The cystic masses within the left upper quadrant abdomen seen near the tail of pancreas on the previous examination have resolved. No recurrent mass is seen. Atherosclerotic calcification of the abdominal aorta and its branches is noted. The abdominal aorta tapers normally. The the patient appears to be post cholecystectomy. A dilated cystic duct remnant is again noted. No free fluid or free air is seen within the abdomen. There is no evidence of bowel obstruction. No retroperitoneal lymphadenopathy is seen. Images through the pelvis demonstrate the urinary bladder distended with urine. The patient is post left JOSE. No free fluid is seen. No pelvic or inguinal lymphadenopathy is noted. The osseous structures are unchanged. IMPRESSION: 1. Several small new nodular opacities are seen scattered throughout both lungs concerning for pulmonary metastasis. 2. The cystic mass lesion seen within the left upper quadrant of the abdomen on the previous examination have resolved. Electronically signed by: Nikhil Yousif MD (03/12/2020 4:47 PM) [id number]
== END ==
LOC: CT 13:34
PROVIDERS: ATTEND Internal Medicine Hematology & Oncology
DX: C18.9 Malignant neoplasm of colon, unspecified (principal); J90 Pleural effusion, not elsewhere classified; R91.1 Solitary pulmonary nodule; J98.4 Other disorders of lung; I70.0 Atherosclerosis of aorta; Z90.49 Acquired absence of other specified parts of digestive tract; Z90.81 Acquired absence of spleen
CPT/HCPCS: 71250; 74176; Q9966

== ENCOUNTER → 2020-03-18 | Outpatient (CLI) | payer MEDICARE ==
[~2020-03-18] MED LIST changes: -CONTRAST GIVEN. MC PRN; -IOHEXOL 240 MG/ML 50ML VIAL. PO ONE
[2020-03-18 11:09] LABS: BASO # 0.2 x10^3/uL (0.0-0.2); BASO % 2 % (0-3); EOS # 0.1 x10^3/uL (0.0-0.7); EOS % 1 % (0-3); HEMATOCRIT 41.2 % (36.0-47.0); HEMOGLOBIN 13.5 g/dL (12.0-15.5); LYMPH # 0.7 x10^3/uL (1.0-4.8); LYMPH % 7 % (24-48); MEAN CORPUSCULAR HEMOGLOBIN 30 pg (25-35); MEAN CORPUSCULAR HGB CONC 33 g/dL (31-37); MEAN CORPUSCULAR VOLUME 93 fL (79-100); MONO % 10 % (0-9); NEUT # 8.9 x10^3/uL (1.8-7.7); NEUT % 81 % (31-73); PLATELET COUNT 512 x10^3/uL (140-400); RED BLOOD COUNT 4.44 x10^6/uL (3.50-5.40); RED CELL DISTRIBUTION WIDTH 15.3 % (11.5-14.5)
[2020-03-18 11:30] LABS: CALCIUM 9.4 mg/dL (8.5-10.1); CREATININE 1.2 mg/dL (0.6-1.0); GFR 42.4
[2020-03-18 11:36] LABS: ALBUMIN 2.7 g/dL (3.4-5.0); ALBUMIN/GLOBULIN RATIO 0.8 (1.0-1.7); TOTAL BILIRUBIN 0.3 mg/dL (0.2-1.0); TOTAL PROTEIN 6.2 g/dL (6.4-8.2)
== END ==
LOC: ONCLAB 10:55
PROVIDERS: ATTEND Internal Medicine Hematology & Oncology
DX: C18.9 Malignant neoplasm of colon, unspecified (principal)
CPT/HCPCS: 36415; 80053; 82378; 85025

== ENCOUNTER → 2020-04-01 | Outpatient (CLI) | payer MEDICARE ==
[2020-03-24 11:00] VITALS: BP 140/102
[~2020-04-01] MED LIST changes: +MIRT7.5T8 PO; +PSYL3.4P PO; +SERT25TA4 PO
[2020-04-01 10:09] LABS: BASO # 0.2 x10^3/uL (0.0-0.2); BASO % 1 % (0-3); EOS # 0.1 x10^3/uL (0.0-0.7); EOS % 1 % (0-3); HEMATOCRIT 40.3 % (36.0-47.0); HEMOGLOBIN 12.9 g/dL (12.0-15.5); LYMPH # 0.9 x10^3/uL (1.0-4.8); LYMPH % 7 % (24-48); MEAN CORPUSCULAR HEMOGLOBIN 29 pg (25-35); MEAN CORPUSCULAR HGB CONC 32 g/dL (31-37); MEAN CORPUSCULAR VOLUME 92 fL (79-100); MONO # 1.3 x10^3/uL (0.0-1.1); MONO % 10 % (0-9); NEUT % 82 % (31-73); PLATELET COUNT 497 x10^3/uL (140-400); RED CELL DISTRIBUTION WIDTH 15.4 % (11.5-14.5); WHITE BLOOD COUNT 13.4 x10^3/uL (4.0-11.0)
[2020-04-01 10:24] LABS: CALCIUM 9.2 mg/dL (8.5-10.1); CREATININE 0.9 mg/dL (0.6-1.0); GFR 59.1; POTASSIUM 4.5 mmol/L (3.5-5.1)
[2020-04-01 10:29] LABS: ALBUMIN 2.7 g/dL (3.4-5.0); ALBUMIN/GLOBULIN RATIO 0.8 (1.0-1.7); MAGNESIUM 1.8 mg/dL (1.8-2.4); TOTAL BILIRUBIN 0.4 mg/dL (0.2-1.0); TOTAL PROTEIN 6.1 g/dL (6.4-8.2)
[2020-04-01 10:39] LABS: FREE T4 1.44 ng/dL (0.76-1.46); THYROID STIM HORMONE (TSH) 7.522 uIU/mL (0.358-3.74)
== END ==
LOC: ONCLAB 09:31
PROVIDERS: ATTEND Internal Medicine Hematology & Oncology
DX: C18.9 Malignant neoplasm of colon, unspecified (principal)
CPT/HCPCS: 36415; 80053; 82024; 82378; 82533; 83615; 83735; 84439; 84443; 85025